=== PATIENT | female | born 1960 | race African-American/Black ===

== ENCOUNTER 2017-07-06 09:45 | Inpatient (IN) | payer MEDICAID ==
[~2017-07-06] VITALS: Ht 170.2 cm; Wt 80.7 kg
[~2017-07-06 09:45] MED LIST: ASPI-1169 PO; ATOR10TA PO; Folic Acid PO; HYDR25TA4 PO; LISI40TA4 PO; METO25TA20 PO; THIA100T13 PO
[2017-07-06] MEDS ORDERED: IV NS 0.9% 1,000 ML BAG IV ONE (10:30)
[2017-07-06] MEDS ORDERED: ONDANSETRON HCL/PF 4 MG/2 ML VIAL IVP ONE (10:30)
[2017-07-06 10:35] LABS: BASOPHILS # (AUTO) 0.3 /CMM (0.0-0.2); BASOPHILS % (AUTO) 3.6 % (0.0-2.0); EOSINOPHILS % (AUTO) 0.5 % (0.0-6.0); HEMATOCRIT 36 % (33-45); LYMPHOCYTES # (AUTO) 1.6 /CMM (0.8-4.8); LYMPHOCYTES % (AUTO) 20.4 % (20.0-44.0); MEAN CORPUSCULAR HEMOGLOBIN 32 PG (26.0-33.0); MEAN CORPUSCULAR HGB CONC 34 g/dl (31.0-36.0); MEAN CORPUSCULAR VOLUME 95 fL (82-100); MONOCYTES # (AUTO) 0.7 /CMM (0.1-1.30); MONOCYTES % (AUTO) 8.9 % (2.0-12.0); NEUTROPHILS # (AUTO) 5.4 /CMM (1.8-8.9); NEUTROPHILS % (AUTO) 66.6 % (43.0-81.0); PLATELET COUNT (AUTO) 289 /CMM (150-450); RDW COEFFICIENT OF VARIATION 13.4 (11.5-15.0); RED BLOOD CELL COUNT(AUTO) 3.79 MIL/uL (4.0-5.2)
[2017-07-06 10:49] LABS: INR 0.9 (0.85-1.15)
[2017-07-06 10:51] LABS: BILIRUBIN,DIRECT 0.3 mg/dL (0.0-0.2); BILIRUBIN,TOTAL 0.6 mg/dL (0.2-1.0); CALCIUM, SERUM 9.8 mg/dL (8.5-10.1); CREATININE 1.8 mg/dL (0.6-1.3); POTASSIUM 3.6 mmol/L (3.5-5.1); TOTAL PROTEIN, SERUM 8.1 g/dL (6.4-8.2)
[2017-07-06 10:53] LABS: TROPONIN I 0.064 ng/mL (0.00-0.056)
--- NOTE | 2017-07-06 11:00 | NUR ---
ASSUME PT CARE. FROM HOME C/O DIZZINESS AND NAUSEA FOR THE PAST 2 MONTHS AND GOT WORST THE PAST WEEK. PT ON MONITOR. HYPOTENSIVE. AAOX4. NO C/O CP. SEEN BY KAREN.
[2017-07-06] MEDS ORDERED: ONDANSETRON HCL/PF 4 MG/2 ML VIAL ONE (11:12)
--- NOTE | 2017-07-06 11:15 | NUR ---
RADIOLOGY AT BEDSIDE FOR CHEST XRAY.
--- NOTE | 2017-07-06 11:47 | NUR ---
CALLED [facility] EXPORT FREIGHT MANAGER WAS PAGED.
--- NOTE | 2017-07-06 12:16 | NUR ---
LAYO RANDOLPH CALLED, ON THE PHONE WITH DR FOWLER.
--- NOTE | 2017-07-06 12:21 | NUR ---
REPORT GIVEN TO NURSE. PT AWAITING TRANSFER TO FLOOR.
[2017-07-06] MEDS ORDERED: ASPIRIN 325 MG TABLET PO ONE (12:30)
[2017-07-06] MEDS ORDERED: ASPIRIN 325 MG TABLET ONE (12:33)
[2017-07-06 13:00] VITALS: BP_SYST 83; BP_SYST 94; BP_SYST 95; BP_DIAS 52; BP_DIAS 55; BP_DIAS 63
--- NOTE | 2017-07-06 13:00 | NUR ---
MOISTURE METER OPERATORELECTRICAL ENGINEERING TECHNICIAN NOTE PATIENT CAME FROM HOME COMPLAINING OF DIZZINESS FOR ABOUT TWO MONTHS AND PROGRESSIVELY GOT WORSE OVER A FEW WEEKS. PATIENT CAME TO ER, THEN ADMITTED FOR HYPONATREMIA. PATIENT IS ALERT AND ORIENTED x4. NO PAIN AT THIS TIME. NO SOB OR DISTRESS NOTED, ON ROOM AIR O2 SAT AT 100% TOLERATING WELL. RIGHT AC 20G IV INTACT AND PATENT. HISTORY OF HTN. CURRENTLY HAVING ORTHOSTATIC HYPOTENSION, CARDIO MD AWARE AWAITING CONSULT. AMBULATORY, NO SKIN ISSUES PRESENT. AWAITING MD ORDERS. NPO AT THIS TIME FOR US ABDOMEN TO RULE OUT ELEVATED LFT'S. TELE MONITOR-SR 78. WILL CONTINUE TO MONITOR THROUGHOUT SHIFT.
[2017-07-06 13:20] VITALS: BP 94/52
[2017-07-06] MEDS ORDERED: MAG HYDROX/AL HYDROX/SIMETH 30 ML UDC PO PRN (13:30)
[2017-07-06] MEDS ORDERED: MAGNESIUM HYDROXIDE 30 ML UDC PO PRN (13:30)
[2017-07-06] MEDS ORDERED: ACETAMINOPHEN 325 MG TABLET PO PRN (13:30)
[2017-07-06] MEDS ORDERED: ONDANSETRON HCL/PF 4 MG/2 ML VIAL IVP PRN (13:30)
[2017-07-06] MEDS ORDERED: HYDROCODONE/APAP 5/325MG 1 EACH TABLET PO PRN (13:30)
[2017-07-06] MEDS ORDERED: Z GUARD REMEDY 2 OZ OINT TP PRN (13:30)
[2017-07-06] MEDS ORDERED: LORAZEPAM INJ 2 MG/ML VIAL IV PRN (14:00)
[2017-07-06] MEDS: IV NS 0.9% 1,000 ML IV PRN (14:04)
--- NOTE | 2017-07-06 18:51 | NUR ---
SWIMMING POOL SERVICER CLOSING NOTE PATIENT IS RESTING COMFORTABLY AT THIS TIME. NO SOB OR DISTRESS NOTED. NO PAIN NOTED. ABLE TO COMMUNICATE NEEDS. IV INTACT AND PATENT WITH IV FLUIDS RUNNING AT 75 ML/HR. ABLE TO COMMUNICATE NEEDS. TELE MONITOR-80. AWAITING CARDIAC CONSULT WITH DR. GOMEZ. ALL NURSING CARE NEEDS ATTENDED. WILL ENDORSE TO BEEF CATTLE FARM MANAGER NURSE FOR TERESITA
--- NOTE | 2017-07-06 19:20 | NUR ---
TELE/RN NOTES RECEIVED PT. LYING IN BED. AWAKE, ALERT AND ORIENTED X4. BREATHING EVEN AND UNLABORED ON ROOM AIR. NO SOB, RESPIRATORY DISTRESS OR COMPLAINTS OF PAIN NOTED AT THIS TIME. NO COMPLAINTS OF LIGHTHEADED OR DIZZINESS AT THIS TIME. PT. WITH EXTERNAL AFFILIATE MARKETING COORDINATOR PRESENT AND INTACT. CURRENT RHYTHM = SINUS RHYTHM HR 99. PT. WITH RIGHT AC 20 GAUGE PERIPHERAL IV PRESENT, PATENT AND INTACT ADMINISTERING TO PT. NS @ 75 ML/HR. EDUCATED PT. ON CALLING FOR ASSISTANCE BEFORE AMBULATING. PT. VERBALIZED UNDERSTANDING. BED LOCKED AND IN LOWEST POSITION, SIDE RAILS UP X2, BED ALARM ON, CALL LIGHT WITHIN REACH, WILL CONTINUE TO MONITOR.
[2017-07-06 20:21] VITALS: BP 76/42
[2017-07-06 20:22] VITALS: BP 85/57
--- NOTE | 2017-07-06 23:45 | NUR ---
TELE/RN NOTES NOTIFIED EPIC SPEARER DR. WASHINGTON THAT PT. IS ON JAZZ SINGER AND IT IS SINUS RHYTHM WITH FIRST DEGREE BLOCK. UPON ADMISSION PT. WAS SINUS RHYTHM. PT. IS ASYMPTOMATIC. NO COMPLAINTS OF CHEST PAIN, SOB, LIGHTHEADED OR DIZZINESS. PER DR. WASHINGTON OK NO NEW ORDERS AT THIS TIME. WILL CONTINUE TO MONITOR.
[2017-07-07] VITALS: BP 97/61
--- NOTE | 2017-07-07 06:11 | NUR ---
TELE/RN NOTES PT. IS LYING IN BED. AWAKE, ALERT AND ORIENTED X4. BREATHING EVEN AND UNLABORED ON ROOM AIR. NO SOB, RESPIRATORY DISTRESS OR COMPLAINTS OF PAIN NOTED AT THIS TIME. NO COMPLAINTS OF LIGHTHEADED OR DIZZINESS AT THIS TIME AND THROUGHOUT SHIFT. PT. WITH EXTERNAL CHASSIS MECHANIC PRESENT AND INTACT. CURRENT RHYTHM = SINUS RHYTHM WITH FIRST DEGREE BLOCK HR 73. PT. WITH RIGHT AC 20 GAUGE PERIPHERAL IV PRESENT, PATENT AND INTACT ADMINISTERING TO PT. NS @ 75 ML/HR. ALL PT. NEEDS MET. BED LOCKED AND IN LOWEST POSITION, SIDE RAILS UP X2, BED ALARM ON, CALL LIGHT WITHIN REACH, WILL ENDORSE TO DAYSHIFT NURSE FOR CONTINUITY OF CARE.
[2017-07-07 07:18] LABS: BASOPHILS # (AUTO) 0.1 /CMM (0.0-0.2); BASOPHILS % (AUTO) 0.7 % (0.0-2.0); EOSINOPHILS # (AUTO) 0.1 /CMM (0.0-0.7); EOSINOPHILS % (AUTO) 0.9 % (0.0-6.0); HEMATOCRIT 32 % (33-45); HEMOGLOBIN 10.9 g/dL (11.5-14.8); LYMPHOCYTES # (AUTO) 2.4 /CMM (0.8-4.8); LYMPHOCYTES % (AUTO) 35.2 % (20.0-44.0); MEAN CORPUSCULAR HEMOGLOBIN 32 PG (26.0-33.0); MEAN CORPUSCULAR HGB CONC 34 g/dl (31.0-36.0); MEAN CORPUSCULAR VOLUME 94 fL (82-100); MONOCYTES # (AUTO) 0.8 /CMM (0.1-1.30); MONOCYTES % (AUTO) 12.4 % (2.0-12.0); NEUTROPHILS # (AUTO) 3.5 /CMM (1.8-8.9); NEUTROPHILS % (AUTO) 50.8 % (43.0-81.0); PLATELET COUNT (AUTO) 264 /CMM (150-450); RDW COEFFICIENT OF VARIATION 13.8 (11.5-15.0); RED BLOOD CELL COUNT(AUTO) 3.38 MIL/uL (4.0-5.2); WHITE BLOOD COUNT (AUTO) 6.8 K/uL (4.3-11.0)
[2017-07-07 07:47] LABS: ALBUMIN 3.7 g/dL (3.4-5.0); BILIRUBIN,DIRECT 0.2 mg/dL (0.0-0.2); BILIRUBIN,TOTAL 0.6 mg/dL (0.2-1.0); CALCIUM, SERUM 9.7 mg/dL (8.5-10.1); CREATININE 1.2 mg/dL (0.6-1.3); PHOSPHORUS 3.4 mg/dL (2.5-4.9); POTASSIUM 3.6 mmol/L (3.5-5.1); TOTAL PROTEIN, SERUM 7.6 g/dL (6.4-8.2)
[2017-07-07 07:57] LABS: THYROID STIMULATING HORMONE 0.801 uIU/mL (0.358-3.74)
[2017-07-07 08:00] VITALS: BP 102/71
--- NOTE | 2017-07-07 09:30 | NUR ---
BP IN AM INITIALLY ORTHOSTATIC,WITH PHYSICAL TX.PT. WITH LITTLE DIZZINESS AFTER THAT,INSTRUCTED TO GET UP SLOWLY.IV INFUSING NO NOTATION OF ALCOHOL WITHDRAWAL SYMPTOMS.FRIEND IN TO VISIT. MED COMPLIANT.
[2017-07-07] MEDS: ASPIRIN 81 MG TAB.CHEW PO SCH (09:57)
[2017-07-07] MEDS: IV NS 0.9% 1,000 ML IV PRN ×2 (09:59→22:48)
[2017-07-07 16:00] VITALS: BP 102/65
--- NOTE | 2017-07-07 18:00 | NUR ---
NO CHANGE IN STATUS.
--- NOTE | 2017-07-07 19:45 | NUR ---
RN Initial Notes Received pt laying in bed with HOB elevated. A/o x4 afebrile. Respirations are even and unlabored, not in any acute distress noted. Denies any pain at this time. IV to RAC intact, no infiltration noted. Dressing kept clean and dry. Safety measures in place. Instructed pt to use call light when assistance is needed, call light is left within reach. Will continue to monitor throughout shift.
[2017-07-07 20:00] VITALS: BP 95/63
--- NOTE | 2017-07-08 06:28 | NUR ---
RN Notes-- Orthostatics Lying-- BP 106/70 HR 77, R18, T98.1, SPO2 98% RA Sitting-- BP 112/70, HR 78, R18, T 98.1 SPO2 98% RA Standing-- BP 105/75 HR 84, R18, T98.1, SPO2 98% RA No dizziness noted. Will continue to monitor.
--- NOTE | 2017-07-08 06:30 | NUR ---
RN Closing Notes All due meds given, needs met and rendered. A/o x4, easily arousable, remains afebrile. Respirations are even and unlabored, not in any acute distress noted. Denies any pain, SOB, n/v. IV to RAC intact and patent, no infiltration noted. Dressing kept clean and dry. Pt able to reposition self. Safety measures in place. Reminded pt to use call light when assistance is needed, call light left within reach. Will endorse to next shift for continuity of care.
--- NOTE | 2017-07-08 07:30 | NUR ---
RN NOTES: - received on bed, alert, talking with co-patient non-labored respiration, denies pain , IV infusing well, tolerating oral fluids.
[2017-07-08 08:00] VITALS: BP 112/70
[2017-07-08] MEDS: ASPIRIN 81 MG TAB.CHEW PO SCH (08:52)
--- NOTE | 2017-07-08 14:25 | NUR ---
- dISCHARGED INSTRUCTIONS GIVEN WITH EMPHASIS TO HAVE HER PHYSICAL CHANGE OF POSITION FROM LYING DOWN TO SITTING THEN TO STANDING IN SLOW MOVEMENT TO PREVENT SUDDEN DECREASE OF BLOOD PRESSURE THUS AVOIDING DIZZINESS, TO DRINK MORE ORAL FLUIDS & TO FOLLW UP WITH OWN MD AT [facility]. PATIENT WAS DISCHARGED ALERT, & ORIENTED X4, WAS TRANSPORTED DOWN VIA WHEELCHAIR BY ASSIGNED STONEMASON APPRENTICE.IV SITE WAS REMOVED & APPLIED WITH PRESSURE DRESSING.
== END 2017-07-08 14:29 | disposition home or self-care (01) | DRG 204 ==
LOC: ER 09:46 → TELE 12:34 → MED 07-07 10:55
PROVIDERS: ADMIT Nurse Practitioner Acute Care; ATTEND Nurse Practitioner Acute Care
DX: I95.1 Orthostatic hypotension (principal); N17.0 Acute kidney failure with tubular necrosis; I21.A1 Myocardial infarction type 2; K76.0 Fatty (change of) liver, not elsewhere classified; K70.10 Alcoholic hepatitis without ascites; E86.0 Dehydration; E87.1 Hypo-osmolality and hyponatremia; I10 Essential (primary) hypertension; Z86.73 Personal history of transient ischemic attack (TIA), and cerebral infarction without residual deficits; T50.2X5A Adverse effect of carbonic-anhydrase inhibitors, benzothiadiazides and other diuretics, initial encounter; Y92.009 Unspecified place in unspecified non-institutional (private) residence as the place of occurrence of the external cause; R74.0 Nonspecific elevation of levels of transaminase and lactic acid dehydrogenase [LDH]; D64.9 Anemia, unspecified; F10.10 Alcohol abuse, uncomplicated; Y90.9 Presence of alcohol in blood, level not specified
CPT/HCPCS: 36415; 70450-TC; 71045-TC; 76700-TC; 80048-TC; 80061-TC; 80076-TC; 83605-TC; 83735-TC; 83935-TC; 84100-TC; 84443-TC; 84484-TC; 85025-TC; 85730-TC; 87081-TC; 93307-TC; 97116-TC; 97530-TC; A4606; J2405; J7030; Z7610

== ENCOUNTER 2019-07-02 02:24 | Emergency (ER) | payer MEDICAID ==
[~2019-07-02] VITALS: Ht 170.2 cm; Wt 81.6 kg
[~2019-07-02 02:24] MED LIST changes: -ATOR10TA PO; -Folic Acid PO; -HYDR25TA4 PO; -LISI40TA4 PO; -METO25TA20 PO; -THIA100T13 PO
--- NOTE | 2019-07-02 02:48 | NUR ---
PT CAME TO [facility] 4 W/ C/O SOB WHEN LYING DOWN. PT STATES IT HAPPENED WHEN SHE WOKE UP AND FELT UNCOMFORTABLE BREATHING. AAOX4. NO SOB. BREATHING EVENLY AND UNLABORED ON ROOM AIR. CONNECTED TO MORTGAGE LOAN SPECIALIST.
--- NOTE | 2019-07-02 02:49 | NUR ---
PT SEEN AND EXAMINED BY
--- NOTE | 2019-07-02 03:03 | NUR ---
XRAY AT BEDSIDE
--- NOTE | 2019-07-02 03:03 | NUR ---
BLOOD DRAWN AND SENT TO LAB FOR TESTING
[2019-07-02 03:07] LABS: BASOPHILS # (AUTO) 0.1 /CMM (0.0-0.2); BASOPHILS % (AUTO) 1.2 % (0.0-2.0); EOSINOPHILS % (AUTO) 0.3 % (0.0-6.0); HEMATOCRIT 41 % (33-45); HEMOGLOBIN 14.4 g/dL (11.5-14.8); LYMPHOCYTES # (AUTO) 1.7 /CMM (0.8-4.8); LYMPHOCYTES % (AUTO) 25.9 % (20.0-44.0); MEAN CORPUSCULAR HGB CONC 35 g/dl (31.0-36.0); MEAN CORPUSCULAR VOLUME 92 fL (82-100); MONOCYTES # (AUTO) 0.5 /CMM (0.1-1.30); MONOCYTES % (AUTO) 7.4 % (2.0-12.0); NEUTROPHILS # (AUTO) 4.3 /CMM (1.8-8.9); NEUTROPHILS % (AUTO) 65.2 % (43.0-81.0); PLATELET COUNT (AUTO) 245 /CMM (150-450); WHITE BLOOD COUNT (AUTO) 6.6 K/uL (4.3-11.0)
[2019-07-02 03:23] LABS: CALCIUM, SERUM 9.9 mg/dL (8.5-10.1); CREATININE 0.8 mg/dL (0.6-1.3); POTASSIUM 3.8 mmol/L (3.5-5.1)
[2019-07-02] MEDS ORDERED: ASPIRIN 325 MG TABLET PO ONE (04:00)
[2019-07-02] MEDS ORDERED: NITROGLYCERIN 0.4 MG/TAB BOTTLE SL ONE (04:00)
[2019-07-02] MEDS ORDERED: ENOXAPARIN SODIUM 80 MG/0.8 ML DISP.SYRIN SQ ONE (04:00)
[2019-07-02] MEDS ORDERED: ENOXAPARIN SODIUM 100 MG/ML DISP.SYRIN SQ ONE (04:07)
--- NOTE | 2019-07-02 05:07 | NUR ---
DR. FREY ON THE PHONE WITH DR. KENDRICK ([facility])
--- NOTE | 2019-07-02 05:29 | NUR ---
FAXED CLINICAL INFORMATION TO [facility]
--- NOTE | 2019-07-02 05:35 | NUR ---
DR. FREY ON THE PHONE WITH DR. ALEIDA GANN FOR POSSIBLE TRANSFER
--- NOTE | 2019-07-02 05:45 | NUR ---
PER [facility], ACOUSTICAL CARPENTER RECOMMEND CTA CHEST R/O PE FAX RESULTS TO [phone]
[2019-07-02] MEDS ORDERED: IOHEXOL-350 100 ML VIAL IV ONE (05:52)
[2019-07-02] MEDS ORDERED: CT SWABBABLE VALVE TRANS SET 1 EA INFUS.SET MC ONE (05:52)
[2019-07-02] MEDS ORDERED: IV NS 0.9% 250 ML IV ONE (05:52)
[2019-07-02] MEDS ORDERED: diphenhydrAMINE HCL 50 MG/ML VIAL ONE (06:10)
[2019-07-02] MEDS ORDERED: methylPREDNISolone SOD SUCC 125 MG/2ML VIAL ONE (06:10)
--- NOTE | 2019-07-02 06:10 | NUR ---
PT STATES SHE HAS A SHELLFISH ALLERGY, PER VERBAL MD ORDER WILL ADMINISTER BENADRYL 50MG IV X1 NOW AND SOLUMEDROL 125MG IV X1 NOW PRIOR TO CT
--- NOTE | 2019-07-02 06:26 | NUR ---
RECEIVED AUTHORIZATION FROM NICKY ([employer]) FOR PATIENT'S ADMISSION.
[2019-07-02] MEDS ORDERED: diphenhydrAMINE HCL 50 MG/ML VIAL IV ONE (06:30)
[2019-07-02] MEDS ORDERED: methylPREDNISolone SOD SUCC 125 MG/2ML VIAL IV ONE (06:30)
--- NOTE | 2019-07-02 06:30 | NUR ---
PT RETURNED FROM CT
[2019-07-02] MEDS ORDERED: LORAZEPAM INJ 2 MG/ML VIAL ONE ×2 (07:17→08:54)
[2019-07-02] MEDS ORDERED: LORAZEPAM INJ 2 MG/ML VIAL IV ONE ×2 (07:30→09:00)
--- NOTE | 2019-07-02 07:51 | NUR ---
PATIENT ALERT AND ORIENTED X4, BREATHING EVEN AND UNLABORED, DENIES PAIN AT THIS TIME. KEPT COMFORTABLE.
[2019-07-02 07:56] VITALS: BP 119/72
[2019-07-02] MEDS ORDERED: ATOR40TA PO (07:56)
[2019-07-02] MEDS ORDERED: HYDR25TA4 PO (07:56)
[2019-07-02] MEDS ORDERED: LISI40TA4 PO (07:56)
[2019-07-02] MEDS ORDERED: AMLO5TAB9 PO (07:56)
--- NOTE | 2019-07-02 08:15 | NUR ---
CALLED [facility] TELESTROKE AND SPOKE WITH CARLTON. SHE RECIEVED THE FAX OF THE CTA AND WILL RUN IT BY HER SPECIAL EFFECTS SPECIALIST. WILL CALL BACK AFTER CARDIO LOOKS OVER RESULTS.
--- NOTE | 2019-07-02 08:42 | NUR ---
CALLED [facility] AND TELESTROKE. SPOKE WITH CARLTON AND THE CCT TRANSFER TEAM WILL PROFESSOR OF LEGAL STUDIES THE PT. SHE WILL BE GOING INTO PICK UP OPERATOR TOMORROW MORNING. ETA 1 HR.
--- NOTE | 2019-07-02 09:25 | NUR ---
REPORT AMARIST Jg ARREDONDO CCRT AND MARBELLA RN AT [facility]. PATIENT WILL GO TO ROOM 2320. PATIENT IN STABLE CONDITION.
--- NOTE | 2019-07-02 09:39 | NUR ---
PATIENT TRANSFERRED TO [facility] IN STABLE CONDITION.
== END 2019-07-02 09:40 | disposition short-term general hospital (02) ==
LOC: ER 02:25
DX: I21.4 Non-ST elevation (NSTEMI) myocardial infarction (principal); R06.02 Shortness of breath; F10.239 Alcohol dependence with withdrawal, unspecified; I10 Essential (primary) hypertension; E78.00 Pure hypercholesterolemia, unspecified; Y90.9 Presence of alcohol in blood, level not specified; Z91.013 Allergy to seafood; Z60.2 Problems related to living alone; Z79.82 Long term (current) use of aspirin
CPT/HCPCS: 36415; 71045; 71275; 80048; 83880; 84484 ×2; 85025; 85378; 93005 ×5; 96372; 96374; 96375; 96376; 99291; J1200; J1650; J2060 ×2; J2930; J7050; Q9967

== ENCOUNTER 2019-11-21 00:37 | Inpatient (IN) | payer MEDICAID ==
[~2019-11-21] VITALS: Ht 170.2 cm; Wt 84.4 kg
[~2019-11-21 00:37] MED LIST changes: +AMLO5TAB9 PO; +ATOR40TA PO; +HYDR25TA4 PO; +LISI40TA4 PO
--- NOTE | 2019-11-21 00:40 | NUR ---
PT AAOX4. BIBRA 839 C/O R SIDED ABD PAIN RADIATING TO THE BACK X 4 DAYS. PT STATED IT HAS BEEN HURTING AND TODAY GOT WORSE. PT PLACED ON MECHANICAL MAINTENANCE TECHNICIAN AND PULSE OX. RR EVEN AND UNLABORED.
--- NOTE | 2019-11-21 00:42 | NUR ---
LABS DRAW. LINE INITIATED L HAND 20G
--- NOTE | 2019-11-21 01:17 | NUR ---
care transition manager at bedside
[2019-11-21 01:22] LABS: BASOPHILS # (AUTO) 0.1 /CMM (0.0-0.2); EOSINOPHILS % (AUTO) 2.1 % (0.0-6.0); HEMATOCRIT 41 % (33-45); HEMOGLOBIN 14.3 g/dL (11.5-14.8); LYMPHOCYTES # (AUTO) 4.3 /CMM (0.8-4.8); LYMPHOCYTES % (AUTO) 60.6 % (20.0-44.0); MEAN CORPUSCULAR HGB CONC 35 g/dl (31.0-36.0); MEAN CORPUSCULAR VOLUME 90 fL (82-100); MONOCYTES # (AUTO) 0.6 /CMM (0.1-1.30); MONOCYTES % (AUTO) 8.8 % (2.0-12.0); NEUTROPHILS # (AUTO) 1.9 /CMM (1.8-8.9); NEUTROPHILS % (AUTO) 27.5 % (43.0-81.0); PLATELET COUNT (AUTO) 222 /CMM (150-450); RED BLOOD CELL COUNT(AUTO) 4.53 MIL/uL (4.0-5.2); WHITE BLOOD COUNT (AUTO) 7.1 K/uL (4.3-11.0)
--- NOTE | 2019-11-21 01:24 | NUR ---
xray at bedside
[2019-11-21] MEDS ORDERED: IV NS 0.9% 500 ML BAG IV ONE (01:30)
[2019-11-21] MEDS ORDERED: ONDANSETRON HCL/PF 4 MG/2 ML VIAL IVP ONE (01:30)
[2019-11-21] MEDS ORDERED: MORPHINE SULFATE INJ 2 MG/ML DISP.SYRIN IV ONE (01:30)
[2019-11-21 01:37] LABS: ALBUMIN 4.1 g/dL (3.4-5.0); BILIRUBIN,DIRECT 0.1 mg/dL (0.0-0.2); BILIRUBIN,TOTAL 0.5 mg/dL (0.2-1.0); CALCIUM, SERUM 9.2 mg/dL (8.5-10.1); CREATININE 0.8 mg/dL (0.6-1.3); POTASSIUM 3.5 mmol/L (3.5-5.1); TOTAL PROTEIN, SERUM 8.2 g/dL (6.4-8.2)
--- NOTE | 2019-11-21 01:50 | NUR ---
PT STATED SHE DOES NOT WANT MORPHINE.
[2019-11-21] MEDS ORDERED: LORAZEPAM INJ 2 MG/ML VIAL IV ONE ×2 (02:00→14:30)
--- NOTE | 2019-11-21 02:02 | NUR ---
PT AMBULATED TO THE RESTROOM.
[2019-11-21] MEDS ORDERED: LORAZEPAM INJ 2 MG/ML VIAL ONE (02:12)
--- NOTE | 2019-11-21 02:19 | NUR ---
SPOKE TO PT REGARDING HOME MEDS. PT PROVIDED 3 HOME MEDS BUT STATED SHE TAKES MORE. I ASKED PT TO CALL FAMILY TO OBTAIN FULL LIST. VSS.
--- NOTE | 2019-11-21 02:22 | NUR ---
URINE SENT TO LAB
[2019-11-21 02:51] LABS: APPEARANCE,URINE CLEAR (CLEAR); BILIRUBIN,URINE NEGATIVE (NEGATIVE); BLOOD, URINE NEGATIVE Ery/uL (NEGATIVE); COLOR,URINE YELLOW (YELLOW); KETONES,URINE NEGATIVE (NEGATIVE); LEUKOCYTE ESTERASE ,URINE TRACE (NEGATIVE); NITRITE, URINE NEGATIVE (NEGATIVE); PH,URINE 7.5 (5.0-8.0); PROTEIN,URINE NEGATIVE (NEGATIVE); UGLUCOSE NEGATIVE (NEGATIVE)
[2019-11-21 02:53] LABS: BACTERIA,URINE Few /HPF (None Seen); RBC,URINE 0-2 /HPF (0-2); SQUAMOUS EPITHELIAL CELL,UR Moderate /HPF (None Seen)
[2019-11-21] MEDS ORDERED: ONDANSETRON HCL/PF 4 MG/2 ML VIAL IVP PRN (03:00)
[2019-11-21] MEDS ORDERED: IV NS 0.9% 500 ML IV ONE (03:00)
[2019-11-21] MEDS ORDERED: MAG HYDROX/AL HYDROX/SIMETH 30 ML UDC PO PRN (03:00)
[2019-11-21] MEDS ORDERED: DOCUSATE SODIUM 100 MG CAPSULE PO PRN (03:00)
[2019-11-21] MEDS ORDERED: NITROGLYCERIN 0.4 MG/TAB BOTTLE SL PRN (03:00)
[2019-11-21] MEDS ORDERED: ACETAMINOPHEN 325 MG TABLET PO PRN (03:00)
--- NOTE | 2019-11-21 03:41 | NUR ---
REPORT GIVEN TO TELE FOR TERESITA
--- NOTE | 2019-11-21 03:55 | NUR ---
PT TRANSFERED PER ACLS PROTOCOL
--- NOTE | 2019-11-21 04:00 | NUR ---
HEAD CD REACTOR OPERATOR OPEN NOTES RECEIVED PT FROM ER VIA RADHA. PATIENT IS A/O X4. ON RA, NO SOB/ ACUTE RESPIRATORY DISTRESS NOTED. AMBULATORY. APPEARS COMFORTABLE/ NO COMPLAINTS OF PAIN AT THE MOMENT. PATIENT ORIENTED TO ROOM. BED IS IN LOWEST LOCKED POSITION WITH SIDE RAILS UP X2, SEMI FOWLERS. CALL LIGHT IS WITHIN REACH. VITALS UPON ADMISSION: 120/87, HR 106, RR 18, TEMP 98.8 O2 SAT 96%
--- NOTE | 2019-11-21 06:17 | NUR ---
RN CLOSE NOTES PATIENT IS LAYING IN BED. A/O X4. ON RA, NO SOB/ ACUTE RESPIRATORY DISTRESS NOTED. APPEARS COMFORTABLE/ NO COMPLAINTS OF PAIN AT THE MOMENT. IV ON L HAND #20G IS PATENT AND INTACT. PATIENT IS AMBULATORY. BED IS IN LOWEST LOCKED POSITION WITH SIDE RAILS UP X2, SEMI FOWLERS. CALL LIGHT IS WITHIN REACH. WILL ENDORSE TO AM NURSE.
--- NOTE | 2019-11-21 06:30 | NUR ---
RN NOTES VTE SCORE: 2 COMPRESSION DEVICE APPLIED TO BOTH LEGS AND PATIENT IS ON LOVENOX.
--- NOTE | 2019-11-21 07:30 | NUR ---
RN OPENING NOTES PATIENT AWAKE IN BED RESTING. NOT IN NAY FORM OF DISTRESS, NO SOB. DENIED CHEST PAIN OR DISCOMFORT. IV ACCESS INTACT AND PATENT. KEPT PATIENT SAFE AND COMFORTABLE. BED IN LOW, LOCKED POSITION. SIDERAILS UPX2,C ALL LIGHT IN REACH. WILL CONT TO MONITOR ACCORDINGLY.
[2019-11-21] MEDS ORDERED: IV NS 0.9% 1,000 ML IV PRN (07:41)
[2019-11-21 08:20] LABS: BASOPHILS # (AUTO) 0.1 /CMM (0.0-0.2); EOSINOPHILS % (AUTO) 0.3 % (0.0-6.0); HEMATOCRIT 40 % (33-45); HEMOGLOBIN 14.1 g/dL (11.5-14.8); LYMPHOCYTES # (AUTO) 2.4 /CMM (0.8-4.8); LYMPHOCYTES % (AUTO) 36.7 % (20.0-44.0); MEAN CORPUSCULAR HGB CONC 36 g/dl (31.0-36.0); MEAN CORPUSCULAR VOLUME 89 fL (82-100); MONOCYTES # (AUTO) 0.6 /CMM (0.1-1.30); MONOCYTES % (AUTO) 9.3 % (2.0-12.0); NEUTROPHILS # (AUTO) 3.4 /CMM (1.8-8.9); NEUTROPHILS % (AUTO) 52.7 % (43.0-81.0); PLATELET COUNT (AUTO) 219 /CMM (150-450); RED BLOOD CELL COUNT(AUTO) 4.43 MIL/uL (4.0-5.2); WHITE BLOOD COUNT (AUTO) 6.4 K/uL (4.3-11.0)
[2019-11-21 08:51] LABS: ALBUMIN 4.2 g/dL (3.4-5.0); BILIRUBIN,TOTAL 0.9 mg/dL (0.2-1.0); CALCIUM, SERUM 9.2 mg/dL (8.5-10.1); CREATININE 0.8 mg/dL (0.6-1.3); PHOSPHORUS 3.8 mg/dL (2.5-4.9); POTASSIUM 3.7 mmol/L (3.5-5.1); TOTAL PROTEIN, SERUM 8.5 g/dL (6.4-8.2)
[2019-11-21 08:53] LABS: THYROID STIMULATING HORMONE 1.646 uIU/mL (0.358-3.74)
[2019-11-21] MEDS ORDERED: LISINOPRIL (20MG) 20 MG TABLET PO SCH (09:00)
[2019-11-21] MEDS ORDERED: ASPIRIN 325 MG TABLET PO SCH (09:00)
[2019-11-21] MEDS ORDERED: CEPHALEXIN MONOHYDRATE 500 MG CAPSULE PO SCH (09:00)
[2019-11-21] MEDS ORDERED: HYDROCHLOROTHIAZIDE 25 MG TABLET PO SCH (09:00)
[2019-11-21] MEDS ORDERED: ATORVASTATIN 40 MG TABLET PO SCH (09:00)
[2019-11-21] MEDS ORDERED: METOPROLOL TARTRATE 25 MG TABLET PO SCH (09:00)
[2019-11-21] MEDS ORDERED: ENOXAPARIN SODIUM 80 MG/0.8 ML DISP.SYRIN SQ SCH (09:00)
[2019-11-21] MEDS ORDERED: AMLODIPINE BESYLATE 5 MG TABLET PO SCH ×2 (09:00→22:00)
[2019-11-21] MEDS ORDERED: ENOXAPARIN SODIUM 40 MG/0.4 ML DISP.SYRIN SQ SCH (09:00)
[2019-11-21] MEDS: POTASSIUM CHLORIDE 20 MEQ TAB.PRT.SR PO SCH ×3 (09:38→12:42)
[2019-11-21] MEDS ORDERED: NITROGLYCERIN 0.4 MG/TAB BOTTLE ONE (09:40)
[2019-11-21] MEDS ORDERED: IOHEXOL-350 100 ML VIAL IV ONE (09:40)
[2019-11-21] MEDS ORDERED: METOPROLOL TARTRATE INJ 5 MG/5 ML AMPUL ONE ×2 (09:40→10:18)
--- NOTE | 2019-11-21 09:40 | NUR ---
rn notes pt picked up for ct angio.
[2019-11-21] MEDS ORDERED: IV NS 0.9% 250 ML IV ONE (09:41)
[2019-11-21] MEDS ORDERED: METOPROLOL TARTRATE INJ 5 MG/5 ML AMPUL IVP ONE ×2 (10:00→10:30)
[2019-11-21] MEDS ORDERED: IV NS 0.9% 500 ML IV PRN ×2 (10:00→10:30)
[2019-11-21] MEDS ORDERED: NITROGLYCERIN 0.4 MG/TAB BOTTLE SL ONE (10:00)
[2019-11-21] MEDS: METOPROLOL TARTRATE INJ 5 MG/5 ML AMPUL IVP PRN ×13 (10:06→10:46)
--- NOTE | 2019-11-21 11:10 | NUR ---
from the floor via wheelchair for CTA hear' Given Metoprolol 5 mg IVPx 10 and NTG SL .4 mg, tolerated procedure; VSS' wheeled back to floor; report given to JOSHUA Grossman
[2019-11-21] MEDS ORDERED: POTASSIUM CHLORIDE 20 MEQ TAB.PRT.SR PO ONE (11:30)
[2019-11-21] MEDS ORDERED: METOPROLOL TARTRATE 50 MG TABLET PO SCH (12:00)
[2019-11-21 12:51] VITALS: BP 126/76
--- NOTE | 2019-11-21 14:25 | NUR ---
RN NOTES DR ADRIAN ROJAS AT BEDSIDE TALKING TO THE PATIENT AND GIVING DISCHARGE INSTRUCTIONS.
[2019-11-21] MEDS ORDERED: MAGN400T8 PO (14:38)
[2019-11-21] MEDS ORDERED: THIA100T88 PO (14:38)
--- NOTE | 2019-11-21 15:00 | NUR ---
rn notes patient refused the ativan. explained risk and benefits but still refused. Dr Liu Mcnulty made aware.
--- NOTE | 2019-11-21 16:30 | NUR ---
WASTE EXAMINER NOTES DISCHARGED PATIENT IN STABLE CONDITION. DISCHARGE INSTRUCTIONS GIVEN, VERBALIZED UNDERSTANDING. DC PAPERWORK AND EDUCATIONAL MATERIALS GIVEN TO PATIENT. ALL BELONGINGS RETURNED. IV ACCESS REMOVED, TIP INTACT, APPLIED PRESSURE, NO COMPLICATIONS. NAME BAND REMOVED. REFUSED SKIN PHOTOS, NO WOUNDS PER PATIENT.
[2019-11-21] MEDS ORDERED: SIMVASTATIN 20 MG TABLET PO SCH (22:00)
== END 2019-11-21 16:30 | disposition home or self-care (01) | DRG 190 ==
LOC: ER 00:37 → TELE 02:55
PROVIDERS: ADMIT Nurse Practitioner Acute Care; ATTEND Nurse Practitioner Acute Care
DX: I21.4 Non-ST elevation (NSTEMI) myocardial infarction (principal); I11.0 Hypertensive heart disease with heart failure; I50.32 Chronic diastolic (congestive) heart failure; E66.9 Obesity, unspecified; E78.5 Hyperlipidemia, unspecified; R79.89 Other specified abnormal findings of blood chemistry; F10.20 Alcohol dependence, uncomplicated; Y90.9 Presence of alcohol in blood, level not specified; Z98.42 Cataract extraction status, left eye; Z68.29 Body mass index [BMI] 29.0-29.9, adult; I25.2 Old myocardial infarction
CPT/HCPCS: 36415; 71045-TC; 75574; 80048-TC; 80053-TC; 80061-TC; 80076-TC; 81000-TC; 83735-TC; 84100-TC; 84443-TC; 84484-TC; 85025-TC; 85730-TC; 87081-TC; 93307-TC; G0378; J1650; J2060; J3490; J7040; J7050; Q9967

== ENCOUNTER 2020-01-03 17:12 | Inpatient (IN) | payer MEDICAID ==
[~2020-01-03] VITALS: Ht 170.2 cm; Wt 82.6 kg
[~2020-01-03 17:12] MED LIST changes: +MAGN400T8 PO; +THIA100T88 PO
--- NOTE | 2020-01-03 17:14 | NUR ---
pt self presents to er. ambulatory to er bed 09. pt c/o facial and lip swelling x 2 1/2 hours. denies difficulty breathing or any throat discomfort. pt's tongue appears to be in normal size upon initial assessment. pt states taking lisinopril for high blood pressure. denies any food allergy. admits to drinking vodka and beer since this morning. pt gowned and placed on monitor. awaiting md serrano.
--- NOTE | 2020-01-03 17:35 | NUR ---
dr schwartz at bedside for eval.
[2020-01-03 17:56] LABS: BASOPHILS % (AUTO) 0.6 % (0.0-2.0); EOSINOPHILS % (AUTO) 0.6 % (0.0-6.0); HEMATOCRIT 45 % (33-45); HEMOGLOBIN 15.7 g/dL (11.5-14.8); LYMPHOCYTES # (AUTO) 2.7 /CMM (0.8-4.8); LYMPHOCYTES % (AUTO) 39.7 % (20.0-44.0); MEAN CORPUSCULAR HGB CONC 35 g/dl (31.0-36.0); MEAN CORPUSCULAR VOLUME 90 fL (82-100); MONOCYTES # (AUTO) 0.9 /CMM (0.1-1.30); MONOCYTES % (AUTO) 12.9 % (2.0-12.0); NEUTROPHILS # (AUTO) 3.1 /CMM (1.8-8.9); NEUTROPHILS % (AUTO) 46.2 % (43.0-81.0); PLATELET COUNT (AUTO) 252 /CMM (150-450); RED BLOOD CELL COUNT(AUTO) 4.97 MIL/uL (4.0-5.2); WHITE BLOOD COUNT (AUTO) 6.7 K/uL (4.3-11.0)
[2020-01-03 18:23] LABS: CALCIUM, SERUM 9.4 mg/dL (8.5-10.1); CREATININE 1.1 mg/dL (0.6-1.3); POTASSIUM 3.5 mmol/L (3.5-5.1)
[2020-01-03 18:28] LABS: ALBUMIN 4.1 g/dL (3.4-5.0); BILIRUBIN,DIRECT 0.4 mg/dL (0.0-0.2); TOTAL PROTEIN, SERUM 8.3 g/dL (6.4-8.2)
[2020-01-03] MEDS ORDERED: Z GUARD REMEDY 2 OZ OINT TP PRN (18:30)
[2020-01-03] MEDS ORDERED: HYDROCODONE/APAP 5/325MG 1 EACH TABLET PO PRN (18:30)
[2020-01-03] MEDS ORDERED: ONDANSETRON HCL/PF 4 MG/2 ML VIAL IVP PRN (18:30)
[2020-01-03] MEDS ORDERED: ACETAMINOPHEN 325 MG TABLET PO PRN (18:30)
[2020-01-03] MEDS ORDERED: MAGNESIUM HYDROXIDE 30 ML UDC PO PRN (18:30)
[2020-01-03] MEDS ORDERED: MAG HYDROX/AL HYDROX/SIMETH 30 ML UDC PO PRN (18:30)
[2020-01-03] MEDS ORDERED: IV NS 0.9% 1,000 ML IV ONE ×3 (18:30→19:00)
[2020-01-03] MEDS ORDERED: DIAZEPAM 10 MG TABLET PO ONE (19:00)
--- NOTE | 2020-01-03 19:07 | NUR ---
report given to rose madera for [place].
--- NOTE | 2020-01-03 19:26 | NUR ---
covid swab collected and sent to lab
[2020-01-03] MEDS ORDERED: DIAZEPAM 5 MG TABLET ONE (19:35)
--- NOTE | 2020-01-03 20:32 | NUR ---
PT REFUSING PLASMA, PER PT "THE SWELLING IS GOING DOWN"
--- NOTE | 2020-01-03 21:10 | NUR ---
report called in to laya
--- NOTE | 2020-01-03 21:20 | NUR ---
SEX THERAPIST NOTES RECEIVED PT FROM ER VIA RADHA ACCOMPANIED BY DUST HANDLER MS DIAZ, PT ON RA TOLERATING WELL NO SIGN AND SYMPTOMS OF ANY RESPIRATORY DISTRESS, WALK TO ROOM BED GAIT STABLE, PT LIPS IS SWELLING AND PART OF HER CHEEKS NOTED, NO SOB WAS COMPLAINT BY THE PT, V/S CHECKED WITHIN NORMAL RANGE, HOOKED TO BEDSIDE MONITOR WITH READING SINUS RHYTHM WITH 1ST DEGREE BBB, HEAD TO TOE ASSESSMENT DONE, ADMISSION ASSESSMENT DONE, ORDERED MEDICATION STARTED, ADMINISTERED O2 2L VIA NC, SAFETY MEASURE INITIATED BED ON LOWEST POSITION AND LOCKED SIDE RAILS UP X 2, COMMODE ON BED SIDE, CALL LIGHT WITHIN REACH WILL CONT TO MONITOR
[2020-01-03 21:30] VITALS: BP 133/59
[2020-01-03] MEDS: diphenhydrAMINE HCL 50 MG/ML VIAL IV SCH (21:51)
[2020-01-03] MEDS: methylPREDNISolone SOD SUCC 125 MG/2ML VIAL IV SCH (21:51)
[2020-01-03] MEDS: ASPIRIN 325 MG TABLET PO SCH (21:52)
[2020-01-03] MEDS: IV NS 0.9% 1,000 ML IV SCH (21:59)
[2020-01-03 22:00] VITALS: BP 121/73
[2020-01-03 23:00] VITALS: BP 100/73
[2020-01-04] VITALS (25 sets, daily range): BP systolic 87–157; BP diastolic 47–103
--- NOTE | 2020-01-04 00:06 | NUR ---
RN NOTES BENADRYL AND SOLU MEDROL DOSE FOR 0000 NOT GIVEN BECAUSE LAST DOSE WAS GIVEN @ 2200 AND THE GAP IS VERY CLOSED CHARGE NURSE AWARE
--- NOTE | 2020-01-04 01:00 | NUR ---
RN NOTES REPORTED TO ONCLINO PALOMO NP ABOUT THE PT COMPLAINING OF SHAKINESS BECAUSE OF THE ABSENCE OF ALCOHOL ON HER BODY AND SHE IS REQUESTING IF SHE CAN HAVE A VALIUM WHICH SHE GET FROM ED EARLIER, QUYNH PALOMO NP ORDERED ATIVAN 1MG IVP Q6H PRN INSTEAD OF VALIUM, WA MADE AWARE AND AGREE, NOTED AND CARRIED OUT
[2020-01-04] MEDS: LORAZEPAM INJ 2 MG/ML VIAL IV PRN ×2 (01:23→16:11)
[2020-01-04 04:13] LABS: BASOPHILS % (AUTO) 0.3 % (0.0-2.0); HEMATOCRIT 42 % (33-45); LYMPHOCYTES # (AUTO) 0.6 /CMM (0.8-4.8); LYMPHOCYTES % (AUTO) 12.1 % (20.0-44.0); MEAN CORPUSCULAR HGB CONC 36 g/dl (31.0-36.0); MEAN CORPUSCULAR VOLUME 88 fL (82-100); MONOCYTES # (AUTO) 0.1 /CMM (0.1-1.30); MONOCYTES % (AUTO) 1.3 % (2.0-12.0); NEUTROPHILS # (AUTO) 3.9 /CMM (1.8-8.9); NEUTROPHILS % (AUTO) 86.3 % (43.0-81.0); PLATELET COUNT (AUTO) 233 /CMM (150-450); RED BLOOD CELL COUNT(AUTO) 4.72 MIL/uL (4.0-5.2); WHITE BLOOD COUNT (AUTO) 4.6 K/uL (4.3-11.0)
[2020-01-04 04:32] LABS: CALCIUM, SERUM 8.7 mg/dL (8.5-10.1); CREATININE 0.7 mg/dL (0.6-1.3); MAGNESIUM 2.1 mg/dL (1.8-2.4); PHOSPHORUS 3.7 mg/dL (2.5-4.9); POTASSIUM 3.9 mmol/L (3.5-5.1)
[2020-01-04] MEDS: IV NS 0.9% 1,000 ML IV SCH ×3 (05:06→23:34)
[2020-01-04] MEDS: diphenhydrAMINE HCL 50 MG/ML VIAL IV SCH ×5 (05:07→23:35)
[2020-01-04] MEDS: methylPREDNISolone SOD SUCC 125 MG/2ML VIAL IV SCH ×3 (05:07→18:30)
--- NOTE | 2020-01-04 07:11 | NUR ---
RN CLOSING NOTES] PT ON BED SLEEPING EASY TO WAKE UP, LIP SWELLING STILL NOTED BUT NO SIGNIFICANT CHANGES NOTED, NO SIGN OF SOB OR ANY RESPIRATORY DISTRESS NOTED, BEDSIDE MONITOR READS SINUS RHYTHM WITH 1ST DEGREE BBB, SAFETY MEASURE MAINTAINED CALL LIGHT WITHIN REACH ALL NEEDS ATTENDED WILL ENDORSED TO AM SHIFT NURSE
--- NOTE | 2020-01-04 07:15 | NUR ---
AMBULANCE DRIVER PARAMEDIC NOTES RECEIVED PATIENT AOX4 , NOT IN ACUTE DISTRESS , DENIES SOB AND DISCOMFORT AT THIS TIME , SPO2 OF 100% VIA 2LPM NC , SR 85 WITH BBB ON BEDSIDE MONITOR , FACIAL SWELLING NOTED , IV OF L HAND # 20 WITH NS @ 100ML/HR INFUSING WELL , R HAND # 20 PATENT AND INTACT SL , ALL NEEDS ATTENDED ,WILL CONTINUE TO MONITOR
[2020-01-04] MEDS: ASPIRIN 325 MG TABLET PO SCH (08:09)
[2020-01-04] MEDS: DILTIAZEM HCL CD 240 MG PO SCH (09:24)
--- NOTE | 2020-01-04 09:29 | NUR ---
WATER MAINTENANCE SUPERVISOR NOTES URINE SPECIMEN COLLECTED , LABELED AND SENT TO LAB , WILL CONTINUE TO MONITOR
[2020-01-04 11:41] LABS: APPEARANCE,URINE CLEAR (CLEAR); BILIRUBIN,URINE NEGATIVE (NEGATIVE); BLOOD, URINE NEGATIVE Ery/uL (NEGATIVE); COLOR,URINE YELLOW (YELLOW); KETONES,URINE TRACE (NEGATIVE); LEUKOCYTE ESTERASE ,URINE NEGATIVE (NEGATIVE); NITRITE, URINE NEGATIVE (NEGATIVE); PROTEIN,URINE NEGATIVE (NEGATIVE); UGLUCOSE NEGATIVE (NEGATIVE)
[2020-01-04 11:53] LABS: URINE SODIUM, RANDOM 26 mmol/l (40-220)
[2020-01-04 11:55] LABS: OSMOLALITY,URINE 319 mOS/kg (340-1090)
[2020-01-04 12:09] LABS: BACTERIA,URINE None seen /HPF (None Seen); RBC,URINE 0-1 /HPF (0-2); SQUAMOUS EPITHELIAL CELL,UR Few /HPF (None Seen)
--- NOTE | 2020-01-04 16:40 | NUR ---
BUSINESS SOLUTIONS CONSULTANT NOTES PT STABLE UPON TRANSFER NO ACUTE EVENTS NOTED , VSS , AFEBRILE , NO DISTRESS , SPO2 OF 100% VIA RA , ATTACHED TO TELE MONITOR , BELONGINGS CHECKED AND GIVEN TO PT , REPORT GIVEN TO YOLANDA RN FOR CONTINUITY OF CARE
--- NOTE | 2020-01-04 16:55 | NUR ---
ms reed received mnew transfer,female 59 y o, from icu ,awake,alert,oriented x4,not in any form of distress, respirations even and unlabored,no sob noted, lungs are clear,abdomen soft,positive bowel sounds,denies pain at this itme,came in w/ dx of angio edema of mouth,will monitor patient.
--- NOTE | 2020-01-04 18:00 | NUR ---
ms rn due meds given,tolerated well.
--- NOTE | 2020-01-04 18:50 | NUR ---
ms rn on bed,no distress noted.
--- NOTE | 2020-01-04 19:00 | NUR ---
CHIEF DIGITAL MEDIA OFFICER NOTES RECEIVED PATIENT IN BED AWAKE ALERT AND ORIENTED X4, RESPIRATIONS EVEN AND UNLABORED WITH EQUAL RISE AND FALL OF CHEST, DENIES ANY PAIN OR DISCOMFORT AT THIS TIME, IV SITE TO LEFT HAND #20 G INTACT AND PATENT, NO REDNESS, NO INFILTRATION PRESENT, IVF RUNNING ORDERED, ORIENTED TO STAFF AND CALL LIGHT AND KEPT WITHIN REACH, SAFETY PRECAUTIONS IN PLACE, LOW BED AND LOCKED, ALL NEEDS ATTENDED AT THIS TIME, WILL CONTINUE TO MONITOR. Addendum: 01/04/20 at 2241 by JACK RAMOS RN CLARIFICATION OF IV SITE RIGHT HAND
--- NOTE | 2020-01-04 19:00 | NUR ---
RN NOTES ON PHOTOGRAMMETRIC COMPILATION SPECIALIST SR 69
--- NOTE | 2020-01-04 19:00 | NUR ---
LEFT HAND #20 G INTACT AND PATENT
--- NOTE | 2020-01-04 22:10 | NUR ---
REMEDIAL MASSEUR NOTED MADE HOSPITALIST AWARE OF TROPONIN LAB RESULTS 0.209.
[2020-01-05] VITALS: BP 131/88
[2020-01-05 04:00] VITALS: BP 110/72
[2020-01-05 04:37] VITALS: BP 110/72
[2020-01-05] MEDS: diphenhydrAMINE HCL 50 MG/ML VIAL IV SCH ×2 (05:43→11:16)
[2020-01-05] MEDS: methylPREDNISolone SOD SUCC 125 MG/2ML VIAL IV SCH (05:45)
--- NOTE | 2020-01-05 06:05 | NUR ---
STERNMAN CLOSING NOTES PATIENT IN BED AWAKE ALERT AND ORIENTED X4, RESPIRATIONS EVEN AND UNLABORED WITH EQUAL RISE AND FALL OF CHEST, DENIES ANY PAIN OR DISCOMFORT AT THIS TIME, IV SITE TO LEFT HAND #20 G INTACT AND PATENT AND RIGHT HAND #20G INTACT AND PATENT, NO REDNESS, NO INFILTRATION PRESENT, IVF RUNNING ORDERED THROUGHOUT SHIFT, CALL LIGHT KEPT WITHIN REACH, SAFETY PRECAUTIONS IN PLACE, LOW BED AND LOCKED, TOILETING AND FLUIDS AND SNACK OFFERED DURING SHIFT, ALL NEEDS ATTENDED AT THIS TIME, WILL CONTINUE TO MONITOR AND ENDORSE TO NEXT SHIFT, REMAINS COMFORTABLE, NO ADVERSE REACTIONS NOTED, SWELLING NOTED TO LIP AREA.
--- NOTE | 2020-01-05 06:07 | NUR ---
FABRICATION AND LAYOUT CRAFTSMAN NOTES SUPERVISOR FUNCTIONAL TESTING SR 64
[2020-01-05 06:50] LABS: THYROID STIMULATING HORMONE 0.092 uIU/mL (0.358-3.74); URIC ACID 2.8 mg/dL (2.6-7.2)
[2020-01-05 07:01] LABS: CALCIUM, SERUM 9.1 mg/dL (8.5-10.1); CREATININE 0.7 mg/dL (0.6-1.3); MAGNESIUM 2.2 mg/dL (1.8-2.4); POTASSIUM 4.1 mmol/L (3.5-5.1)
--- NOTE | 2020-01-05 07:30 | NUR ---
BILLBOARD MECHANIC NOTES PATIENT RECEIVED IN BED RESTING COMFORTABLY, ALERT AND ORIENTED X 4. ON ROOM AIR WITH NO SIGNS OF RESPIRATORY DISTRESS, WITH EVEN NON-LABORED BREATHING, AND NO SOB NOTED AT THIS TIME. PATIENT ON COUNTER INTELLIGENCE TECHNICIAN, SINUS RHYTHM, 80'S. PATIENT SKIN WARM AND DRY TO TOUCH. IV ACCESS INTACT AND PATENT, INFUSING NORMAL SALINE AT 100ml/hr. PATIENT DENIES PAIN AND DISCOMFORT AT THIS TIME. SAFETY PRECAUTIONS IMPLEMENTED WITH BED LOCKED, BED IN THE LOWEST POSITION, BILATERAL SIDE RAILS UP, AND CALL LIGHT WITHIN EASY REACH OF PATIENT. WILL CONTINUE TO MONITOR PATIENT.
[2020-01-05 07:54] VITALS: BP 144/98
[2020-01-05] MEDS: ASPIRIN 325 MG TABLET PO SCH (08:28)
[2020-01-05 08:37] VITALS: BP 137/90
[2020-01-05] MEDS: DILTIAZEM HCL CD 240 MG PO SCH (08:37)
[2020-01-05] MEDS ORDERED: METH4TAB3 PO (10:21)
--- NOTE | 2020-01-05 12:45 | NUR ---
MS RN NOTES PATIENT LEFT UNIT ALERT AND ORIENTED X 4. ON ROOM AIR, WITH EVEN NON-LABORED BREATHING AND VITAL SIGNS WITHIN NORMAL LIMITS. PATIENT ACCOUNTED FOR BELONGINGS. CALLED PREFERRED PHARMACY, [facility], , NEW PRESCRIPTION WAS RECEIVED AND AVAILABLE FOR TICKET SELLER. PROVIDED EXIT CARE AND DISCHARGE PACKET TO PATIENT. IV ACCESS REMOVED AND APPLIED PRESSURE TO SITE, AND CATHETER TIP INTACT. ID BAND REMOVED. PATIENT LEFT UNIT IN STABLE CONDITION AND AWAITING FOR PRIVATE CAR/UBER. BUS PASS WAS PROVIDED WELL PER PATIENT REQUESTED.
== END 2020-01-05 12:45 | disposition home or self-care (01) | DRG 811 ==
LOC: ER 17:12 → ICU 20:48 → MED 01-04 16:41 → TELE 01-04 17:57 → MED 01-05 09:47
PROVIDERS: ADMIT Internal Medicine; ATTEND Internal Medicine
DX: T78.3XXA Angioneurotic edema, initial encounter (principal); E87.1 Hypo-osmolality and hyponatremia; E78.5 Hyperlipidemia, unspecified; I10 Essential (primary) hypertension; E86.1 Hypovolemia; I25.10 Atherosclerotic heart disease of native coronary artery without angina pectoris; T46.4X5A Adverse effect of angiotensin-converting-enzyme inhibitors, initial encounter; Y84.8 Other medical procedures as the cause of abnormal reaction of the patient, or of later complication, without mention of misadventure at the time of the procedure; Y92.009 Unspecified place in unspecified non-institutional (private) residence as the place of occurrence of the external cause; K70.10 Alcoholic hepatitis without ascites; I95.9 Hypotension, unspecified; F10.10 Alcohol abuse, uncomplicated; Y90.9 Presence of alcohol in blood, level not specified; I25.2 Old myocardial infarction; Z91.013 Allergy to seafood; I21.4 Non-ST elevation (NSTEMI) myocardial infarction
CPT/HCPCS: 36415; 71045-TC; 80048-TC; 80076-TC; 81000-TC; 82962-TC; 83690-TC; 83735-TC; 83935-TC; 84100-TC; 84300-TC; 84443-TC; 84484-TC; 84550-TC; 85025-TC; 85730-TC; 86850-TC; 87081-TC; G0378; J1200; J2060; J2930; J7030

== ENCOUNTER 2020-08-05 08:27 | Inpatient (IN) | payer MEDICAID, OTHER ==
[2020-08-05] VITALS (12 sets, daily range): BP systolic 102–127; BP diastolic 46–83
[~2020-08-05] VITALS: Ht 170.2 cm; Wt 90.7 kg
[~2020-08-05 08:27] MED LIST changes: +AMLO-212 PO; -AMLO5TAB9 PO; -LISI40TA4 PO; +METH4TAB3 PO
--- NOTE | 2020-08-05 08:28 | NUR ---
PT BIBRA 102 FROM HOME C/O WEAKNESS "JUANA BEEN DETOXING FROM ALCOHOL" PT IS AAOX4, NOT IN RESPIRATORY DISTRESS, HOOKED TO RIGGER, KEPT RESTED AND COMFORTABLE. WILL CONTINUE TO MONITOR.
--- NOTE | 2020-08-05 08:33 | NUR ---
AT BEDSIDE FOR EVAL.
--- NOTE | 2020-08-05 08:50 | NUR ---
ER PHLEB AT BEDSIDE FOR BLOOD DRAW.
[2020-08-05 09:19] LABS: ALANINE AMINOTRANSFERASE 171 U/L (12-78); ALBUMIN 3.7 g/dL (3.4-5.0); ALCOHOL, BLOOD < 3 mg/dL (0-0); ALKALINE PHOSPHATASE 152 U/L (46-116); ASPARTATE AMINOTRANSFERASE 170 U/L (15-37); BILIRUBIN,DIRECT 0.7 mg/dL (0.0-0.2); BILIRUBIN,TOTAL 1.4 mg/dL (0.2-1.0); CALCIUM, SERUM 9.7 mg/dL (8.5-10.1); GLUCOSE 153 mg/dL (74-106); TOTAL PROTEIN, SERUM 8.7 g/dL (6.4-8.2); UREA NITROGEN, BLOOD 14 mg/dL (7-18)
[2020-08-05 09:22] LABS: POTASSIUM 1.6 mmol/L (3.5-5.1); SODIUM SERUM 116 mmol/L (136-145)
[2020-08-05 09:23] LABS: ACETAMINOPHEN < 10 ug/ml (10-30); CARBON DIOXIDE 42 mmol/L (21-32); CHLORIDE 70 mmol/L (98-107)
[2020-08-05] MEDS ORDERED: IV NS 0.9% 100 ML IV ONE (09:30)
[2020-08-05] MEDS ORDERED: Magnesium 1GM/D5W 100ML PREMIX 200 ML IV ONE (09:38)
[2020-08-05] MEDS ORDERED: POTASSIUM CL. PREMIX PERIPHER. 200 ML ONE (09:38)
[2020-08-05] MEDS: Magnesium 1GM/D5W 100ML PREMIX 100 ML IV SCH ×2 (09:41→10:39)
[2020-08-05] MEDS: POTASSIUM CL. PREMIX PERIPHER. 50 ML IV SCH ×10 (09:42→23:54)
[2020-08-05] MEDS ORDERED: IV NS 0.9% 1,000 ML IV ONE (10:00)
[2020-08-05 10:12] LABS: ABG BASE EXCESS 17.5 mmol/L; ABG OXYGEN SATURATION 90.7 % (92.0-98.5); ABG PCO2 45.1 mmHg (35.0-45.0); ABG PH 7.588 (7.350-7.450); ABG PO2 59.8 mmHg (75.0-100.0); AaDO2 35.9 mmHg; COHb 0.3 % (0.5-1.5); MetHb 0.3 % (0.0-1.5); O2Hb 90.2 % (94.0-97.0); SITE, ABG Right Radial; VENT MODE, BG room air
--- NOTE | 2020-08-05 10:28 | NUR ---
Faxed facesheet to Leonid ([facility])
[2020-08-05 10:50] LABS: BASOPHILS % (AUTO) 0.3 % (0.0-2.0); EOSINOPHILS % (AUTO) 0.1 % (0.0-6.0); HEMATOCRIT 50 % (33-45); HEMOGLOBIN 18.4 g/dL (11.5-14.8); LYMPHOCYTES # (AUTO) 1.5 /CMM (0.8-4.8); LYMPHOCYTES % (AUTO) 17.8 % (20.0-44.0); MEAN CORPUSCULAR HGB CONC 37 g/dl (31.0-36.0); MEAN CORPUSCULAR VOLUME 88 fL (82-100); MONOCYTES # (AUTO) 1.7 /CMM (0.1-1.30); MONOCYTES % (AUTO) 20.3 % (2.0-12.0); NEUTROPHILS # (AUTO) 5.3 /CMM (1.8-8.9); NEUTROPHILS % (AUTO) 61.5 % (43.0-81.0); PLATELET COUNT (AUTO) 219 /CMM (150-450); RED BLOOD CELL COUNT(AUTO) 5.71 MIL/uL (4.0-5.2); WHITE BLOOD COUNT (AUTO) 8.6 K/uL (4.3-11.0)
--- NOTE | 2020-08-05 11:05 | NUR ---
[facility] PAGED. AWAITING HOSPITALIST CALL BACK.
--- NOTE | 2020-08-05 11:13 | NUR ---
room 113
[2020-08-05 11:16] LABS: BILIRUBIN,URINE Negative (NEGATIVE); COLOR,URINE YELLOW (YELLOW); LEUKOCYTE ESTERASE ,URINE Small (NEGATIVE); NITRITE, URINE Negative (NEGATIVE); PROTEIN,URINE Negative (NEGATIVE); UGLUCOSE Negative (NEGATIVE)
[2020-08-05 11:33] LABS: BACTERIA,URINE Rare /HPF (None Seen); SQUAMOUS EPITHELIAL CELL,UR 0-2 /HPF (None Seen)
[2020-08-05 11:44] LABS: LYMPHOCYTES % (MANUAL) 19 % (16-48); MONOCYTES % (MANUAL) 26 % (0-11.0); NEUTROPHILS % (MANUAL) 55 (42-76)
--- NOTE | 2020-08-05 11:52 | NUR ---
report given to Anton LEWIS for [place]
--- NOTE | 2020-08-05 11:55 | NUR ---
wheeled patient via gurney accompanied by RN and emt in no distress. Anton RN at bedside to assume care.
--- NOTE | 2020-08-05 12:00 | NUR ---
PATIENT TRANSFERRED TO ICU FOR UPGRADED CARE PER MD. BEDSIDE REPORT GIVEN TO NURSE AT BEDSIDE.
--- NOTE | 2020-08-05 12:28 | NUR ---
SS Consult: SS Consult requested for ETOH. SW met with pt. bedside in ED. The pt. appears well-groomed and is receptive to meeting with SW. The pt. is alert & oriented x 4. The pt. does not make eye contact and is lying in bed with eyes closed. Pt. stated, I feel weak. SW completed ETOH intervention with pt. Pt. stated that she has been drinking for about 3 years. Pt. stated she drinks beer & Vodka daily, pt. could not specify amount. Pt. stated that drinking is a problem in her life. Per pt., she stopped drinking about 1 week ago. Pt. expressed wanting to stay sober and stop drinking. SW offered pt. alcohol rehabilitation services. Pt. stated that she is interested in outpatient services as she would like to continue residing in her home [[id number] [address] [facility] [address]]. Per pt. she lives alone. SW explored pt.s support system. Per pt., Derrick Berg [phone] is of support to her. Pt. stated she is also in communication with her family. Pt. denies receiving any financial assistance. Pt. stated that she has not been working as of late due to Coronavirus pandemic and feel that might have contributed to her drinking problem. Pt. denies SI/HI and denies hallucination. Pt. denies any mental health Hx. Plan: DIONISIO referred pt. to [facility] [phone] and emailed clinicals to Danisha Saunders, [email or web address] and [email or web address]. SW will follow up as needed. SW provide pt. with list of Addiction Resources including: [facility] Substance Abuse Helpline([facility])-[facility] Outpatient treatment, residential treatment, recovery support for youth and adults [facility] www.Cell[employer]us.Pencil You In [place] Teen programs for drug/alcohol education and support [place]. Program for adults, sliding scale provides support and education [employer] www.[employer].org [place]; Outpatient/residential treatment programs; transition to sober living [facility] www.cri-help.org [place]; Outpatient and residential treatment programs; transition to sober living [facility] [place]; Outpatient education and supportive programs for teens and adults [facility] www.[facility].org [place]; Residential treatment and work program for females only [employer] www.Zipideepreble.[employer] [place]: Outpatient/residential treatment program for teens and young adults [facility] www.[facility].org [place] [facility], inpatient, outpatient for adults and youth [facility], [facility]. [facility]; Outpatient programs and referrals to community residential programs. Alcoholics Anonymous -[facility] information and meeting and schedules www.aa-intergroup.org Sarabjit https://al-tanja.org/ [place] support groups for family of alcoholics [facility]: [facility] [phone] [place], [place] [facility]
[2020-08-05] MEDS ORDERED: ZOLPIDEM TARTRATE 5 MG TABLET PO PRN (12:30)
[2020-08-05] MEDS ORDERED: MAGNESIUM HYDROXIDE 30 ML UDC PO PRN (12:30)
[2020-08-05] MEDS ORDERED: MAG HYDROX/AL HYDROX/SIMETH 30 ML UDC PO PRN (12:30)
[2020-08-05] MEDS ORDERED: HYDROCODONE/APAP 5/325MG TABLET PO PRN (12:30)
[2020-08-05] MEDS ORDERED: ONDANSETRON HCL/PF 4 MG/2 ML VIAL IVP PRN (12:30)
--- NOTE | 2020-08-05 12:45 | NUR ---
COMMERCIAL REPORTER RECEIVED PT FROM [facility] BY RADHA WITH MONITOR. REPORT RECEIVED. PT AWAKE FOLLOWING COMMANDS, MOVING ALL EXTREMITIES. PT REPORTED NOT FEELING WELL AND HAD STOPPED DRINKING ETOH X 1 WK. PT WAS SENT TO ICU FOR HYPOKALEMIA AND HYPOMAGNESEMIA. KCL 10 MEQ BAG #3 INFUSING (4 BAGS ORDERED). PT HAD RECEIVED MAGNESIUM IVPB IN ER.
[2020-08-05] MEDS: ENOXAPARIN SODIUM 40 MG/0.4 ML DISP.SYRIN SQ SCH (13:23)
[2020-08-05] MEDS ORDERED: POTASSIUM CHLORIDE 20 MEQ TAB.PRT.SR PO ONE (15:30)
--- NOTE | 2020-08-05 15:30 | NUR ---
PATIENT RECEIVED IN BED ON ROOM AIR, O2 SAT 90%, NO RESPIRATORY DISTRESS. PATIENT ON MONITOR SHOWING SR 70-80s. PATIENT PREVIOUSLY RECEIVED 4 BAGS POTASSIUM IV, TO RECEIVE 80 MEQ POTASSIUM PO. MG REPORTED TO HAVE BEEN REPLACED IN ER PRIOR TO ADMISSION. IV SITE INTACT AND FLUSHED WELL. NO SIGNS OF INFECTION OR INFILTRATION. ALL SAFETY MEASURES IN PLACE. WILL CONTINUE TO MONITOR CLOSELY
--- NOTE | 2020-08-05 16:30 | NUR ---
CHIEF SOLUTION ARCHITECT LA NENA NOTIFIED OF POTASSIUM 1.7 RESULT. BMP Q4H ORDERS RECEIVED, MORE POTASSIUM IV ORDERED
[2020-08-05 16:56] LABS: CREATININE 0.9 mg/dL (0.6-1.3)
[2020-08-05 16:58] LABS: POTASSIUM 1.7 mmol/L (3.5-5.1)
[2020-08-05 17:01] LABS: MAGNESIUM 3.5 mg/dL (1.8-2.4)
[2020-08-05] MEDS: CEFTRIAXONE 1 G in IV D5W 50 ML IV SCH (17:30)
[2020-08-05 18:17] LABS: CALCIUM, SERUM 8.8 mg/dL (8.5-10.1); CREATININE 0.8 mg/dL (0.6-1.3)
[2020-08-05 18:21] LABS: POTASSIUM 2.3 mmol/L (3.5-5.1)
[2020-08-05] MEDS: Potassium Chloride 40 MEQ in IV NS 0.9% 1,000 ML IV SCH (18:28)
[2020-08-05] MEDS: AZITHROMYCIN 500 MG in IV D5W 250 ML IV SCH (18:43)
--- NOTE | 2020-08-05 18:45 | NUR ---
KAROLYN DEUTSCH NOTIFIED OF CRITICAL RESULT K 2.3. K CURRENTLY BEING REPLACED DIRECTED
--- NOTE | 2020-08-05 19:26 | NUR ---
PATIENT REMAINS IN BED, ASLEEP BUT EASILY AROUSABLE ON ROOM AIR. PATIENT CURRENTLY RECEIVING 2ND BAG OF 8 BAGS POTASSIUM, ENDORSED TO ONCOMING RN. ALL SAFETY MEASURES IN PLACE. PATIENT IS PENDING MIDLINE INSERTION. ALL NEEDS ENDORSED TO ONCOMING RN FOR TERESITA
--- NOTE | 2020-08-05 19:40 | NUR ---
METAL RIVETER NOTES, PATIENT RECEIVED IN BED, A/O X3 ABLE TO VERBALIZE NEEDS AND CONCERNS, ON ROOM AIR, WITH O2 SAT >92%, NO SOB/ RESPIRATORY DISTRESS NOTED, SR IN TELE MONITOR WITH HR WING SR 8O AT THIS TIME, PIV LINE IN RAC /LFA PATENT AND INTACT , POTASSIUM IV INFUSING AT THIS TIME BAG X2, AND IVF KCL INFUSING AT 150ML/HR, NO SIGNS OF INFECTION OR INFILTRATION NOTED, AWAITING FIR MIDLINE INSERTION, ALL SAFETY MEASURES IN PLACE, CALL LIGHT W/I REACH, WILL CONTINUE TO MONITOR CLOSELY.
[2020-08-05 21:28] LABS: CALCIUM, SERUM 8.9 mg/dL (8.5-10.1); CREATININE 0.8 mg/dL (0.6-1.3)
[2020-08-05 21:30] LABS: POTASSIUM 2.5 mmol/L (3.5-5.1)
[2020-08-05] MEDS ORDERED: DESMOPRESSIN 20 MCG in IV NS 0.9% 50 ML IV ONE (23:00)
[2020-08-05] MEDS ORDERED: DESMOPRESSIN 4 MCG/ML AMPUL ONE (23:00)
[2020-08-06] VITALS (15 sets, daily range): BP systolic 92–147; BP diastolic 56–95
[2020-08-06] MEDS: POTASSIUM CL. PREMIX PERIPHER. 50 ML IV SCH ×2 (01:05→02:17)
[2020-08-06 01:31] LABS: CALCIUM, SERUM 8.5 mg/dL (8.5-10.1); CREATININE 0.8 mg/dL (0.6-1.3); MAGNESIUM 2.9 mg/dL (1.8-2.4); PHOSPHORUS 1.6 mg/dL (2.5-4.9); POTASSIUM 3.3 mmol/L (3.5-5.1)
[2020-08-06] MEDS: Potassium Chloride 40 MEQ in IV NS 0.9% 1,000 ML IV SCH ×2 (01:45→08:25)
[2020-08-06 05:20] LABS: BASOPHILS # (AUTO) 0.1 /CMM (0.0-0.2); BASOPHILS % (AUTO) 0.8 % (0.0-2.0); EOSINOPHILS % (AUTO) 0.5 % (0.0-6.0); HEMATOCRIT 40 % (33-45); HEMOGLOBIN 14.9 g/dL (11.5-14.8); LYMPHOCYTES # (AUTO) 2.4 /CMM (0.8-4.8); MEAN CORPUSCULAR HGB CONC 37 g/dl (31.0-36.0); MEAN CORPUSCULAR VOLUME 88 fL (82-100); MONOCYTES # (AUTO) 1.6 /CMM (0.1-1.30); MONOCYTES % (AUTO) 20.4 % (2.0-12.0); NEUTROPHILS # (AUTO) 3.7 /CMM (1.8-8.9); NEUTROPHILS % (AUTO) 47.3 % (43.0-81.0); PLATELET COUNT (AUTO) 207 /CMM (150-450); RED BLOOD CELL COUNT(AUTO) 4.57 MIL/uL (4.0-5.2); WHITE BLOOD COUNT (AUTO) 7.8 K/uL (4.3-11.0)
[2020-08-06 05:28] LABS: CALCIUM, SERUM 8.5 mg/dL (8.5-10.1); CREATININE 0.7 mg/dL (0.6-1.3)
[2020-08-06 05:34] LABS: CHOLESTEROL 115 mg/dL (<200); HDL CHOLESTEROL 51 mg/dL (40-60); LDL 48 mg/dL (0-99); TRIGLYCERIDES 40 mg/dL (30-150)
[2020-08-06 05:51] LABS: LYMPHOCYTES % (MANUAL) 29 % (16-48); MONOCYTES % (MANUAL) 14 % (0-11.0); NEUTROPHILS % (MANUAL) 57 (42-76)
--- NOTE | 2020-08-06 07:10 | NUR ---
RN INITIAL NOTES RECEIVED PT A/OX4, ON ROOM AIR. NO SOB NOTED. DENIES ANY PAIN. IV LINE IN PLACE. IVF INFUSING. PT CONTINENT, USES BEDSIDE COMMODE. SKIN INTACT. CALL LIGHT WITHIN REACH. WILL CLOSELY MONITOR
--- NOTE | 2020-08-06 07:18 | NUR ---
RN NOTES, PATIENT AWAKE D IN BED, A/O X3 ABLE TO VERBALIZE NEEDS AND CONCERNS, ON ROOM AIR, WITH O2 SAT >92-97%, NO SOB/ RESPIRATORY DISTRESS NOTED, POTASSIUM IV REPLACED AND THIS MORNING LAST POTASSIUM LEVEL 4.0, CONTINUE ON IVF KCL INFUSING AT 150ML/HR, NO SIGNS OF INFECTION OR INFILTRATION NOTED, NO SIGNIFICANT CHANGE IN CONDITION, ALL SAFETY MEASURES IN PLACE, CALL LIGHT W/I REACH, WILL ENDORSE CONTINUITY OF CARE TO ONCOMING NURSE.
[2020-08-06] MEDS ORDERED: NEUTRA PHOS 1 POWD.PACKET NG ONE (09:30)
[2020-08-06 11:25] LABS: CALCIUM, SERUM 8.3 mg/dL (8.5-10.1); CREATININE 0.8 mg/dL (0.6-1.3); POTASSIUM 3.8 mmol/L (3.5-5.1)
[2020-08-06] MEDS: ENOXAPARIN SODIUM 40 MG/0.4 ML DISP.SYRIN SQ SCH (11:31)
--- NOTE | 2020-08-06 11:53 | NUR ---
RN NOTES PT TRANSFERRED TO ROOM 307-2. PT A/OX4, ON ROOM AIR. NO RESPIRATORY DISTRESS NOTED. DENIES ANY PAIN. IV LINE IN PLACE. IN STABLE CONDITION.
--- NOTE | 2020-08-06 12:30 | NUR ---
[facility] Referral: DIONISIO completed Hospital Pre-Screen and faxed it back to [facility] Patient Navigator Jose Carlos Peña FAX: [phone] TEL: [phone] with facesheet, Medication list per TTC request. DIONISIO will follow up as needed.
--- NOTE | 2020-08-06 12:35 | NUR ---
SS Note: SW updated by JOSHUA Alexander from ICU that pt. was downgraded to MEDSURG. SW updated MS3 charge nurse, Romie regarding referral to TTC for Outpatient Tx due to Alcohol Abuse. SW will transfer call for pt. to be interviewed by TTC possibly later today. SW will be available as needed.
--- NOTE | 2020-08-06 13:00 | NUR ---
Patient received from ICU in stable condition. On room air and no s/s of respiratory distress noted. No c/o pain or discomfort.
[2020-08-06 15:59] LABS: CALCIUM, SERUM 8.5 mg/dL (8.5-10.1); CREATININE 0.7 mg/dL (0.6-1.3); POTASSIUM 3.3 mmol/L (3.5-5.1)
[2020-08-06] MEDS: CEFTRIAXONE 1 G in IV D5W 50 ML IV SCH (17:13)
[2020-08-06 18:21] LABS: CALCIUM, SERUM 8.5 mg/dL (8.5-10.1); CREATININE 0.7 mg/dL (0.6-1.3); POTASSIUM 3.4 mmol/L (3.5-5.1)
[2020-08-06] MEDS: AZITHROMYCIN 500 MG in IV D5W 250 ML IV SCH (18:55)
--- NOTE | 2020-08-06 19:36 | NUR ---
MS closing notes Patient is alert and oriented. On room air saturation of 100%. No c/o pain or discomfort. Patient teaching done regarding safety and fall precautions. Endorsed to next shift for follow up. Bed is in lowest and locked position
--- NOTE | 2020-08-06 20:04 | NUR ---
RN NOTES PATIENT AWAKE, A/OX4. ABLE TO MAKE NEEDS KNOWN. NO SOB OR ANY RESPIRATORY DISTRESS. ON ROOM AIR, O2 SAT WNL. DENIES ANY PAIN OR DISCOMFORT. WITH LEFT FOREARM #20 PATENT AND INTACT. ALL NEEDS ANTICIPATED. SAFETY MEASURES IN PLACE. CALL LIGHT WITHIN REACH. WILL CONTINUE TO MONITOR.
[2020-08-06 22:04] LABS: CALCIUM, SERUM 8.2 mg/dL (8.5-10.1); CREATININE 0.6 mg/dL (0.6-1.3); POTASSIUM 3.1 mmol/L (3.5-5.1)
--- NOTE | 2020-08-07 02:53 | NUR ---
NOTIFIED KELLEE VALENCIA POTASSIUM LVL 3.1 TRENDING DOWN WITH NEW ORDER FOR KCL 40MEQ PO ONCE NOTED AND CARRIED OUT.
[2020-08-07] MEDS ORDERED: POTASSIUM CHLORIDE 20 MEQ TAB.PRT.SR PO ONE (03:00)
[2020-08-07 06:38] LABS: BASOPHILS # (AUTO) 0.1 /CMM (0.0-0.2); BASOPHILS % (AUTO) 1.8 % (0.0-2.0); EOSINOPHILS % (AUTO) 2.3 % (0.0-6.0); HEMATOCRIT 41 % (33-45); LYMPHOCYTES # (AUTO) 2.5 /CMM (0.8-4.8); LYMPHOCYTES % (AUTO) 34.1 % (20.0-44.0); MEAN CORPUSCULAR HGB CONC 36 g/dl (31.0-36.0); MEAN CORPUSCULAR VOLUME 89 fL (82-100); MONOCYTES # (AUTO) 1.1 /CMM (0.1-1.30); MONOCYTES % (AUTO) 14.9 % (2.0-12.0); NEUTROPHILS # (AUTO) 3.4 /CMM (1.8-8.9); NEUTROPHILS % (AUTO) 46.9 % (43.0-81.0); PLATELET COUNT (AUTO) 231 /CMM (150-450); RED BLOOD CELL COUNT(AUTO) 4.61 MIL/uL (4.0-5.2); WHITE BLOOD COUNT (AUTO) 7.2 K/uL (4.3-11.0)
[2020-08-07 07:01] LABS: CALCIUM, SERUM 8.6 mg/dL (8.5-10.1); CREATININE 0.6 mg/dL (0.6-1.3); MAGNESIUM 2.3 mg/dL (1.8-2.4); PHOSPHORUS 2.1 mg/dL (2.5-4.9); POTASSIUM 3.3 mmol/L (3.5-5.1)
--- NOTE | 2020-08-07 07:02 | NUR ---
RN NOTE PATIENT AWAKE, A/OX4. ABLE TO MAKE NEEDS KNOWN. NO SOB. ON ROOM AIR, O2 SAT WNL. DENIES ANY PAIN OR DISCOMFORT. WITH LEFT FOREARM #20 PATENT AND INTACT. DUE MEDS GIVEN ORDERED AND TOLERATED WELL. SAFETY MEASURES IN PLACE. CALL LIGHT WITHIN REACH. WILL ENDORSE TO ONCOMING SHIFT.
[2020-08-07 08:00] VITALS: BP 139/85
--- NOTE | 2020-08-07 08:21 | NUR ---
MS RN OPENING NOTES RECEIVED PATIENT IN BED, AWAKE, A/O X4. PATIENT ON ROOM AIR; BREATHING EVEN AND UNLABORED. NO COMPLAINS OF PAIN AT THIS TIME. LFA IV ACCESS PRESENT AND INTACT. SAFETY PRECAUTIONS IN PLACE; BED IN LOW POSITION AND LOCKED, RAILS UP X2, CALL LIGHT WITHIN REACH. WILL CONTINUE TO MONITOR PATIENT.
[2020-08-07] MEDS ORDERED: POTASSIUM CHLORIDE 20 MEQ TAB.PRT.SR PO SCH (09:30)
[2020-08-07] MEDS ORDERED: K PHOS NEUTRAL 250 MG TABLET PO ONE (11:30)
[2020-08-07] MEDS: ENOXAPARIN SODIUM 40 MG/0.4 ML DISP.SYRIN SQ SCH (12:26)
--- NOTE | 2020-08-07 15:31 | NUR ---
[facility] Follow-up: DIONISIO called [facility] Patient Navigator, Jose Carlos Yousef to get update regarding ALcohol Abuse outpatient Tx. for this pt. DIONISIO faxed Hospital pre-screen to Jose Carlos on 08/06/2020 and no update yte. DIONISIO left voicemail with call back number. DIONISIO discussed with charge nurse, Chantal who stated this patient potentially to be discharged 08/08/2020. Noted. DIONISIO will be available as needed.
[2020-08-07 16:00] VITALS: BP 113/77
[2020-08-07] MEDS: CEFTRIAXONE 1 G in IV D5W 50 ML IV SCH (16:50)
[2020-08-07] MEDS: AZITHROMYCIN 500 MG in IV D5W 250 ML IV SCH (17:35)
--- NOTE | 2020-08-07 18:51 | NUR ---
MS RN CLOSING NOTES PATIENT REMAINS IN BED, AWAKE, A/O X4. PATIENT ON ROOM AIR; BREATHING EVEN AND UNLABORED THROUGHOUT THE DAY. NO COMPLAINS OF PAIN. IV ACCESS PRESENT AND INTACT. ALL NEEDS ATTENDED THROUGHOUT THE DAY. SAFETY PRECAUTIONS IN PLACE; BED IN LOW POSITION AND LOCKED, RAILS UP X2, CALL LIGHT WITHIN REACH. WILL ENDORSE TO ACCREDITATION MANAGER NURSE.
--- NOTE | 2020-08-07 19:30 | NUR ---
RN opening notes Received Pt from morning nurse. Pt is sitting in bed comfortably eating dinner. Pt is alert and oriented X4. Respiration is normal in room air. No SOB. No S/S of distress noted. Safety precautions is maintained. Bed at low position, brakes locked, side rails upX2, hob elevated and call light is within reach. Will continue to monitor.
[2020-08-07 20:00] VITALS: BP 119/63
--- NOTE | 2020-08-07 20:00 | NUR ---
RN notes Inserted new IV site at R forearm # 22 with good blood returned. New IV site is clean,intact and flushes well. Pt tolerated activity well.
[2020-08-08 05:51] LABS: BASOPHILS % (AUTO) 0.5 % (0.0-2.0); EOSINOPHILS % (AUTO) 2.3 % (0.0-6.0); HEMATOCRIT 44 % (33-45); HEMOGLOBIN 15.6 g/dL (11.5-14.8); LYMPHOCYTES # (AUTO) 2.6 /CMM (0.8-4.8); LYMPHOCYTES % (AUTO) 37.8 % (20.0-44.0); MEAN CORPUSCULAR HGB CONC 36 g/dl (31.0-36.0); MEAN CORPUSCULAR VOLUME 91 fL (82-100); MONOCYTES % (AUTO) 14.9 % (2.0-12.0); NEUTROPHILS # (AUTO) 3.1 /CMM (1.8-8.9); NEUTROPHILS % (AUTO) 44.5 % (43.0-81.0); PLATELET COUNT (AUTO) 264 /CMM (150-450); RED BLOOD CELL COUNT(AUTO) 4.77 MIL/uL (4.0-5.2)
[2020-08-08 06:08] LABS: CALCIUM, SERUM 9.5 mg/dL (8.5-10.1); CREATININE 0.7 mg/dL (0.6-1.3); MAGNESIUM 2.4 mg/dL (1.8-2.4); PHOSPHORUS 2.4 mg/dL (2.5-4.9); POTASSIUM 3.6 mmol/L (3.5-5.1)
[2020-08-08 06:17] LABS: ALBUMIN 3.4 g/dL (3.4-5.0); BILIRUBIN,DIRECT 0.3 mg/dL (0.0-0.2); BILIRUBIN,TOTAL 0.5 mg/dL (0.2-1.0); TOTAL PROTEIN, SERUM 7.6 g/dL (6.4-8.2)
--- NOTE | 2020-08-08 06:59 | NUR ---
RN closing notes Pt is sitting in bed comfortably watching TV. Pt is alert and oriented X4. Respiration is normal in room air. No SOB. No S/S of distress noted. VS is stable. Afebrile. Kept Pt clean, dry and comfortable. All needs met and attended. Safety precautions is maintained. Bed at low position, brakes locked, side rails upX2, hob elevated and call light is within reach. Will endorse to morning nurse for TERESITA.
--- NOTE | 2020-08-08 07:40 | NUR ---
MS RN RECEIVED ON BED, AWAKE,ALERT,ORIENTED X4,NOT IN ANY FORM OF DISTRESS, RESPIRATIONS EVEN AND UNLABORED,NO SOB NOTED, LUNGS ARE DIMINISHED,ABDOMEN SOFT,POSITIVE BOWEL SOUNDS,DENIES PAIN AT THIS TIME,ALL NEEDS ATTENDED.
[2020-08-08 07:59] VITALS: BP 137/92
--- NOTE | 2020-08-08 08:30 | NUR ---
MS LEWIS BREAKFAST SERVED,DUE MEDS GIVEN,TOLERATED WELL.
[2020-08-08] MEDS: ASPIRIN 81 MG TAB.CHEW PO SCH (09:15)
[2020-08-08] MEDS: ATORVASTATIN 40 MG TABLET PO SCH (09:15)
[2020-08-08] MEDS: AMLODIPINE BESYLATE 5 MG TABLET PO SCH (09:16)
[2020-08-08] MEDS ORDERED: K PHOS NEUTRAL 250 MG TABLET PO ONE (10:30)
--- NOTE | 2020-08-08 10:30 | NUR ---
MS LEWIS WAS SEEN BY PT AND QUYNH W/ ORDERS MADE AND CARRIED OUT.
--- NOTE | 2020-08-08 11:00 | NUR ---
MS RN WAS SEEN BY NEPHRO DRAPERY HAND W/ ORDERS MADE AND CARRIED OUT.
--- NOTE | 2020-08-08 11:59 | NUR ---
MS RN ON BED, NO DISTRESS NOTED,ALL NEEDS ATTENDED.
[2020-08-08] MEDS: ENOXAPARIN SODIUM 40 MG/0.4 ML DISP.SYRIN SQ SCH (13:15)
[2020-08-08] MEDS: ACETAMINOPHEN 325 MG TABLET PO PRN ×2 (15:44→21:20)
[2020-08-08] MEDS: CEFTRIAXONE 1 G in IV D5W 50 ML IV SCH (17:18)
[2020-08-08] MEDS ORDERED: AZITHROMYCIN 250 MG TABLET PO SCH (18:00)
--- NOTE | 2020-08-08 19:30 | NUR ---
MS RN NOTES RECEIVED ON BED A/O X4,ABLE TO VERBALIZED NEEDS,SALINE LOCK RIGHT FOREARM INTACT AND PATENT.NOT IN ANY FORM OF DISTRESS,DENIES PAIN DISCOMFORTS.CALL LIGHT IN REACH,NEEDS ANTICIPATED.
[2020-08-08 20:00] VITALS: BP 130/90
[2020-08-08 20:29] VITALS: BP 130/90
--- NOTE | 2020-08-08 21:20 | NUR ---
MS RN NOTES C/O LOWER BACK PAIN 3/10 ON PAIN SCALE,TYLENOL 650MG PO GIVEN PER PATIENT REQUEST.
[2020-08-09 06:14] LABS: CALCIUM, SERUM 9.3 mg/dL (8.5-10.1); CREATININE 0.7 mg/dL (0.6-1.3); PHOSPHORUS 3.8 mg/dL (2.5-4.9); POTASSIUM 3.6 mmol/L (3.5-5.1)
--- NOTE | 2020-08-09 06:40 | NUR ---
MS RN NOTES ON BED SLEEPING,NO SIGNIFICANT CHANGE IN STATUS,LOWER BACK PAIN IMPROVED WITH TYLENOL.CALL LIGHT IN REACH,NEEDS ATTENDED.
--- NOTE | 2020-08-09 07:36 | NUR ---
MS RN OPENING NOTE PATIENT IS IN BED RESTING COMFORTABLY. PATIENT IS ON ROOM AIR TOLERATING WELL. TOLERATING WELL, NO SOB NOTED. PATIENT IS A LITTLE CONFUSED AT THE MOMENT. SAFETY PRECAUTIONS ARE ON. BED IN THE LOWEST POSITION, SIDE RAILS ARE UP, CALL LIGHT WITHIN REACH. WILL CONTINUE TO MONITOR CLOSELY THROUGHOUT THE SHIFT.
[2020-08-09 08:00] VITALS: BP 132/92
[2020-08-09 08:49] VITALS: BP 132/92
[2020-08-09] MEDS: ATORVASTATIN 40 MG TABLET PO SCH (08:49)
[2020-08-09] MEDS: AMLODIPINE BESYLATE 5 MG TABLET PO SCH (08:49)
[2020-08-09] MEDS: ASPIRIN 81 MG TAB.CHEW PO SCH (08:49)
--- NOTE | 2020-08-09 13:10 | NUR ---
MS BROADCAST PROGRAM DIRECTOR PATIENT IS IN NO ACUTE DISTRESS. PATIENT IS MEDICALLY STABLE TO BE DISCHARGED. PATIENT IS ON ROOM AIR TOLERATING WELL. NO SOB NOTED. PATIENTS NEEDS WERE ADDRESSED DURING PATIENTS STAY. DISCHARGE INSTRUCTIONS WERE GIVEN. PATIENT VERBALIZED UNDERSTANDING. PATIENT HAS NO SKIN BREAKDOWN NOTED. PATIENTS CHECK LIST IS SIGNED. IV LINE AND ID BAND REMOVED. PATIENT WAS CALLED A [facility], PATIENT OR FAMILY HAS NO TRANSPORTATION. PATIENT LEFT VIA WHEELCHAIR. MD IS AWARE OF THE DISCHARGE.
== END 2020-08-09 13:00 | disposition home or self-care (01) | DRG 426 ==
LOC: ER 08:27 → TELE1 11:47 → ICU 12:24 → MED 08-06 13:34
PROVIDERS: ADMIT Nurse Practitioner Family; ATTEND Nurse Practitioner Acute Care
DX: E87.1 Hypo-osmolality and hyponatremia (principal); E87.6 Hypokalemia; I10 Essential (primary) hypertension; E86.0 Dehydration; E78.5 Hyperlipidemia, unspecified; E87.3 Alkalosis; D75.1 Secondary polycythemia; F10.10 Alcohol abuse, uncomplicated; I25.2 Old myocardial infarction; Z20.822 Contact with and (suspected) exposure to COVID-19; Z91.013 Allergy to seafood; J98.11 Atelectasis; J15.9 Unspecified bacterial pneumonia; Y90.0 Blood alcohol level of less than 20 mg/100 ml; E87.8 Other disorders of electrolyte and fluid balance, not elsewhere classified; R74.01 Elevation of levels of liver transaminase levels
CPT/HCPCS: 36415; 36600; 71045-TC; 80048-TC; 80061-TC; 80076-TC; 81001; 82803-TC; 83735-TC; 84100-TC; 85025-TC; 87040-TC; 87081-TC; 87086-TC; 97112-TC; 97116-TC; 97530-TC; G0378; G0480; J0456; J0696; J1650; J2597; J3475; J3480; J7030; J7050; J7060

== ENCOUNTER 2021-01-02 10:06 | Emergency (ER) | payer MEDICAID, OTHER ==
[~2021-01-02] VITALS: Ht 170.2 cm; Wt 81.6 kg
[~2021-01-02 10:06] MED LIST changes: -HYDR25TA4 PO; -MAGN400T8 PO; -METH4TAB3 PO; -THIA100T88 PO
--- NOTE | 2021-01-02 10:15 | NUR ---
TO ER BED 2, FEELING WEAK, NO APPETITE, NO ENERGY, COMING OFF ALCOHOL, LAST DRINK 12HRS
--- NOTE | 2021-01-02 10:16 | NUR ---
AT BED SIDE
--- NOTE | 2021-01-02 10:20 | NUR ---
SALINE LOCK ESTABLISHED, BLOOD DRAWN AND SENT TO LAB
[2021-01-02] MEDS ORDERED: ONDANSETRON HCL/PF 4 MG/2 ML VIAL ONE (10:24)
[2021-01-02 10:40] LABS: BASOPHILS # (AUTO) 0.1 K/uL (0.0-0.2); BASOPHILS % (AUTO) 1.3 % (0.0-2.0); EOSINOPHILS % (AUTO) 0.6 % (0.0-6.0); HEMATOCRIT 42 % (33-45); HEMOGLOBIN 14.9 g/dL (11.5-14.8); LYMPHOCYTES # (AUTO) 1.7 K/uL (0.8-4.8); LYMPHOCYTES % (AUTO) 31.4 % (20.0-44.0); MEAN CORPUSCULAR HGB CONC 35 g/dl (31.0-36.0); MEAN CORPUSCULAR VOLUME 91 fL (82-100); MONOCYTES # (AUTO) 0.7 K/uL (0.1-1.30); MONOCYTES % (AUTO) 13.9 % (2.0-12.0); NEUTROPHILS # (AUTO) 2.8 K/uL (1.8-8.9); NEUTROPHILS % (AUTO) 52.8 % (43.0-81.0); PLATELET COUNT (AUTO) 106 K/uL (150-450); RED BLOOD CELL COUNT(AUTO) 4.64 MIL/uL (4.0-5.2); WHITE BLOOD COUNT (AUTO) 5.3 K/uL (4.3-11.0)
[2021-01-02] MEDS: IV NS 0.9% 1,000 ML BAG IV ONE (10:40)
[2021-01-02] MEDS: ONDANSETRON HCL/PF 4 MG/2 ML VIAL IVP ONE (10:41)
--- NOTE | 2021-01-02 10:47 | NUR ---
URINE COLLECTED AND SENT TO LAB
[2021-01-02 10:53] LABS: BILIRUBIN,URINE SMALL (NEGATIVE); COLOR,URINE YELLOW (YELLOW); LEUKOCYTE ESTERASE ,URINE Small (NEGATIVE); NITRITE, URINE Negative (NEGATIVE); PH,URINE 5.5 (5.0-8.0); PROTEIN,URINE 30 mg/dl (NEGATIVE); UGLUCOSE Negative (NEGATIVE)
[2021-01-02 10:54] LABS: CALCIUM, SERUM 8.6 mg/dL (8.5-10.1); CARBON DIOXIDE 24 mmol/L (21-32); CHLORIDE 97 mmol/L (98-107); CREATININE 0.7 mg/dL (0.6-1.3); GLUCOSE 98 mg/dL (74-106); POTASSIUM 3.1 mmol/L (3.5-5.1); SODIUM SERUM 140 mmol/L (136-145); UREA NITROGEN, BLOOD 4 mg/dL (7-18)
[2021-01-02 10:56] LABS: BACTERIA,URINE Few /HPF (None Seen); SQUAMOUS EPITHELIAL CELL,UR Few /HPF (None Seen)
[2021-01-02 11:01] LABS: ALANINE AMINOTRANSFERASE 159 U/L (12-78); ALBUMIN 4.2 g/dL (3.4-5.0); ALCOHOL, BLOOD 148 mg/dL (0-0); ALKALINE PHOSPHATASE 146 U/L (46-116); ASPARTATE AMINOTRANSFERASE 380 U/L (15-37); BILIRUBIN,DIRECT 0.7 mg/dL (0.0-0.2); TOTAL PROTEIN, SERUM 8.4 g/dL (6.4-8.2)
[2021-01-02 11:04] LABS: ACETAMINOPHEN 0 ug/ml (10-30)
[2021-01-02] MEDS ORDERED: CHLO25CA22 PO (11:07)
[2021-01-02 11:43] VITALS: BP 138/90
== END 2021-01-02 11:44 | disposition home or self-care (01) ==
LOC: ER 10:10
DX: F10.20 Alcohol dependence, uncomplicated (principal); E78.5 Hyperlipidemia, unspecified; Y90.9 Presence of alcohol in blood, level not specified; Z91.013 Allergy to seafood; Z79.82 Long term (current) use of aspirin; Z79.899 Other long term (current) drug therapy
CPT/HCPCS: 36415; 80048; 80076; 80143; 80307; 80320; 81001; 85025; 87086; 96361; 96374; 99283; J2405; J7030; G0480

== ENCOUNTER 2021-03-31 11:19 | Emergency (ER) | payer OTHER ==
[~2021-03-31] VITALS: Ht 167.6 cm; Wt 79.4 kg
[~2021-03-31 11:19] MED LIST changes: +CHLO25CA22 PO
--- NOTE | 2021-03-31 11:28 | NUR ---
TO ER BED 6, C/O WEAKNESS AND LOSS OF APPETITE FOR 3WEEKS, AAOX3, BREATHING EVEN AND NON LABORED, CONNECTED TO MONITOR
--- NOTE | 2021-03-31 11:50 | NUR ---
INITIATED RAC#20G S/L; PATENT AND INTACT
[2021-03-31] MEDS ORDERED: IV LR 1000 ML 1,000 ML BAG IV ONE (12:00)
--- NOTE | 2021-03-31 12:01 | NUR ---
UNABLE TO PROVID URINE AT THIS TIME
[2021-03-31 12:06] LABS: BASOPHILS % (AUTO) 0.5 % (0.0-2.0); EOSINOPHILS % (AUTO) 0.2 % (0.0-6.0); HEMATOCRIT 41 % (33-45); HEMOGLOBIN 14.4 g/dL (11.5-14.8); LYMPHOCYTES # (AUTO) 1.5 K/uL (0.8-4.8); LYMPHOCYTES % (AUTO) 16.4 % (20.0-44.0); MEAN CORPUSCULAR HGB CONC 35 g/dl (31.0-36.0); MEAN CORPUSCULAR VOLUME 97 fL (82-100); MONOCYTES # (AUTO) 1.3 K/uL (0.1-1.30); MONOCYTES % (AUTO) 13.9 % (2.0-12.0); NEUTROPHILS # (AUTO) 6.5 K/uL (1.8-8.9); PLATELET COUNT (AUTO) 262 K/uL (150-450); RED BLOOD CELL COUNT(AUTO) 4.24 MIL/uL (4.0-5.2); WHITE BLOOD COUNT (AUTO) 9.4 K/uL (4.3-11.0)
--- NOTE | 2021-03-31 12:21 | NUR ---
URINE COLLECTED AND SENT TO LAB
[2021-03-31 13:00] LABS: ALANINE AMINOTRANSFERASE 106 U/L (12-78); ALBUMIN 3.3 g/dL (3.4-5.0); ALKALINE PHOSPHATASE 217 U/L (46-116); ASPARTATE AMINOTRANSFERASE 247 U/L (15-37); BILIRUBIN,DIRECT 1.1 mg/dL (0.0-0.2); BILIRUBIN,TOTAL 1.8 mg/dL (0.2-1.0); CARBON DIOXIDE 31 mmol/L (21-32); CHLORIDE 90 mmol/L (98-107); CREATININE 0.8 mg/dL (0.6-1.3); GLUCOSE 151 mg/dL (74-106); POTASSIUM 2.9 mmol/L (3.5-5.1); SODIUM SERUM 130 mmol/L (136-145); TOTAL PROTEIN, SERUM 8.7 g/dL (6.4-8.2); UREA NITROGEN, BLOOD 7 mg/dL (7-18)
[2021-03-31 13:20] LABS: BILIRUBIN,URINE MODERATE (NEGATIVE); COLOR,URINE DARK YELLOW (YELLOW); LEUKOCYTE ESTERASE ,URINE SMALL (NEGATIVE); NITRITE, URINE NEGATIVE (NEGATIVE); PROTEIN,URINE TRACE mg/dl (NEGATIVE); UGLUCOSE NEGATIVE (NEGATIVE)
--- NOTE | 2021-03-31 13:22 | NUR ---
LACTIC ACID 2.1
--- NOTE | 2021-03-31 13:23 | NUR ---
UPDATED DANIELLE ON PT'S STATUS. VSS. ADLS PERFORMED
[2021-03-31] MEDS ORDERED: FOLI0.4T6 PO (13:30)
[2021-03-31] MEDS ORDERED: MULT-1200 PO (13:30)
[2021-03-31] MEDS ORDERED: IV NS 0.9% 1,000 ML IV ONE (13:30)
[2021-03-31] MEDS ORDERED: ONDANSETRON HCL/PF - ER 4 MG/2 ML VIAL IV ONE (13:30)
[2021-03-31] MEDS ORDERED: CYAN-51 PO (13:30)
[2021-03-31] MEDS ORDERED: ONDANSETRON HCL/PF 4 MG/2 ML VIAL ONE (13:35)
[2021-03-31] MEDS ORDERED: LORAZEPAM INJ 2 MG/ML VIAL ONE (13:49)
[2021-03-31 13:53] LABS: BACTERIA,URINE Many /HPF (None Seen); SQUAMOUS EPITHELIAL CELL,UR Few /HPF (None Seen)
--- NOTE | 2021-03-31 13:59 | NUR ---
[facility] CLERK AT PT'S BEDSIDE
[2021-03-31] MEDS ORDERED: LORAZEPAM INJ 2 MG/ML VIAL IV ONE (14:00)
--- NOTE | 2021-03-31 14:08 | NUR ---
MARBELLA FROM [facility] TRANSFER [place] CALLED TO NOTIFY THAT PT IS ACCEPTED TO [facility]. WILL GIVE US ROOM ASSIGNMENT WHEN WE HAVE THE COVID RESULT. CALL HER WHEN WE FAX COVID RESULT. FAX: [phone]. DIRECT PHONE: [phone].
[2021-03-31] MEDS: POTASSIUM CL. PREMIX PERIPHER. 50 ML IV SCH ×4 (14:10→17:24)
[2021-03-31] MEDS ORDERED: Magnesium 1GM/D5W 100ML PREMIX 100 ML IV ONE (14:10)
[2021-03-31] MEDS ORDERED: POTASSIUM CL. PREMIX PERIPHER. 50 ML ONE (14:10)
--- NOTE | 2021-03-31 14:23 | NUR ---
SS Consult: SS consult for ETOH. Pt. Is a 61-year-old female. Pt. demonstrates adequate insight to the reason for hospitalization. Per pt., she was brought to hospital by calling a [employer]. Per pt., she came to hospital due to drinking. Pt. was oriented x3, alert, and cooperative. During interview, pt. was capable of following directions but did not make appropriate eye-contact. DIONISIO explored pt.s Hx of mental health and substance abuse. Pt. reported no Hx of mental health, SI/HI, denied AH/VH, paranoia or delusions. Per pt., she has been drinking for over 25 years and wants help. Per pt., she went to AA meetings in the past. Pt. reported that her drinking habits has taken over her life. DIONISIO explored pt.s living situation and support system. Per pt., she lives alone [[id number] [place] [address], ]. Per pt., she reports having adequate support from family [brother, sister, and aunt]. DIONISIO explored pt.s financial status. Per pt., she is not working, but receives food stamps. Pt. reported that she is ambulatory but uses a cane when needed. Per pt., once discharged she will figure out a mode of transportation. DIONISIO provided substance abuse resources and pt. accepted. Plan: DIONISIO provided available resources and pt. accepted. Once discharge, per pt., she will return to home [ [id number] [place] [address]]. Resources Provided: Substance Abuse resources provided included: [facility] Substance Abuse Self-Helpline ([facility]) ; [facility] [address] [facility] [place] [id number] ; [facility] [address] [facility] [address] ; [facility] [address] [facility] [address] ; [facility] [address] [facility] [address] ; [facility] [address] [facility] [address] ; [facility] [address] [employer] [phone] ; [facility] Substance Abuse Helpline(SAS)-[facility] ; Counts Include [address] [facility] Family Counseling ; [facility] [place]; [facility] [place]; [facility] [place]; [facility] [place]; [facility] [place]; [facility]; [facility] [place]; [facility], [facility]. [facility] [place]; Alcoholics Anonymous -SFV; Qm-Mxym-[facility]ev[facility] ; Marijuana Anonymous -[facility]; Narcotics Anonymous www.na.org;
[2021-03-31] MEDS ORDERED: Magnesium 1GM/D5W 100ML PREMIX 100 ML IV SCH (14:30)
[2021-03-31] MEDS ORDERED: POTASSIUM CL. PREMIX PERIPHER. 150 ML ONE (14:48)
--- NOTE | 2021-03-31 15:20 | NUR ---
Pt accepted to [facility] Room: 942-1 Number for report: [phone] Accepting: Dr. Colin
--- NOTE | 2021-03-31 15:38 | NUR ---
REPORT GIVEN TO OLENA LEWIS FROM [facility] FOR TERESITA
--- NOTE | 2021-03-31 16:59 | NUR ---
CALLED [facility] FOR TRANSPORT TO [facility]. ETA 2 HOURS.
[2021-03-31 18:27] VITALS: BP 140/96
--- NOTE | 2021-03-31 18:27 | NUR ---
GAVE OLENA LEWIS FROM [facility] UPDATE ON PT'S STATUS. VSS
== END 2021-03-31 19:00 | disposition short-term general hospital (02) ==
LOC: ER 11:22
DX: E86.0 Dehydration (principal); F10.20 Alcohol dependence, uncomplicated; Y90.0 Blood alcohol level of less than 20 mg/100 ml; E87.1 Hypo-osmolality and hyponatremia; R77.8 Other specified abnormalities of plasma proteins; R00.0 Tachycardia, unspecified; Z91.013 Allergy to seafood; E78.5 Hyperlipidemia, unspecified; I25.2 Old myocardial infarction; Z20.822 Contact with and (suspected) exposure to COVID-19
CPT/HCPCS: 36415; 71045; 80048; 80076; 80320; 81001; 83605 ×2; 84145; 84484; 85025; 85730; 87040 ×2; 87081; 87086; 87426; 93005; 96361; 96365; 96366; 96368; 96375; 99285; C9803; J2060; J2405; J3475; J3480 ×2; J7050; J7120 ×2; G0480

== ENCOUNTER 2023-07-10 05:59 | Inpatient (IN) | payer MEDICARE, OTHER ==
[~2023-07-10] VITALS: Ht 167.6 cm; Wt 139.3 kg
[2023-07-10] VITALS (21 sets, daily range): BP systolic 83–127; BP diastolic 49–97; TEMP 97–98.7; O2SAT 87–98
[~2023-07-10 05:59] MED LIST changes: -CHLO25CA22 PO; +CYAN-51 PO; +FOLI0.4T6 PO; +MULT-1200 PO
[2023-07-10] MEDS: IV NS 0.9% 1,000 ML BAG IV ONE (06:42)
[2023-07-10 07:17] LABS: BASOPHILS # (AUTO) 0.1 K/uL (0.0-0.2); BASOPHILS % (AUTO) 0.8 % (0.0-2.0); EOSINOPHILS % (AUTO) 0.1 % (0.0-6.0); HEMATOCRIT 27 % (33-45); LYMPHOCYTES # (AUTO) 2.2 K/uL (0.8-4.8); LYMPHOCYTES % (AUTO) 13.8 % (20.0-44.0); MEAN CORPUSCULAR HEMOGLOBIN 34 PG (26.0-33.0); MEAN CORPUSCULAR HGB CONC 37 g/dl (31.0-36.0); MEAN CORPUSCULAR VOLUME 92 fL (82-100); MONOCYTES # (AUTO) 1.7 K/uL (0.1-1.30); MONOCYTES % (AUTO) 10.4 % (2.0-12.0); NEUTROPHILS # (AUTO) 12.1 K/uL (1.8-8.9); NEUTROPHILS % (AUTO) 74.9 % (43.0-81.0); PLATELET COUNT (AUTO) 111 K/uL (150-450); RED BLOOD CELL COUNT(AUTO) 2.98 MIL/uL (4.0-5.2); RED CELL DISTRIBUTION WIDTH 18.6 % (11.5-15.0); WHITE BLOOD COUNT (AUTO) 16.2 K/uL (4.3-11.0)
[2023-07-10 07:22] LABS: LACTIC ACID 1.8 mmol/L (0.4-2.0)
[2023-07-10 07:30] LABS: PARTIAL THROMBOPLASTIN TIME 67.7 SEC (24.3-34.3); PROTHROMBIN TIME 20.3 SECS (9.2-11.1)
[2023-07-10 07:41] LABS: ALANINE AMINOTRANSFERASE 99 U/L (12-78); ALBUMIN 1.7 g/dL (3.4-5.0); ALKALINE PHOSPHATASE 316 U/L (46-116); ASPARTATE AMINOTRANSFERASE 331 U/L (15-37); BILIRUBIN,DIRECT 3.5 mg/dL (0.0-0.2); BILIRUBIN,TOTAL 4.8 mg/dL (0.2-1.0); CALCIUM, SERUM 8.8 mg/dL (8.5-10.1); CARBON DIOXIDE 26 mmol/L (21-32); CREATININE 4.4 mg/dL (0.6-1.3); GLUCOSE 147 mg/dL (74-106); POTASSIUM 3.3 mmol/L (3.5-5.1); UREA NITROGEN, BLOOD 27 mg/dL (7-18)
[2023-07-10] MEDS ORDERED: CEFTRIAXONE 1GM BAG (ER ONLY) 50 ML IV ONE (07:41)
[2023-07-10] MEDS: CEFTRIAXONE 1 G in IV D5W 50 ML IV ONE (07:47)
[2023-07-10] MEDS ORDERED: ASPIRIN 81 MG TAB.CHEW ONE (07:49)
[2023-07-10 07:53] LABS: CHLORIDE 74 mmol/L (98-107); SODIUM SERUM 111 mmol/L (136-145)
[2023-07-10] MEDS: ASPIRIN 81 MG TAB.CHEW PO ONE (07:56)
[2023-07-10 08:44] LABS: APPEARANCE,URINE TURBID (CLEAR); BILIRUBIN,URINE 2+ (NEGATIVE); BLOOD, URINE 3+ Ery/uL (NEGATIVE); COLOR,URINE DARK YELLOW (YELLOW); KETONES,URINE TRACE mg/dL (NEGATIVE); LEUKOCYTE ESTERASE ,URINE TRACE (NEGATIVE); NITRITE, URINE NEGATIVE (NEGATIVE); PROTEIN,URINE 2+ mg/dl (NEGATIVE); UGLUCOSE NEGATIVE (NEGATIVE); UROBILINOGEN,URINE 0.2 EU/dL (0.2)
[2023-07-10 08:46] LABS: ADD URINE CULTURE YES; BACTERIA,URINE Few /HPF (None Seen); RBC,URINE 21-50 /HPF (0-2); SQUAMOUS EPITHELIAL CELL,UR Moderate /HPF (None Seen)
[2023-07-10 08:58] LABS: AMPHETAMINE, URINE NEGATIVE (NEGATIVE); BARBITURATE, URINE NEGATIVE (NEGATIVE); BENZODIAZEPINE, URINE NEGATIVE (NEGATIVE); CANNABINOID, URINE NEGATIVE (NEGATIVE); COCCAINE, URINE NEGATIVE (NEGATIVE); OPIATE, URINE NEGATIVE (NEGATIVE); PHENCYCLIDINE SCREEN,URINE NEGATIVE (NEGATIVE)
[2023-07-10] MEDS: POTASSIUM CHLORIDE 10 MEQ TABLET.SA PO ONE ×2 (11:30→13:52)
[2023-07-10] MEDS: PHYTONADIONE INJ 10 MG/1 ML AMPUL SQ ONE (11:30)
[2023-07-10] MEDS ORDERED: ONDANSETRON HCL/PF 4 MG/2 ML VIAL IVP PRN (11:30)
[2023-07-10] MEDS ORDERED: Z GUARD REMEDY 4 OZ OINT TP PRN (11:30)
[2023-07-10] MEDS ORDERED: ACETAMINOPHEN 325 MG TABLET PO PRN (11:30)
[2023-07-10 12:43] LABS: POTASSIUM 3.3 mmol/L (3.5-5.1)
[2023-07-10 12:45] LABS: CALCIUM, SERUM 8.8 mg/dL (8.5-10.1); CREATININE 4.4 mg/dL (0.6-1.3)
[2023-07-10] MEDS ORDERED: CHLORDIAZEPOXIDE HCL 25 MG CAPSULE PO SCH (13:00)
[2023-07-10] MEDS: FOLIC ACID 1 MG TABLET PO SCH (13:46)
[2023-07-10] MEDS: THIAMINE HCL 100 MG TABLET PO SCH (13:46)
[2023-07-10] MEDS: CHLORDIAZEPOXIDE HCL 25 MG CAPSULE PO SCH (13:46)
[2023-07-10] MEDS: IV NS 0.9% 250 ML IV PRN (13:48)
[2023-07-10] MEDS: CEFTRIAXONE 2 G in IV D5W 100 ML IV SCH (13:48)
[2023-07-10] MEDS: PHYTONADIONE INJ 10 MG/1 ML AMPUL SQ SCH (13:51)
[2023-07-10 14:58] LABS: CREATININE 4.2 mg/dL (0.6-1.3); POTASSIUM 3.3 mmol/L (3.5-5.1)
[2023-07-10 15:04] LABS: CALCIUM, SERUM 8.6 mg/dL (8.5-10.1)
[2023-07-10] MEDS: AZITHROMYCIN 500 MG in IV D5W 250 ML IV SCH (15:19)
[2023-07-10] MEDS ORDERED: LORAZEPAM INJ 2 MG/ML VIAL IV PRN (15:30)
[2023-07-10] MEDS: LORAZEPAM 1 MG TABLET PO PRN (17:25)
[2023-07-10 18:06] LABS: CALCIUM, SERUM 8.2 mg/dL (8.5-10.1); CREATININE 4.4 mg/dL (0.6-1.3)
[2023-07-10 18:08] LABS: POTASSIUM 2.8 mmol/L (3.5-5.1)
[2023-07-10] MEDS: ALBUMIN 25% 25 GM in PREMIX 1 EA IV SCH (18:52)
[2023-07-10] MEDS: IV Sodium Chloride 3% 500 ML 500 ML IV SCH (18:52)
[2023-07-11] VITALS (34 sets, daily range): BP systolic 66–138; BP diastolic 47–112; TEMP 96.8–97.5; O2SAT 61–98
[2023-07-11 02:39] LABS: APPEARANCE,URINE TURBID (CLEAR); BILIRUBIN,URINE 2+ (NEGATIVE); BLOOD, URINE 2+ Ery/uL (NEGATIVE); COLOR,URINE DARK YELLOW (YELLOW); KETONES,URINE NEGATIVE (NEGATIVE); LEUKOCYTE ESTERASE ,URINE NEGATIVE (NEGATIVE); NITRITE, URINE POSITIVE (NEGATIVE); PROTEIN,URINE 2+ mg/dl (NEGATIVE); UGLUCOSE NEGATIVE (NEGATIVE)
[2023-07-11 02:45] LABS: CALCIUM, SERUM 8.3 mg/dL (8.5-10.1); CREATININE 4.1 mg/dL (0.6-1.3); POTASSIUM 4.9 mmol/L (3.5-5.1)
[2023-07-11 02:50] LABS: ADD URINE CULTURE YES; BACTERIA,URINE Moderate /HPF (None Seen); EOSINOPHIL,URINE None Seen; SQUAMOUS EPITHELIAL CELL,UR Few /HPF (None Seen); WBC,URINE 21-50 /HPF (0-3)
[2023-07-11 02:52] LABS: CREATININE, URINE 264.6 MG/DL (30.0-125.0); URINE SODIUM, RANDOM < 5 mmol/l (40-220); URINE TOTAL PROTEIN 268.8 mg/dL (0-11.9)
[2023-07-11] MEDS: SODIUM CHLORIDE 3% IV ONE ×2 (04:39→23:13)
[2023-07-11 05:44] LABS: BASOPHILS % (AUTO) 0.2 % (0.0-2.0); HEMATOCRIT 21 % (33-45); HEMOGLOBIN 7.7 g/dL (11.5-14.8); LYMPHOCYTES # (AUTO) 1.8 K/uL (0.8-4.8); MEAN CORPUSCULAR HEMOGLOBIN 34 PG (26.0-33.0); MEAN CORPUSCULAR HGB CONC 36 g/dl (31.0-36.0); MEAN CORPUSCULAR VOLUME 94 fL (82-100); MONOCYTES # (AUTO) 1.5 K/uL (0.1-1.30); MONOCYTES % (AUTO) 10.6 % (2.0-12.0); NEUTROPHILS # (AUTO) 10.5 K/uL (1.8-8.9); NEUTROPHILS % (AUTO) 76.2 % (43.0-81.0); PLATELET COUNT (AUTO) 79 K/uL (150-450); RED BLOOD CELL COUNT(AUTO) 2.28 MIL/uL (4.0-5.2); RED CELL DISTRIBUTION WIDTH 18.5 % (11.5-15.0); WHITE BLOOD COUNT (AUTO) 13.8 K/uL (4.3-11.0)
[2023-07-11 05:49] LABS: ALBUMIN 2.7 g/dL (3.4-5.0); BILIRUBIN,TOTAL 3.8 mg/dL (0.2-1.0); CALCIUM, SERUM 8.1 mg/dL (8.5-10.1); MAGNESIUM 2.3 mg/dL (1.8-2.4); PHOSPHORUS 3.1 mg/dL (2.5-4.9); POTASSIUM 2.9 mmol/L (3.5-5.1); TOTAL PROTEIN, SERUM 6.5 g/dL (6.4-8.2)
[2023-07-11 05:56] LABS: THYROID STIMULATING HORMONE 3.94 uIU/mL (0.358-3.74)
[2023-07-11] MEDS: IV NS 0.9% 500 ML IV ONE (06:58)
[2023-07-11] MEDS: PANTOPRAZOLE 40 MG TABLET.DR PO SCH (08:20)
[2023-07-11 08:43] LABS: ANISOCYTOSIS 1+; BASOPHILS % (MANUAL) 0 % (0.0-2.0); EOSINOPHILS % (MANUAL) 2 % (0-4); HYPOCHROMASIA 1+; LYMPHOCYTES % (MANUAL) 11 % (16-48); MONOCYTES % (MANUAL) 8 % (0-11.0); NEUTROPHILS % (MANUAL) 79 (42-76); PLATELET ESTIMATE DECREASED; TARGET CELLS 1+
[2023-07-11] MEDS: POTASSIUM CHLORIDE 10 MEQ TABLET.SA PO ONE (12:26)
[2023-07-11] MEDS: CEFEPIME HCL 2 GM in IV D5W 100 ML IV SCH (12:27)
[2023-07-11] MEDS: ALBUMIN 25% 25 GM in PREMIX 1 EA IV SCH (12:46)
[2023-07-11 12:51] LABS: CALCIUM, SERUM 8.5 mg/dL (8.5-10.1); CREATININE 4.4 mg/dL (0.6-1.3); POTASSIUM 3.1 mmol/L (3.5-5.1)
[2023-07-11 13:05] LABS: CALCIUM, SERUM 8.5 mg/dL (8.5-10.1); CREATININE 4.4 mg/dL (0.6-1.3)
[2023-07-11] MEDS: VANCOMYCIN 1 GM in IV D5W 250ml IV ONE (13:15)
[2023-07-11] MEDS: OCTREOTIDE 50 MCG in IV NS 0.9% 50 ML IJ ONE (14:41)
[2023-07-11] MEDS: OCTREOTIDE 1,250 MCG in IV NS 0.9% 247.5 ML IV PRN (15:30)
[2023-07-11] MEDS: IV Sodium Chloride 3% 500 ML 500 ML IV SCH (17:10)
[2023-07-11 17:20] LABS: CALCIUM, SERUM 8.4 mg/dL (8.5-10.1); CREATININE 4.4 mg/dL (0.6-1.3); POTASSIUM 3.5 mmol/L (3.5-5.1)
[2023-07-11] MEDS: PANTOPRAZOLE 40 MG VIAL IV SCH (20:40)
[2023-07-11] MEDS ORDERED: IV Sodium Chloride 3% 500 ML 500 ML IV SCH (21:30)
[2023-07-11 22:08] LABS: CALCIUM, SERUM 8.9 mg/dL (8.5-10.1); CREATININE 4.4 mg/dL (0.6-1.3); POTASSIUM 3.7 mmol/L (3.5-5.1)
[2023-07-12] VITALS (110 sets, daily range): BP systolic 49–141; BP diastolic 31–117; TEMP 96–98.4; O2SAT 70–100
[2023-07-12] MEDS ORDERED: IPRATROPIUM NEB FS 0.5 MG/2.5 ML AMPUL.NEB NEB PRN (01:30)
[2023-07-12] MEDS ORDERED: ALBUTEROL FS 2.5 MG/0.5 ML VIAL.NEB NEB PRN (01:30)
[2023-07-12 01:31] LABS: CALCIUM, SERUM 8.3 mg/dL (8.5-10.1); CREATININE 4.5 mg/dL (0.6-1.3); POTASSIUM 3.8 mmol/L (3.5-5.1)
[2023-07-12 04:23] LABS: LYMPHOCYTES # (AUTO) 1.8 K/uL (0.8-4.8); NEUTROPHILS # (AUTO) 10.2 K/uL (1.8-8.9); PLATELET COUNT (AUTO) 64 K/uL (150-450)
[2023-07-12 04:34] LABS: BASOPHILS % (AUTO) 0.3 % (0.0-2.0); LYMPHOCYTES % (AUTO) 13.8 % (20.0-44.0); MEAN CORPUSCULAR HEMOGLOBIN 34 PG (26.0-33.0); MEAN CORPUSCULAR HGB CONC 36 g/dl (31.0-36.0); MEAN CORPUSCULAR VOLUME 95 fL (82-100); MONOCYTES # (AUTO) 0.9 K/uL (0.1-1.30); MONOCYTES % (AUTO) 6.9 % (2.0-12.0); RED CELL DISTRIBUTION WIDTH 18.6 % (11.5-15.0); WHITE BLOOD COUNT (AUTO) 12.9 K/uL (4.3-11.0)
[2023-07-12 04:35] LABS: RED BLOOD CELL COUNT(AUTO) 1.72 MIL/uL (4.0-5.2)
[2023-07-12 04:38] LABS: HEMATOCRIT 16 % (33-45); HEMOGLOBIN 5.8 g/dL (11.5-14.8)
[2023-07-12 04:50] LABS: ALBUMIN 3.1 g/dL (3.4-5.0); BILIRUBIN,TOTAL 4.1 mg/dL (0.2-1.0); CALCIUM, SERUM 8.6 mg/dL (8.5-10.1); CREATININE 4.2 mg/dL (0.6-1.3); MAGNESIUM 2.3 mg/dL (1.8-2.4); PHOSPHORUS 4.4 mg/dL (2.5-4.9); POTASSIUM 4.2 mmol/L (3.5-5.1)
[2023-07-12] MEDS: IV NS 0.9% 500 ML IV ONE (06:03)
[2023-07-12 08:12] LABS: BAND % (MANUAL) 1 % (0.0-5.0); LYMPHOCYTES % (MANUAL) 12 % (16-48); NEUTROPHILS % (MANUAL) 83 (42-76)
[2023-07-12 08:13] LABS: ANISOCYTOSIS 1+; HYPOCHROMASIA 1+; MONOCYTES % (MANUAL) 4 % (0-11.0); PLATELET ESTIMATE DECREASED
[2023-07-12 08:14] LABS: TARGET CELLS 1+; TEAR DROP CELLS FEW
[2023-07-12 08:42] LABS: ABG BASE EXCESS -1.9 mmol/L; ABG OXYGEN SATURATION 88.2 % (92.0-98.5); ABG PCO2 39.5 mmHg (35.0-45.0); ABG PH 7.383 (7.350-7.450); ABG PO2 62.8 mmHg (75.0-100.0); ABG TOTAL HEMOGLOBIN 6.1 G/dL (12.0-16.0); AaDO2 610.7 mmHg; COHb 0.6 % (0.5-1.5); MetHb 0.6 % (0.0-1.5); O2Hb 87.1 % (94.0-97.0); SITE, ABG Right Femoral; VENT MODE, BG NRB MASK 15L
[2023-07-12] MEDS: MULTIVIT W/MINERALS 1 TAB TABLET PO SCH (09:00)
[2023-07-12] MEDS: CYANOCOBALAMIN 500 MCG TABLET PO SCH (09:00)
[2023-07-12] MEDS: MIDODRINE HCL (5MG) 5 MG TABLET PO SCH (09:00)
[2023-07-12 09:36] LABS: CALCIUM, SERUM 8.5 mg/dL (8.5-10.1); CREATININE 4.3 mg/dL (0.6-1.3); POTASSIUM 3.8 mmol/L (3.5-5.1)
[2023-07-12] MEDS ORDERED: NOREPINEPHRINE 8 MG in IV D5W 242 ML IV PRN (10:00)
[2023-07-12] MEDS: NOREPINEPHRINE 8 MG in IV D5W 242 ML IV PRN (10:03)
[2023-07-12 10:25] LABS: INR 2.55 (0.91-1.10); PROTHROMBIN TIME 25.4 SECS (9.2-11.1)
[2023-07-12 11:09] LABS: PARTIAL THROMBOPLASTIN TIME 107.9 SEC (24.3-34.3)
[2023-07-12] MEDS: PHYTONADIONE INJ 10 MG/1 ML AMPUL SQ SCH (11:39)
[2023-07-12] MEDS: PROPOFOL 100 ML IV PRN (13:21)
[2023-07-12 13:47] LABS: CALCIUM, SERUM 8.6 mg/dL (8.5-10.1); CREATININE 4.4 mg/dL (0.6-1.3); POTASSIUM 3.5 mmol/L (3.5-5.1)
[2023-07-12 14:22] LABS: ABG BASE EXCESS -5.1 mmol/L; ABG OXYGEN SATURATION 94.8 % (92.0-98.5); ABG PCO2 35.1 mmHg (35.0-45.0); ABG PH 7.367 (7.350-7.450); ABG PO2 84.9 mmHg (75.0-100.0); ABG TOTAL HEMOGLOBIN 7.2 G/dL (12.0-16.0); COHb 0.2 % (0.5-1.5); MetHb 0.4 % (0.0-1.5); O2Hb 94.2 % (94.0-97.0); SITE, ABG Right Radial; VENT MODE, BG AC 18 450 +0 100%
[2023-07-12 15:36] LABS: INR 2.47 (0.91-1.10); PROTHROMBIN TIME 24.7 SECS (9.2-11.1)
[2023-07-12 15:40] LABS: D-DIMER 10.8 mg/L(FEU (0.17-0.50)
[2023-07-12 15:41] LABS: PARTIAL THROMBOPLASTIN TIME 94.4 SEC (24.3-34.3)
[2023-07-12 17:16] LABS: RHEUMATOID FACTOR SCREEN NEGATIVE (NEGATIVE)
[2023-07-12 18:21] LABS: CALCIUM, SERUM 8.6 mg/dL (8.5-10.1); CREATININE 4.3 mg/dL (0.6-1.3); POTASSIUM 3.4 mmol/L (3.5-5.1)
[2023-07-12 21:19] LABS: CALCIUM, SERUM 8.2 mg/dL (8.5-10.1); CREATININE 4.2 mg/dL (0.6-1.3)
[2023-07-12 23:30] LABS: EOSINOPHILS % (AUTO) 0.1 % (0.0-6.0)
[2023-07-12 23:38] LABS: BASOPHILS # (AUTO) 0.1 K/uL (0.0-0.2); BASOPHILS % (AUTO) 0.4 % (0.0-2.0); LYMPHOCYTES # (AUTO) 1.8 K/uL (0.8-4.8); LYMPHOCYTES % (AUTO) 12.4 % (20.0-44.0); MEAN CORPUSCULAR HEMOGLOBIN 32 PG (26.0-33.0); MEAN CORPUSCULAR HGB CONC 35 g/dl (31.0-36.0); MEAN CORPUSCULAR VOLUME 91 fL (82-100); MONOCYTES # (AUTO) 1.5 K/uL (0.1-1.30); MONOCYTES % (AUTO) 10.1 % (2.0-12.0); NEUTROPHILS # (AUTO) 11.3 K/uL (1.8-8.9); PLATELET COUNT (AUTO) 66 K/uL (150-450); RED CELL DISTRIBUTION WIDTH 18.7 % (11.5-15.0); WHITE BLOOD COUNT (AUTO) 14.7 K/uL (4.3-11.0)
[2023-07-12 23:44] LABS: RED BLOOD CELL COUNT(AUTO) 1.99 MIL/uL (4.0-5.2)
[2023-07-12 23:45] LABS: HEMATOCRIT 18 % (33-45); HEMOGLOBIN 6.4 g/dL (11.5-14.8)
[2023-07-13] VITALS (114 sets, daily range): BP systolic 79–115; BP diastolic 30–60; TEMP 96.7–99.1; O2SAT 96–100
[2023-07-13 00:22] LABS: ANISOCYTOSIS 1+; BAND % (MANUAL) 2 % (0.0-5.0); BASOPHILS % (MANUAL) 0 % (0.0-2.0); EOSINOPHILS % (MANUAL) 0 % (0-4); HYPOCHROMASIA 1+; LYMPHOCYTES % (MANUAL) 10 % (16-48); MONOCYTES % (MANUAL) 9 % (0-11.0); NEUTROPHILS % (MANUAL) 79 (42-76); PLATELET ESTIMATE DECREASED; TARGET CELLS 1+
[2023-07-13 01:29] LABS: CALCIUM, SERUM 8.1 mg/dL (8.5-10.1); CREATININE 4.3 mg/dL (0.6-1.3)
[2023-07-13 05:26] LABS: CALCIUM, SERUM 8.2 mg/dL (8.5-10.1); CREATININE 4.3 mg/dL (0.6-1.3); POTASSIUM 3.2 mmol/L (3.5-5.1)
[2023-07-13 06:16] LABS: INR 1.75 (0.91-1.10); PARTIAL THROMBOPLASTIN TIME 61.8 SEC (24.3-34.3); PROTHROMBIN TIME 17.9 SECS (9.2-11.1)
[2023-07-13 06:23] LABS: D-DIMER 7.4 mg/L(FEU (0.17-0.50)
[2023-07-13 07:12] LABS: *SPE A/G RATIO 0.9 (0.7-1.7); *SPE ALBUMIN 2.7 g/dL (2.9-4.4); *SPE ALPHA-1-GLOBULIN 0.3 g/dL (0.0-0.4); *SPE ALPHA-2-GLOBULIN 0.4 g/dL (0.4-1.0); *SPE BETA GLOBULIN 0.8 g/dL (0.7-1.3); *SPE GLOBULIN, TOTAL 2.9 g/dL (2.2-3.9); *SPE M-SPIKE Not Observed g/dL (Not Observed); *SPE PROTEIN TOTAL 5.6 g/dL (6.0-8.5); *SPEGAMMA GLOBULIN 1.5 g/dL (0.4-1.8)
[2023-07-13 07:38] LABS: BASOPHILS # (AUTO) 0.1 K/uL (0.0-0.2); BASOPHILS % (AUTO) 0.4 % (0.0-2.0); EOSINOPHILS % (AUTO) 0.1 % (0.0-6.0); LYMPHOCYTES # (AUTO) 2.7 K/uL (0.8-4.8); LYMPHOCYTES % (AUTO) 16.1 % (20.0-44.0); MEAN CORPUSCULAR HEMOGLOBIN 32 PG (26.0-33.0); MEAN CORPUSCULAR HGB CONC 35 g/dl (31.0-36.0); MEAN CORPUSCULAR VOLUME 92 fL (82-100); MONOCYTES # (AUTO) 2.3 K/uL (0.1-1.30); NEUTROPHILS # (AUTO) 11.4 K/uL (1.8-8.9); NEUTROPHILS % (AUTO) 69.4 % (43.0-81.0); PLATELET COUNT (AUTO) 61 K/uL (150-450); RED CELL DISTRIBUTION WIDTH 18.8 % (11.5-15.0); WHITE BLOOD COUNT (AUTO) 16.4 K/uL (4.3-11.0)
[2023-07-13 07:47] LABS: RED BLOOD CELL COUNT(AUTO) 1.81 MIL/uL (4.0-5.2)
[2023-07-13 07:49] LABS: HEMATOCRIT 17 % (33-45); HEMOGLOBIN 5.8 g/dL (11.5-14.8)
[2023-07-13 07:58] LABS: ABG BASE EXCESS -3.4 mmol/L; ABG OXYGEN SATURATION 92.7 % (92.0-98.5); ABG PCO2 33.7 mmHg (35.0-45.0); ABG PO2 73.1 mmHg (75.0-100.0); ABG TOTAL HEMOGLOBIN 6.2 G/dL (12.0-16.0); AaDO2 606.2 mmHg; MetHb 0.4 % (0.0-1.5); O2Hb 92.3 % (94.0-97.0); SITE, ABG Right Radial; VENT MODE, BG AC 18 450 100% +0
[2023-07-13 08:07] LABS: PTH, INTACT 248 pg/mL (15-65)
[2023-07-13] MEDS: diphenhydrAMINE HCL 50 MG/ML VIAL IV ONE (09:09)
[2023-07-13] MEDS ORDERED: diphenhydrAMINE HCL 50 MG/ML VIAL IV ONE ×2 (09:30→11:00)
[2023-07-13 09:38] LABS: CALCIUM, SERUM 8.3 mg/dL (8.5-10.1); CREATININE 4.3 mg/dL (0.6-1.3); POTASSIUM 3.2 mmol/L (3.5-5.1)
[2023-07-13] MEDS ORDERED: SUCCINYLCHOLINE CHLORIDE 20 MG/ML VIAL IV ONE (09:47)
[2023-07-13] MEDS ORDERED: ETOMIDATE 2 MG/ML VIAL IV ONE (09:47)
[2023-07-13 10:50] LABS: ANISOCYTOSIS 1+; BAND % (MANUAL) 4 % (0.0-5.0); BASOPHILS % (MANUAL) 0 % (0.0-2.0); EOSINOPHILS % (MANUAL) 2 % (0-4); HYPOCHROMASIA 1+; LYMPHOCYTES % (MANUAL) 14 % (16-48); MONOCYTES % (MANUAL) 10 % (0-11.0); NEUTROPHILS % (MANUAL) 70 (42-76); PLATELET ESTIMATE DECREASED
[2023-07-13 11:11] LABS: IMMUNOGLOBULIN A, SERUM 512 mg/dL (87-352); IMMUNOGLOBULIN G, SERUM 1311 mg/dL (586-1602); IMMUNOGLOBULIN M, SERUM 123 mg/dL (26-217)
[2023-07-13] MEDS ORDERED: diphenhydrAMINE HCL 50 MG/ML VIAL IV PRN (12:00)
[2023-07-13] MEDS: D5W IV ONE ×2 (12:06→13:59)
[2023-07-13] MEDS: AMINOCAPROIC ACID IV ONE ×2 (12:06→13:59)
[2023-07-13] MEDS: NOREPINEPHRINE 32 MG in IV NS 0.9% 218 ML IV PRN (12:50)
[2023-07-13] MEDS: VANCOMYCIN 750 MG in IV D5W 250 ML IV SCH (13:31)
[2023-07-13 15:02] LABS: BASOPHILS # (AUTO) 0.1 K/uL (0.0-0.2); BASOPHILS % (AUTO) 0.7 % (0.0-2.0); LYMPHOCYTES # (AUTO) 3.6 K/uL (0.8-4.8); LYMPHOCYTES % (AUTO) 19.1 % (20.0-44.0); MEAN CORPUSCULAR HEMOGLOBIN 30 PG (26.0-33.0); MEAN CORPUSCULAR HGB CONC 34 g/dl (31.0-36.0); MEAN CORPUSCULAR VOLUME 88 fL (82-100); MONOCYTES # (AUTO) 2.6 K/uL (0.1-1.30); MONOCYTES % (AUTO) 13.9 % (2.0-12.0); NEUTROPHILS # (AUTO) 12.5 K/uL (1.8-8.9); NEUTROPHILS % (AUTO) 66.3 % (43.0-81.0); PLATELET COUNT (AUTO) 55 K/uL (150-450); RED BLOOD CELL COUNT(AUTO) 2.14 MIL/uL (4.0-5.2); RED CELL DISTRIBUTION WIDTH 22.3 % (11.5-15.0); WHITE BLOOD COUNT (AUTO) 18.8 K/uL (4.3-11.0)
[2023-07-13 15:09] LABS: HEMOGLOBIN 6.4 g/dL (11.5-14.8)
[2023-07-13 15:10] LABS: HEMATOCRIT 19 % (33-45)
[2023-07-13 15:15] LABS: CREATININE 4.1 mg/dL (0.6-1.3); POTASSIUM 3.2 mmol/L (3.5-5.1)
[2023-07-13 16:17] LABS: INR 1.77 (0.91-1.10); PROTHROMBIN TIME 18.1 SECS (9.2-11.1)
[2023-07-13] MEDS: IV Sodium Chloride 3% 500 ML 100 ML IV ONE (16:28)
[2023-07-13 17:02] LABS: ANISOCYTOSIS 1+; LYMPHOCYTES % (MANUAL) 21 % (16-48); MONOCYTES % (MANUAL) 9 % (0-11.0); NEUTROPHILS % (MANUAL) 70 (42-76); OVALOCYTES 1+; PLATELET ESTIMATE DECREASED
[2023-07-13 17:03] LABS: TARGET CELLS 1+
[2023-07-13 17:37] LABS: CALCIUM, SERUM 7.8 mg/dL (8.5-10.1); POTASSIUM 3.2 mmol/L (3.5-5.1)
[2023-07-13] MEDS ORDERED: PHENYLEPHRINE 1% NASAL SPRAY 15 ML BOTTLE NS PRN (18:00)
[2023-07-13] MEDS: POTASSIUM CL. PREMIX PERIPHER. 50 ML IV SCH (19:47)
[2023-07-13 21:29] LABS: MEAN CORPUSCULAR HEMOGLOBIN 30 PG (26.0-33.0); RED CELL DISTRIBUTION WIDTH 22.2 % (11.5-15.0)
[2023-07-13 21:34] LABS: MEAN CORPUSCULAR HGB CONC 34 g/dl (31.0-36.0); MEAN CORPUSCULAR VOLUME 87 fL (82-100); PLATELET COUNT (AUTO) 58 K/uL (150-450); RED BLOOD CELL COUNT(AUTO) 2.21 MIL/uL (4.0-5.2); WHITE BLOOD COUNT (AUTO) 19.2 K/uL (4.3-11.0)
[2023-07-13 21:37] LABS: HEMATOCRIT 19 % (33-45); HEMOGLOBIN 6.5 g/dL (11.5-14.8)
[2023-07-13 21:38] LABS: CALCIUM, SERUM 8.1 mg/dL (8.5-10.1); CREATININE 3.9 mg/dL (0.6-1.3); POTASSIUM 3.4 mmol/L (3.5-5.1)
[2023-07-14] VITALS (96 sets, daily range): BP systolic 77–117; BP diastolic 37–62; TEMP 96.3–98.6; O2SAT 92–100
[2023-07-14] MEDS ORDERED: IV Sodium Chloride 3% 500 ML 500 ML IV ONE (00:44)
[2023-07-14] MEDS: SODIUM CHLORIDE 3% IV ONE (01:07)
[2023-07-14 01:19] LABS: HEMATOCRIT 22 % (33-45); HEMOGLOBIN 7.7 g/dL (11.5-14.8); MEAN CORPUSCULAR HEMOGLOBIN 30 PG (26.0-33.0); MEAN CORPUSCULAR HGB CONC 34 g/dl (31.0-36.0); MEAN CORPUSCULAR VOLUME 87 fL (82-100); PLATELET COUNT (AUTO) 55 K/uL (150-450); RED BLOOD CELL COUNT(AUTO) 2.57 MIL/uL (4.0-5.2); RED CELL DISTRIBUTION WIDTH 20.8 % (11.5-15.0); WHITE BLOOD COUNT (AUTO) 19.3 K/uL (4.3-11.0)
[2023-07-14 01:32] LABS: CALCIUM, SERUM 8.4 mg/dL (8.5-10.1); CREATININE 3.9 mg/dL (0.6-1.3); POTASSIUM 3.4 mmol/L (3.5-5.1)
[2023-07-14 06:30] LABS: BASOPHILS # (AUTO) 0.2 K/uL (0.0-0.2); BASOPHILS % (AUTO) 0.9 % (0.0-2.0); HEMATOCRIT 21 % (33-45); HEMOGLOBIN 7.4 g/dL (11.5-14.8); LYMPHOCYTES # (AUTO) 2.9 K/uL (0.8-4.8); LYMPHOCYTES % (AUTO) 15.3 % (20.0-44.0); MEAN CORPUSCULAR HEMOGLOBIN 30 PG (26.0-33.0); MEAN CORPUSCULAR HGB CONC 35 g/dl (31.0-36.0); MEAN CORPUSCULAR VOLUME 87 fL (82-100); MONOCYTES # (AUTO) 1.7 K/uL (0.1-1.30); MONOCYTES % (AUTO) 8.7 % (2.0-12.0); NEUTROPHILS # (AUTO) 14.5 K/uL (1.8-8.9); NEUTROPHILS % (AUTO) 75.1 % (43.0-81.0); PLATELET COUNT (AUTO) 53 K/uL (150-450); RED BLOOD CELL COUNT(AUTO) 2.44 MIL/uL (4.0-5.2); RED CELL DISTRIBUTION WIDTH 20.9 % (11.5-15.0); WHITE BLOOD COUNT (AUTO) 19.2 K/uL (4.3-11.0)
[2023-07-14 06:40] LABS: CALCIUM, SERUM 8.5 mg/dL (8.5-10.1); CREATININE 3.9 mg/dL (0.6-1.3); MAGNESIUM 1.8 mg/dL (1.8-2.4); PHOSPHORUS 5.4 mg/dL (2.5-4.9); POTASSIUM 3.4 mmol/L (3.5-5.1)
[2023-07-14 06:51] LABS: INR 1.51 (0.91-1.10); PARTIAL THROMBOPLASTIN TIME 55.9 SEC (24.3-34.3); PROTHROMBIN TIME 15.6 SECS (9.2-11.1)
[2023-07-14 06:53] LABS: D-DIMER 6.35 mg/L(FEU (0.17-0.50)
[2023-07-14 06:57] LABS: ANISOCYTOSIS 1+; BAND % (MANUAL) 1 % (0.0-5.0); HYPOCHROMASIA 1+; LYMPHOCYTES % (MANUAL) 18 % (16-48); MONOCYTES % (MANUAL) 8 % (0-11.0); NEUTROPHILS % (MANUAL) 73 (42-76); PLATELET ESTIMATE DECREASED
[2023-07-14 06:58] LABS: TARGET CELLS 1+; TEAR DROP CELLS 1+
[2023-07-14] MEDS: PHENYLEPHRINE 100 MG in IV NS 0.9% 240 ML IV PRN (07:42)
[2023-07-14] MEDS: IV NS 0.9% 500 ML IV ONE (09:04)
[2023-07-14 10:37] LABS: ABG BASE EXCESS -6.7 mmol/L; ABG PH 7.322 (7.350-7.450); ABG PO2 121.1 mmHg (75.0-100.0); ABG TOTAL HEMOGLOBIN 9.2 G/dL (12.0-16.0); AaDO2 554.9 mmHg; COHb 0.3 % (0.5-1.5); MetHb 0.1 % (0.0-1.5); O2Hb 97.6 % (94.0-97.0); PEEP,BG 0 cm H2O; SITE, ABG Right Radial; VT, ABG 450 mL
[2023-07-14 11:11] LABS: FREE LAMBDA LT CHAIN SERUM 63.4 mg/L (5.7-26.3); KAPPA/LAMBDA RATIO SERUM 2.29 (0.26-1.65)
[2023-07-14 11:48] LABS: CALCIUM, SERUM 8.5 mg/dL (8.5-10.1); POTASSIUM 3.6 mmol/L (3.5-5.1)
[2023-07-14 11:56] LABS: HEMATOCRIT 24 % (33-45); HEMOGLOBIN 8.4 g/dL (11.5-14.8); MEAN CORPUSCULAR HEMOGLOBIN 30 PG (26.0-33.0); MEAN CORPUSCULAR HGB CONC 35 g/dl (31.0-36.0); MEAN CORPUSCULAR VOLUME 88 fL (82-100); PLATELET COUNT (AUTO) 53 K/uL (150-450); RED BLOOD CELL COUNT(AUTO) 2.77 MIL/uL (4.0-5.2); RED CELL DISTRIBUTION WIDTH 19.8 % (11.5-15.0)
[2023-07-14 15:23] LABS: HEMATOCRIT 24 % (33-45); HEMOGLOBIN 8.3 g/dL (11.5-14.8); MEAN CORPUSCULAR HEMOGLOBIN 30 PG (26.0-33.0); MEAN CORPUSCULAR HGB CONC 35 g/dl (31.0-36.0); MEAN CORPUSCULAR VOLUME 87 fL (82-100); PLATELET COUNT (AUTO) 53 K/uL (150-450); RED BLOOD CELL COUNT(AUTO) 2.74 MIL/uL (4.0-5.2); RED CELL DISTRIBUTION WIDTH 19.8 % (11.5-15.0); WHITE BLOOD COUNT (AUTO) 19.2 K/uL (4.3-11.0)
[2023-07-14 20:34] LABS: HEMATOCRIT 24 % (33-45); HEMOGLOBIN 8.3 g/dL (11.5-14.8); MEAN CORPUSCULAR HEMOGLOBIN 31 PG (26.0-33.0); MEAN CORPUSCULAR HGB CONC 35 g/dl (31.0-36.0); MEAN CORPUSCULAR VOLUME 87 fL (82-100); PLATELET COUNT (AUTO) 54 K/uL (150-450); RED BLOOD CELL COUNT(AUTO) 2.72 MIL/uL (4.0-5.2); RED CELL DISTRIBUTION WIDTH 19.9 % (11.5-15.0); WHITE BLOOD COUNT (AUTO) 20.2 K/uL (4.3-11.0)
[2023-07-15] VITALS (104 sets, daily range): BP systolic 77–122; BP diastolic 39–59; TEMP 97.3–99.7; O2SAT 88–97
[2023-07-15 02:13] LABS: HEMATOCRIT 24 % (33-45); HEMOGLOBIN 8.4 g/dL (11.5-14.8); MEAN CORPUSCULAR HEMOGLOBIN 31 PG (26.0-33.0); MEAN CORPUSCULAR HGB CONC 35 g/dl (31.0-36.0); MEAN CORPUSCULAR VOLUME 89 fL (82-100); PLATELET COUNT (AUTO) 55 K/uL (150-450); RED BLOOD CELL COUNT(AUTO) 2.73 MIL/uL (4.0-5.2); WHITE BLOOD COUNT (AUTO) 20.3 K/uL (4.3-11.0)
[2023-07-15 02:15] LABS: BASOPHILS # (AUTO) 0.3 K/uL (0.0-0.2); BASOPHILS % (AUTO) 1.4 % (0.0-2.0); EOSINOPHILS % (AUTO) 0.1 % (0.0-6.0); HEMATOCRIT 24 % (33-45); HEMOGLOBIN 8.4 g/dL (11.5-14.8); LYMPHOCYTES % (AUTO) 9.7 % (20.0-44.0); MEAN CORPUSCULAR HEMOGLOBIN 31 PG (26.0-33.0); MEAN CORPUSCULAR HGB CONC 35 g/dl (31.0-36.0); MEAN CORPUSCULAR VOLUME 88 fL (82-100); MONOCYTES # (AUTO) 1.8 K/uL (0.1-1.30); MONOCYTES % (AUTO) 8.8 % (2.0-12.0); NEUTROPHILS # (AUTO) 16.5 K/uL (1.8-8.9); PLATELET COUNT (AUTO) 57 K/uL (150-450); RED BLOOD CELL COUNT(AUTO) 2.74 MIL/uL (4.0-5.2); RED CELL DISTRIBUTION WIDTH 19.7 % (11.5-15.0); WHITE BLOOD COUNT (AUTO) 20.6 K/uL (4.3-11.0)
[2023-07-15 02:31] LABS: CALCIUM, SERUM 8.7 mg/dL (8.5-10.1); CREATININE 4.4 mg/dL (0.6-1.3); MAGNESIUM 1.9 mg/dL (1.8-2.4)
[2023-07-15 02:58] LABS: D-DIMER 4.24 mg/L(FEU (0.17-0.50); INR 1.72 (0.91-1.10); PARTIAL THROMBOPLASTIN TIME 60.8 SEC (24.3-34.3); PROTHROMBIN TIME 17.6 SECS (9.2-11.1)
[2023-07-15 02:59] LABS: LYMPHOCYTES % (MANUAL) 11 % (16-48); MONOCYTES % (MANUAL) 5 % (0-11.0); NEUTROPHILS % (MANUAL) 84 (42-76); PLATELET ESTIMATE DECREASED
[2023-07-15 03:00] LABS: ANISOCYTOSIS 1+; HYPOCHROMASIA 1+; TARGET CELLS 1+
[2023-07-15] MEDS ORDERED: VASOPRESSIN INJ 40 UNIT in IV NS 0.9% 38 ML IV PRN (07:30)
[2023-07-15] MEDS: VASOPRESSIN INJ 40 UNIT in IV NS 0.9% 38 ML IV PRN (08:00)
[2023-07-15 10:26] LABS: HIV-1 p24 ANTIGEN NON REACTIVE (NONREACTIVE); HIV-1/2 ANTIBODY NON REACTIVE (NONREACTIVE)
[2023-07-15 11:40] LABS: HEMATOCRIT 24 % (33-45); HEMOGLOBIN 8.7 g/dL (11.5-14.8); MEAN CORPUSCULAR HEMOGLOBIN 31 PG (26.0-33.0); MEAN CORPUSCULAR HGB CONC 36 g/dl (31.0-36.0); MEAN CORPUSCULAR VOLUME 87 fL (82-100); PLATELET COUNT (AUTO) 57 K/uL (150-450); RED BLOOD CELL COUNT(AUTO) 2.76 MIL/uL (4.0-5.2); RED CELL DISTRIBUTION WIDTH 20.3 % (11.5-15.0); WHITE BLOOD COUNT (AUTO) 20.2 K/uL (4.3-11.0)
[2023-07-15 14:40] LABS: HEMATOCRIT 23 % (33-45); HEMOGLOBIN 8.1 g/dL (11.5-14.8); MEAN CORPUSCULAR HEMOGLOBIN 31 PG (26.0-33.0); MEAN CORPUSCULAR HGB CONC 35 g/dl (31.0-36.0); MEAN CORPUSCULAR VOLUME 88 fL (82-100); PLATELET COUNT (AUTO) 54 K/uL (150-450); RED BLOOD CELL COUNT(AUTO) 2.64 MIL/uL (4.0-5.2); RED CELL DISTRIBUTION WIDTH 19.8 % (11.5-15.0); WHITE BLOOD COUNT (AUTO) 19.5 K/uL (4.3-11.0)
[2023-07-15] MEDS: PHYTONADIONE INJ 10 MG/1 ML AMPUL SQ SCH (16:14)
[2023-07-15] MEDS ORDERED: IV D5W 250 ML IV PRN (16:30)
[2023-07-15] MEDS ORDERED: GLUCAGON,HUMAN RECOMBINANT 1 MG/VIAL VIAL IM ONE (16:30)
[2023-07-15] MEDS: MICAFUNGIN SODIUM 100 MG in IV NS 0.9% 100 ML IV SCH (17:37)
[2023-07-15] MEDS: BLOOD SUGAR DIAGNOSTIC 1 EACH STRIP IN SCH (18:01)
[2023-07-15] MEDS: diphenhydrAMINE HCL 50 MG/ML VIAL IV ONE (18:01)
[2023-07-15] MEDS: MEROPENEM 1 G in IV NS 0.9% 100 ML IV SCH (18:01)
[2023-07-15] MEDS: DEXTROSE 50%-WATER 50 ML DISP.SYRIN IV PRN (18:01)
[2023-07-15] MEDS: IV D5W 1,000 ML IV PRN (23:01)
[2023-07-16] VITALS (97 sets, daily range): BP systolic 81–114; BP diastolic 38–75; TEMP 97.2–98.5; O2SAT 79–95
[2023-07-16 04:39] LABS: CALCIUM, SERUM 8.8 mg/dL (8.5-10.1); CREATININE 4.5 mg/dL (0.6-1.3); MAGNESIUM 1.9 mg/dL (1.8-2.4); PHOSPHORUS 6.1 mg/dL (2.5-4.9); POTASSIUM 3.4 mmol/L (3.5-5.1)
[2023-07-16 04:48] LABS: D-DIMER 3.32 mg/L(FEU (0.17-0.50); INR 1.78 (0.91-1.10); PARTIAL THROMBOPLASTIN TIME 71.2 SEC (24.3-34.3); PROTHROMBIN TIME 18.2 SECS (9.2-11.1)
[2023-07-16 07:23] LABS: ABG BASE EXCESS -10.8 mmol/L; ABG OXYGEN SATURATION 79.3 % (92.0-98.5); ABG PCO2 34.1 mmHg (35.0-45.0); ABG PH 7.266 (7.350-7.450); ABG PO2 48.6 mmHg (75.0-100.0); ABG TOTAL HEMOGLOBIN 8.4 G/dL (12.0-16.0); AaDO2 630.3 mmHg; COHb 0.3 % (0.5-1.5); MetHb 0.5 % (0.0-1.5); O2Hb 78.7 % (94.0-97.0); SITE, ABG A-Line; VENT MODE, BG AC 18 450 100%
[2023-07-16] MEDS: VASOPRESSIN INJ 20 UNIT/ML VIAL ONE (08:12)
[2023-07-16 15:22] LABS: BASOPHILS % (AUTO) 0.3 % (0.0-2.0); EOSINOPHILS # (AUTO) 0.4 K/uL (0.0-0.7); EOSINOPHILS % (AUTO) 1.9 % (0.0-6.0); HEMATOCRIT 22 % (33-45); HEMOGLOBIN 7.7 g/dL (11.5-14.8); LYMPHOCYTES % (AUTO) 5.3 % (20.0-44.0); MEAN CORPUSCULAR HEMOGLOBIN 31 PG (26.0-33.0); MEAN CORPUSCULAR HGB CONC 35 g/dl (31.0-36.0); MEAN CORPUSCULAR VOLUME 88 fL (82-100); MONOCYTES # (AUTO) 0.7 K/uL (0.1-1.30); MONOCYTES % (AUTO) 3.9 % (2.0-12.0); NEUTROPHILS # (AUTO) 16.8 K/uL (1.8-8.9); NEUTROPHILS % (AUTO) 88.6 % (43.0-81.0); RED BLOOD CELL COUNT(AUTO) 2.47 MIL/uL (4.0-5.2); RED CELL DISTRIBUTION WIDTH 20.1 % (11.5-15.0)
[2023-07-16 15:56] LABS: PLATELET COUNT (AUTO) 44 K/uL (150-450)
[2023-07-16 16:52] LABS: ANISOCYTOSIS 1+; BAND % (MANUAL) 3 % (0.0-5.0); LYMPHOCYTES % (MANUAL) 8 % (16-48); MONOCYTES % (MANUAL) 3 % (0-11.0); NEUTROPHILS % (MANUAL) 86 (42-76); PLATELET ESTIMATE DECREASED
[2023-07-16 16:53] LABS: TARGET CELLS 1+; TEAR DROP CELLS RARE
[2023-07-17] VITALS (96 sets, daily range): BP systolic 71–106; BP diastolic 36–63; TEMP 96–98.5; O2SAT 78–88
[2023-07-17 05:31] LABS: BASOPHILS # (AUTO) 0.1 K/uL (0.0-0.2); BASOPHILS % (AUTO) 0.5 % (0.0-2.0); EOSINOPHILS # (AUTO) 0.4 K/uL (0.0-0.7); EOSINOPHILS % (AUTO) 2.4 % (0.0-6.0); HEMATOCRIT 23 % (33-45); HEMOGLOBIN 8.3 g/dL (11.5-14.8); LYMPHOCYTES # (AUTO) 1.1 K/uL (0.8-4.8); LYMPHOCYTES % (AUTO) 6.2 % (20.0-44.0); MEAN CORPUSCULAR HEMOGLOBIN 33 PG (26.0-33.0); MEAN CORPUSCULAR HGB CONC 37 g/dl (31.0-36.0); MEAN CORPUSCULAR VOLUME 89 fL (82-100); MONOCYTES # (AUTO) 0.4 K/uL (0.1-1.30); MONOCYTES % (AUTO) 2.2 % (2.0-12.0); NEUTROPHILS # (AUTO) 15.8 K/uL (1.8-8.9); NEUTROPHILS % (AUTO) 88.7 % (43.0-81.0); RED BLOOD CELL COUNT(AUTO) 2.52 MIL/uL (4.0-5.2); RED CELL DISTRIBUTION WIDTH 20.3 % (11.5-15.0); WHITE BLOOD COUNT (AUTO) 17.8 K/uL (4.3-11.0)
[2023-07-17 05:33] LABS: PLATELET COUNT (AUTO) 40 K/uL (150-450)
[2023-07-17 05:34] LABS: CALCIUM, SERUM 8.6 mg/dL (8.5-10.1); CREATININE 4.6 mg/dL (0.6-1.3); POTASSIUM 3.8 mmol/L (3.5-5.1)
[2023-07-17 05:42] LABS: LACTIC ACID 3.5 mmol/L (0.4-2.0)
[2023-07-17 05:48] LABS: D-DIMER 3.87 mg/L(FEU (0.17-0.50); INR 1.91 (0.91-1.10); PROTHROMBIN TIME 19.4 SECS (9.2-11.1)
[2023-07-17 05:50] LABS: PARTIAL THROMBOPLASTIN TIME 76.9 SEC (24.3-34.3)
[2023-07-17 06:26] LABS: ANISOCYTOSIS 1+; BASOPHILS % (MANUAL) 0 % (0.0-2.0); EOSINOPHILS % (MANUAL) 4 % (0-4); HYPOCHROMASIA 1+; LYMPHOCYTES % (MANUAL) 9 % (16-48); MONOCYTES % (MANUAL) 5 % (0-11.0); NEUTROPHILS % (MANUAL) 82 (42-76); PLATELET ESTIMATE DECREASED
[2023-07-17 06:27] LABS: OVALOCYTES 1+; TEAR DROP CELLS 1+
[2023-07-17 08:12] LABS: ABG BASE EXCESS -15.9 mmol/L; ABG OXYGEN SATURATION 84.7 % (92.0-98.5); ABG PCO2 38.7 mmHg (35.0-45.0); ABG PH 7.119 (7.350-7.450); ABG PO2 59.2 mmHg (75.0-100.0); AaDO2 615.1 mmHg; COHb 0.3 % (0.5-1.5); MetHb 0.2 % (0.0-1.5); O2Hb 84.3 % (94.0-97.0); PEEP,BG 14 cm H2O; SITE, ABG A-Line; VT, ABG 450 mL
[2023-07-17] MEDS: SODIUM BICARBONATE SYR 50 MEQ/50 ML DISP.SYRIN IV ONE (09:05)
[2023-07-17] MEDS: HYDROCORTISONE SOD SUCCINATE 100 MG/2 ML VIAL IV SCH (09:13)
[2023-07-17 09:16] LABS: BILIRUBIN,DIRECT 6.2 mg/dL (0.0-0.2)
[2023-07-17] MEDS: Sodium Bicarbonate 150 MEQ in IV D5W 1,000 ML IV SCH (09:30)
[2023-07-17 09:50] LABS: LACTIC ACID REFLEX 3.6 mmol/L (0.4-1.9)
[2023-07-17] MEDS: MIDAZOLAM HCL 100 MG in IV NS 0.9% 80 ML IV PRN (10:51)
[2023-07-17 11:19] LABS: ABG OXYGEN SATURATION 83.5 % (92.0-98.5); ABG PCO2 35.6 mmHg (35.0-45.0); ABG PH 7.208 (7.350-7.450); ABG PO2 52.8 mmHg (75.0-100.0); ABG TOTAL HEMOGLOBIN 8.2 G/dL (12.0-16.0); AaDO2 616.5 mmHg; COHb 0.3 % (0.5-1.5); MetHb 0.3 % (0.0-1.5); PEEP,BG 14 cm H2O; SITE, ABG A-Line; VENT MODE, BG AC 100 %; VT, ABG 450 mL
[2023-07-17] MEDS: PHYTONADIONE INJ 10 MG/1 ML AMPUL SQ ONE (12:30)
[2023-07-17] MEDS: IV NS 0.9% 250 ML IV PRN (14:10)
[2023-07-17] MEDS ORDERED: DEXTROSE 50%-WATER 50 ML DISP.SYRIN IV PRN (15:30)
[2023-07-17] MEDS: BLOOD SUGAR DIAGNOSTIC 1 EACH STRIP IN SCH (17:42)
[2023-07-17] MEDS: IV Sodium Chloride 3% 500 ML 500 ML IV SCH (19:33)
[2023-07-18] VITALS (95 sets, daily range): BP systolic 81–116; BP diastolic 38–71; TEMP 97.2–97.8; O2SAT 80–88
[2023-07-18 05:18] LABS: BASOPHILS # (AUTO) 0.1 K/uL (0.0-0.2); BASOPHILS % (AUTO) 0.4 % (0.0-2.0); EOSINOPHILS # (AUTO) 0.5 K/uL (0.0-0.7); EOSINOPHILS % (AUTO) 2.9 % (0.0-6.0); HEMATOCRIT 23 % (33-45); HEMOGLOBIN 8.6 g/dL (11.5-14.8); LYMPHOCYTES # (AUTO) 1.1 K/uL (0.8-4.8); LYMPHOCYTES % (AUTO) 6.2 % (20.0-44.0); MEAN CORPUSCULAR HEMOGLOBIN 34 PG (26.0-33.0); MEAN CORPUSCULAR HGB CONC 38 g/dl (31.0-36.0); MEAN CORPUSCULAR VOLUME 90 fL (82-100); MONOCYTES # (AUTO) 0.7 K/uL (0.1-1.30); MONOCYTES % (AUTO) 3.8 % (2.0-12.0); NEUTROPHILS # (AUTO) 15.3 K/uL (1.8-8.9); NEUTROPHILS % (AUTO) 86.7 % (43.0-81.0); RED BLOOD CELL COUNT(AUTO) 2.53 MIL/uL (4.0-5.2); RED CELL DISTRIBUTION WIDTH 19.9 % (11.5-15.0); WHITE BLOOD COUNT (AUTO) 17.7 K/uL (4.3-11.0)
[2023-07-18 05:24] LABS: CALCIUM, SERUM 7.7 mg/dL (8.5-10.1); CREATININE 4.2 mg/dL (0.6-1.3); POTASSIUM 3.2 mmol/L (3.5-5.1)
[2023-07-18 05:43] LABS: PLATELET COUNT (AUTO) 28 K/uL (150-450)
[2023-07-18 09:04] LABS: INR 1.91 (0.91-1.10); PARTIAL THROMBOPLASTIN TIME 70.1 SEC (24.3-34.3); PROTHROMBIN TIME 19.4 SECS (9.2-11.1)
[2023-07-18 09:06] LABS: D-DIMER 5.77 mg/L(FEU (0.17-0.50)
[2023-07-18 09:35] LABS: ABG BASE EXCESS -8.6 mmol/L; ABG OXYGEN SATURATION 85.3 % (92.0-98.5); ABG PCO2 39.6 mmHg (35.0-45.0); ABG PH 7.268 (7.350-7.450); ABG PO2 56.4 mmHg (75.0-100.0); ABG TOTAL HEMOGLOBIN 8.9 G/dL (12.0-16.0); COHb 0.3 % (0.5-1.5); MetHb 0.3 % (0.0-1.5); O2Hb 84.8 % (94.0-97.0); SITE, ABG A-Line
[2023-07-18] MEDS: IV Sodium Chloride 3% 500 ML 500 ML IV SCH (11:00)
[2023-07-18 11:40] LABS: ANISOCYTOSIS 1+; BAND % (MANUAL) 6 % (0.0-5.0); BASOPHILS % (MANUAL) 0 % (0.0-2.0); EOSINOPHILS % (MANUAL) 0 % (0-4); LYMPHOCYTES % (MANUAL) 6 % (16-48); MONOCYTES % (MANUAL) 5 % (0-11.0); NEUTROPHILS % (MANUAL) 83 (42-76); PLATELET ESTIMATE DECREASED; TEAR DROP CELLS 1+
[2023-07-18] MEDS: FUROSEMIDE 100 MG/10 ML VIAL IV ONE (15:21)
[2023-07-18] MEDS: POTASSIUM CL. PREMIX PERIPHER. 50 ML IV SCH (15:25)
[2023-07-18 16:49] LABS: ALBUMIN 1.5 g/dL (3.4-5.0); BILIRUBIN,DIRECT 6.1 mg/dL (0.0-0.2); BILIRUBIN,TOTAL 8.9 mg/dL (0.2-1.0); TOTAL PROTEIN, SERUM 5.3 g/dL (6.4-8.2)
[2023-07-19] VITALS (94 sets, daily range): BP systolic 91–125; BP diastolic 33–73; TEMP 94.6–100.1; O2SAT 83–98
[2023-07-19 04:16] LABS: BASOPHILS % (AUTO) 0.2 % (0.0-2.0); EOSINOPHILS % (AUTO) 0.2 % (0.0-6.0); HEMATOCRIT 23 % (33-45); HEMOGLOBIN 8.2 g/dL (11.5-14.8); LYMPHOCYTES # (AUTO) 0.6 K/uL (0.8-4.8); LYMPHOCYTES % (AUTO) 2.7 % (20.0-44.0); MEAN CORPUSCULAR HEMOGLOBIN 31 PG (26.0-33.0); MEAN CORPUSCULAR HGB CONC 36 g/dl (31.0-36.0); MEAN CORPUSCULAR VOLUME 88 fL (82-100); MONOCYTES # (AUTO) 0.7 K/uL (0.1-1.30); MONOCYTES % (AUTO) 3.1 % (2.0-12.0); NEUTROPHILS # (AUTO) 20.5 K/uL (1.8-8.9); NEUTROPHILS % (AUTO) 93.8 % (43.0-81.0); RED BLOOD CELL COUNT(AUTO) 2.63 MIL/uL (4.0-5.2); RED CELL DISTRIBUTION WIDTH 20.3 % (11.5-15.0); WHITE BLOOD COUNT (AUTO) 21.9 K/uL (4.3-11.0)
[2023-07-19 04:26] LABS: CALCIUM, SERUM 7.6 mg/dL (8.5-10.1); CREATININE 4.1 mg/dL (0.6-1.3); POTASSIUM 3.3 mmol/L (3.5-5.1)
[2023-07-19 04:40] LABS: PLATELET COUNT (AUTO) 27 K/uL (150-450)
[2023-07-19 04:54] LABS: INR 1.95 (0.91-1.10); PARTIAL THROMBOPLASTIN TIME 74.6 SEC (24.3-34.3); PROTHROMBIN TIME 19.8 SECS (9.2-11.1)
[2023-07-19 04:56] LABS: D-DIMER 10.22 mg/L(FEU (0.17-0.50)
[2023-07-19 08:27] LABS: ABG BASE EXCESS -7.6 mmol/L; ABG OXYGEN SATURATION 83.7 % (92.0-98.5); ABG PCO2 35.7 mmHg (35.0-45.0); ABG PH 7.315 (7.350-7.450); ABG PO2 51.8 mmHg (75.0-100.0); ABG TOTAL HEMOGLOBIN 11.2 G/dL (12.0-16.0); AaDO2 625.5 mmHg; COHb 0.3 % (0.5-1.5); MetHb 0.1 % (0.0-1.5); O2Hb 83.4 % (94.0-97.0); SITE, ABG A-Line
[2023-07-19] MEDS ORDERED: LORAZEPAM 1 MG TABLET GT PRN (11:04)
[2023-07-19] MEDS: CHLORDIAZEPOXIDE HCL 25 MG CAPSULE GT SCH (11:04)
[2023-07-19 11:25] LABS: ANISOCYTOSIS 1+; BAND % (MANUAL) 7 % (0.0-5.0); BASOPHILS % (MANUAL) 0 % (0.0-2.0); EOSINOPHILS % (MANUAL) 0 % (0-4); HYPOCHROMASIA 1+; LYMPHOCYTES % (MANUAL) 5 % (16-48); MONOCYTES % (MANUAL) 4 % (0-11.0); NEUTROPHILS % (MANUAL) 84 (42-76); OVALOCYTES 1+; PLATELET ESTIMATE DECREASED; TARGET CELLS 1+; TEAR DROP CELLS 1+
[2023-07-19] MEDS ORDERED: ACETAMINOPHEN 650 MG/20.3 ML UDC GT PRN (11:30)
[2023-07-19] MEDS: NEPRO 1,000 ML BOTTLE GT PRN (12:05)
[2023-07-19] MEDS: MIDODRINE HCL (5MG) 5 MG TABLET GT SCH (12:25)
[2023-07-19 13:22] LABS: HEMOGLOBIN 7.8 g/dL (11.5-14.8)
[2023-07-19] MEDS: diphenhydrAMINE HCL 50 MG/ML VIAL IV ONE (17:30)
[2023-07-20] VITALS (101 sets, daily range): BP systolic 96–124; BP diastolic 13–82; TEMP 96.5–99.5; O2SAT 72–97
[2023-07-20 05:22] LABS: BASOPHILS # (AUTO) 0.2 K/uL (0.0-0.2); EOSINOPHILS % (AUTO) 0.1 % (0.0-6.0); HEMATOCRIT 26 % (33-45); HEMOGLOBIN 8.9 g/dL (11.5-14.8); LYMPHOCYTES # (AUTO) 0.9 K/uL (0.8-4.8); LYMPHOCYTES % (AUTO) 3.4 % (20.0-44.0); MEAN CORPUSCULAR HEMOGLOBIN 30 PG (26.0-33.0); MEAN CORPUSCULAR HGB CONC 34 g/dl (31.0-36.0); MEAN CORPUSCULAR VOLUME 87 fL (82-100); MONOCYTES # (AUTO) 0.3 K/uL (0.1-1.30); MONOCYTES % (AUTO) 1.1 % (2.0-12.0); NEUTROPHILS # (AUTO) 23.9 K/uL (1.8-8.9); NEUTROPHILS % (AUTO) 94.4 % (43.0-81.0); RED CELL DISTRIBUTION WIDTH 19.5 % (11.5-15.0); WHITE BLOOD COUNT (AUTO) 25.3 K/uL (4.3-11.0)
[2023-07-20 05:29] LABS: PLATELET COUNT (AUTO) 26 K/uL (150-450)
[2023-07-20 05:33] LABS: CALCIUM, SERUM 7.6 mg/dL (8.5-10.1); CREATININE 4.1 mg/dL (0.6-1.3)
[2023-07-20 05:48] LABS: INR 1.65 (0.91-1.10); PARTIAL THROMBOPLASTIN TIME 55.7 SEC (24.3-34.3); PROTHROMBIN TIME 16.9 SECS (9.2-11.1)
[2023-07-20 05:49] LABS: D-DIMER 21.56 mg/L(FEU (0.17-0.50)
[2023-07-20 08:05] LABS: ABG BASE EXCESS -5.2 mmol/L; ABG OXYGEN SATURATION 80.5 % (92.0-98.5); ABG PCO2 37.2 mmHg (35.0-45.0); ABG PH 7.346 (7.350-7.450); ABG PO2 47.7 mmHg (75.0-100.0); AaDO2 628.1 mmHg; COHb 0.2 % (0.5-1.5); MetHb 0.4 % (0.0-1.5); SITE, ABG A-Line
[2023-07-20] MEDS: FOLIC ACID 1 MG TABLET GT SCH (08:39)
[2023-07-20] MEDS: MULTIVIT W/MINERALS 1 TAB TABLET GT SCH (08:40)
[2023-07-20] MEDS: THIAMINE HCL 100 MG TABLET GT SCH (08:40)
[2023-07-20 10:30] LABS: ANISOCYTOSIS 1+; BASOPHILS % (MANUAL) 0 % (0.0-2.0); EOSINOPHILS % (MANUAL) 0 % (0-4); LYMPHOCYTES % (MANUAL) 11 % (16-48); MONOCYTES % (MANUAL) 5 % (0-11.0); NEUTROPHILS % (MANUAL) 84 (42-76); OVALOCYTES 1+; PLATELET ESTIMATE DECREASED; TARGET CELLS 1+
[2023-07-20] MEDS: PANTOPRAZOLE 40 MG/PACK PACK GT SCH (21:06)
[2023-07-21] VITALS (90 sets, daily range): BP systolic 48–128; BP diastolic 13–77; TEMP 98–100.3; O2SAT 73–87
[2023-07-21 04:35] LABS: BASOPHILS # (AUTO) 0.1 K/uL (0.0-0.2); BASOPHILS % (AUTO) 0.2 % (0.0-2.0); HEMATOCRIT 25 % (33-45); HEMOGLOBIN 8.8 g/dL (11.5-14.8); LYMPHOCYTES # (AUTO) 0.5 K/uL (0.8-4.8); LYMPHOCYTES % (AUTO) 1.9 % (20.0-44.0); MEAN CORPUSCULAR HEMOGLOBIN 30 PG (26.0-33.0); MEAN CORPUSCULAR HGB CONC 35 g/dl (31.0-36.0); MEAN CORPUSCULAR VOLUME 87 fL (82-100); MONOCYTES # (AUTO) 0.5 K/uL (0.1-1.30); MONOCYTES % (AUTO) 1.7 % (2.0-12.0); NEUTROPHILS # (AUTO) 28.1 K/uL (1.8-8.9); NEUTROPHILS % (AUTO) 96.2 % (43.0-81.0); PLATELET COUNT (AUTO) 64 K/uL (150-450); RED BLOOD CELL COUNT(AUTO) 2.91 MIL/uL (4.0-5.2); RED CELL DISTRIBUTION WIDTH 19.8 % (11.5-15.0); WHITE BLOOD COUNT (AUTO) 29.2 K/uL (4.3-11.0)
[2023-07-21 04:48] LABS: CALCIUM, SERUM 7.5 mg/dL (8.5-10.1); CREATININE 3.8 mg/dL (0.6-1.3); MAGNESIUM 1.3 mg/dL (1.8-2.4); PHOSPHORUS 6.5 mg/dL (2.5-4.9)
[2023-07-21 04:50] LABS: POTASSIUM 2.8 mmol/L (3.5-5.1)
[2023-07-21 04:52] LABS: FIBRINOGEN ACTIVITY 271 Mg/dL (213-485); INR 1.79 (0.91-1.10); PROTHROMBIN TIME 18.3 SECS (9.2-11.1)
[2023-07-21 04:57] LABS: D-DIMER > 35.20 mg/L(FEU (0.17-0.50)
[2023-07-21] MEDS: POTASSIUM CL. PREMIX PERIPHER. 50 ML IV SCH (06:25)
[2023-07-21 10:37] LABS: ANISOCYTOSIS 1+; BAND % (MANUAL) 6 % (0.0-5.0); BASOPHILS % (MANUAL) 0 % (0.0-2.0); EOSINOPHILS % (MANUAL) 0 % (0-4); HYPOCHROMASIA 1+; LYMPHOCYTES % (MANUAL) 7 % (16-48); MONOCYTES % (MANUAL) 3 % (0-11.0); NEUTROPHILS % (MANUAL) 84 (42-76); PLATELET ESTIMATE DECREASED; TARGET CELLS 1+
[2023-07-21] MEDS: Magnesium 1GM/D5W 100ML PREMIX 100 ML IV SCH (10:42)
[2023-07-21 11:13] LABS: ABG BASE EXCESS -4.6 mmol/L; ABG OXYGEN SATURATION 78.4 % (92.0-98.5); ABG PO2 45.1 mmHg (75.0-100.0); ABG TOTAL HEMOGLOBIN 9.7 G/dL (12.0-16.0); AaDO2 629.9 mmHg; COHb 0.3 % (0.5-1.5); MetHb 0.2 % (0.0-1.5); PEEP,BG 15 cm H2O; SITE, ABG A-Line; VT, ABG 450 mL
[2023-07-21] MEDS: diphenhydrAMINE HCL 50 MG/ML VIAL IV ONE (16:58)
[2023-07-21] MEDS: BLOOD SUGAR DIAGNOSTIC 1 EACH STRIP IN SCH (18:26)
[2023-07-21] MEDS: INSULIN REGULAR, HUMAN 100 UNIT/ML 3 ML VIAL SQ PRN (18:34)
[2023-07-22] VITALS (59 sets, daily range): BP systolic 115–128; BP diastolic 64–76; TEMP 98.4–98.8; O2SAT 49–88
[2023-07-22] MEDS: VANCOMYCIN 750 MG in IV D5W 250 ML IV SCH (02:11)
[2023-07-22 04:10] LABS: BASOPHILS % (AUTO) 0.1 % (0.0-2.0); EOSINOPHILS % (AUTO) 0.1 % (0.0-6.0); HEMATOCRIT 24 % (33-45); HEMOGLOBIN 8.2 g/dL (11.5-14.8); LYMPHOCYTES # (AUTO) 0.7 K/uL (0.8-4.8); LYMPHOCYTES % (AUTO) 2.9 % (20.0-44.0); MEAN CORPUSCULAR HEMOGLOBIN 30 PG (26.0-33.0); MEAN CORPUSCULAR HGB CONC 34 g/dl (31.0-36.0); MEAN CORPUSCULAR VOLUME 88 fL (82-100); MONOCYTES # (AUTO) 0.6 K/uL (0.1-1.30); MONOCYTES % (AUTO) 2.8 % (2.0-12.0); NEUTROPHILS # (AUTO) 21.4 K/uL (1.8-8.9); NEUTROPHILS % (AUTO) 94.1 % (43.0-81.0); PLATELET COUNT (AUTO) 53 K/uL (150-450); RED BLOOD CELL COUNT(AUTO) 2.71 MIL/uL (4.0-5.2); RED CELL DISTRIBUTION WIDTH 19.5 % (11.5-15.0); WHITE BLOOD COUNT (AUTO) 22.8 K/uL (4.3-11.0)
[2023-07-22 04:18] LABS: CREATININE 3.8 mg/dL (0.6-1.3); MAGNESIUM 1.6 mg/dL (1.8-2.4); PHOSPHORUS 6.6 mg/dL (2.5-4.9); POTASSIUM 3.3 mmol/L (3.5-5.1)
[2023-07-22 04:29] LABS: D-DIMER > 35.20 mg/L(FEU (0.17-0.50); FIBRINOGEN ACTIVITY 261 Mg/dL (213-485); INR 1.68 (0.91-1.10); PARTIAL THROMBOPLASTIN TIME 52.9 SEC (24.3-34.3); PROTHROMBIN TIME 17.2 SECS (9.2-11.1)
[2023-07-22 04:56] LABS: BAND % (MANUAL) 1 % (0.0-5.0); LYMPHOCYTES % (MANUAL) 5 % (16-48); MONOCYTES % (MANUAL) 1 % (0-11.0); NEUTROPHILS % (MANUAL) 93 (42-76); PLATELET ESTIMATE DECREASED
[2023-07-22 04:57] LABS: ANISOCYTOSIS 2+; TARGET CELLS 2+
[2023-07-22 09:23] LABS: *IFE IMMUNOFIXATION RESULT Abnormal
[2023-07-22] MEDS: MAGNESIUM OXIDE 400 MG TABLET GT ONE (10:35)
[2023-07-22] MEDS: NEPRO 1,000 ML BOTTLE GT PRN (10:36)
[2023-07-22] MEDS ORDERED: IV LR 1000 ML 1,000 ML IV PRN (11:00)
[2023-07-22] MEDS: POTASSIUM CHLORIDE 20 MEQ POWDER PACKET GT ONE (16:59)
[2023-07-22] MEDS: MIDAZOLAM HCL 200 MG in IV NS 0.9% 60 ML IV PRN (22:06)
[2023-07-23] VITALS (75 sets, daily range): BP systolic 42–125; BP diastolic 15–87; TEMP 98.5–99.2; O2SAT 37–85
[2023-07-23 03:28] LABS: BASOPHILS % (AUTO) 0.2 % (0.0-2.0); EOSINOPHILS % (AUTO) 0.1 % (0.0-6.0); HEMATOCRIT 24 % (33-45); HEMOGLOBIN 8.3 g/dL (11.5-14.8); LYMPHOCYTES # (AUTO) 0.7 K/uL (0.8-4.8); LYMPHOCYTES % (AUTO) 2.8 % (20.0-44.0); MEAN CORPUSCULAR HEMOGLOBIN 30 PG (26.0-33.0); MEAN CORPUSCULAR HGB CONC 34 g/dl (31.0-36.0); MEAN CORPUSCULAR VOLUME 88 fL (82-100); MONOCYTES # (AUTO) 0.6 K/uL (0.1-1.30); MONOCYTES % (AUTO) 2.3 % (2.0-12.0); NEUTROPHILS # (AUTO) 24.2 K/uL (1.8-8.9); NEUTROPHILS % (AUTO) 94.6 % (43.0-81.0); RED BLOOD CELL COUNT(AUTO) 2.76 MIL/uL (4.0-5.2); RED CELL DISTRIBUTION WIDTH 19.5 % (11.5-15.0); WHITE BLOOD COUNT (AUTO) 25.6 K/uL (4.3-11.0)
[2023-07-23 03:35] LABS: PLATELET COUNT (AUTO) 48 K/uL (150-450)
[2023-07-23 03:41] LABS: CALCIUM, SERUM 8.3 mg/dL (8.5-10.1); CREATININE 3.9 mg/dL (0.6-1.3); MAGNESIUM 1.8 mg/dL (1.8-2.4); PHOSPHORUS 7.6 mg/dL (2.5-4.9); POTASSIUM 3.5 mmol/L (3.5-5.1)
[2023-07-23 03:50] LABS: FIBRINOGEN ACTIVITY 205 Mg/dL (213-485); INR 1.83 (0.91-1.10); PARTIAL THROMBOPLASTIN TIME 50.8 SEC (24.3-34.3); PROTHROMBIN TIME 18.6 SECS (9.2-11.1)
[2023-07-23 04:11] LABS: D-DIMER > 35.20 mg/L(FEU (0.17-0.50)
[2023-07-23 05:35] LABS: ANISOCYTOSIS 1+; BAND % (MANUAL) 5 % (0.0-5.0); BASOPHILS % (MANUAL) 0 % (0.0-2.0); EOSINOPHILS % (MANUAL) 0 % (0-4); HYPOCHROMASIA 1+; LYMPHOCYTES % (MANUAL) 6 % (16-48); MONOCYTES % (MANUAL) 5 % (0-11.0); NEUTROPHILS % (MANUAL) 84 (42-76); PLATELET ESTIMATE DECREASED
[2023-07-23 05:36] LABS: OVALOCYTES 1+; TARGET CELLS 1+
[2023-07-23 08:12] LABS: *ANA ANTI-CENTROMERE B AB <0.2 AI (0.0-0.9); *ANA ANTI-DNA(DS) AB, QN 2 IU/mL (0-9); *ANA ANTI-JO-1 <0.2 AI (0.0-0.9); *ANA ANTICHROMATIN ANTIBODY <0.2 AI (0.0-0.9); *ANA RNP ANTIBODIES 0.2 AI (0.0-0.9); *ANA SJOGREN'S ANTI-SS-A <0.2 AI (0.0-0.9); *ANA SJOGREN'S ANTI-SS-B <0.2 AI (0.0-0.9); *ANAANTI-SCLERODERMA-70 AB <0.2 AI (0.0-0.9); *ANASMITH AB <0.2 AI (0.0-0.9)
[2023-07-23 09:30] LABS: ABG BASE EXCESS -1.3 mmol/L; ABG OXYGEN SATURATION 82.8 % (92.0-98.5); ABG PCO2 45.2 mmHg (35.0-45.0); ABG PH 7.349 (7.350-7.450); ABG PO2 50.6 mmHg (75.0-100.0); ABG TOTAL HEMOGLOBIN 9.3 G/dL (12.0-16.0); AaDO2 617.2 mmHg; COHb 0.3 % (0.5-1.5); MetHb 0.3 % (0.0-1.5); O2Hb 82.3 % (94.0-97.0); SITE, ABG Right Radial
[2023-07-23] MEDS: PANTOPRAZOLE 40 MG VIAL IV SCH (21:31)
[2023-07-24] VITALS (93 sets, daily range): BP systolic 104–120; BP diastolic 57–72; TEMP 97.6–99; O2SAT 9–77
[2023-07-24 04:44] LABS: BASOPHILS # (AUTO) 0.1 K/uL (0.0-0.2); BASOPHILS % (AUTO) 0.2 % (0.0-2.0); HEMATOCRIT 24 % (33-45); HEMOGLOBIN 8.4 g/dL (11.5-14.8); LYMPHOCYTES # (AUTO) 0.7 K/uL (0.8-4.8); LYMPHOCYTES % (AUTO) 2.7 % (20.0-44.0); MEAN CORPUSCULAR HEMOGLOBIN 30 PG (26.0-33.0); MEAN CORPUSCULAR HGB CONC 34 g/dl (31.0-36.0); MEAN CORPUSCULAR VOLUME 88 fL (82-100); MONOCYTES # (AUTO) 0.6 K/uL (0.1-1.30); MONOCYTES % (AUTO) 2.3 % (2.0-12.0); NEUTROPHILS # (AUTO) 24.6 K/uL (1.8-8.9); NEUTROPHILS % (AUTO) 94.8 % (43.0-81.0); RED BLOOD CELL COUNT(AUTO) 2.77 MIL/uL (4.0-5.2); RED CELL DISTRIBUTION WIDTH 19.9 % (11.5-15.0); WHITE BLOOD COUNT (AUTO) 25.9 K/uL (4.3-11.0)
[2023-07-24 04:52] LABS: PLATELET COUNT (AUTO) 47 K/uL (150-450)
[2023-07-24 04:55] LABS: CALCIUM, SERUM 8.1 mg/dL (8.5-10.1); POTASSIUM 3.9 mmol/L (3.5-5.1)
[2023-07-24 05:01] LABS: IRON, SERUM 22 ug/dl (50-175); TOTAL IRON BINDING CAPACITY 113 ug/dl (250-450)
[2023-07-24 05:32] LABS: FERRITIN 1628 ng/mL (8-388)
[2023-07-24] MEDS: PHENYLEPHRINE 10 MG/ML VIAL ONE (08:36)
[2023-07-24 11:27] LABS: BAND % (MANUAL) 6 % (0.0-5.0); BASOPHILS % (MANUAL) 0 % (0.0-2.0); EOSINOPHILS % (MANUAL) 0 % (0-4); LYMPHOCYTES % (MANUAL) 8 % (16-48); MONOCYTES % (MANUAL) 4 % (0-11.0); NEUTROPHILS % (MANUAL) 82 (42-76)
[2023-07-24 11:28] LABS: ANISOCYTOSIS 1+; HYPOCHROMASIA 1+; PLATELET ESTIMATE DECREASED
[2023-07-24] MEDS: Sodium Bicarbonate 150 MEQ in IV D5W 1,000 ML IV SCH (11:56)
[2023-07-25] VITALS (94 sets, daily range): BP systolic 85–111; BP diastolic 51–63; TEMP 97.2–98; O2SAT 6–24
[2023-07-25 04:49] LABS: CALCIUM, SERUM 7.5 mg/dL (8.5-10.1); CREATININE 4.1 mg/dL (0.6-1.3); POTASSIUM 4.2 mmol/L (3.5-5.1)
[2023-07-25 05:10] LABS: BASOPHILS # (AUTO) 0.1 K/uL (0.0-0.2); BASOPHILS % (AUTO) 0.2 % (0.0-2.0); EOSINOPHILS % (AUTO) 0.1 % (0.0-6.0); HEMATOCRIT 24 % (33-45); HEMOGLOBIN 8.1 g/dL (11.5-14.8); LYMPHOCYTES # (AUTO) 0.7 K/uL (0.8-4.8); LYMPHOCYTES % (AUTO) 2.7 % (20.0-44.0); MEAN CORPUSCULAR HEMOGLOBIN 30 PG (26.0-33.0); MEAN CORPUSCULAR HGB CONC 34 g/dl (31.0-36.0); MEAN CORPUSCULAR VOLUME 89 fL (82-100); MONOCYTES # (AUTO) 0.6 K/uL (0.1-1.30); MONOCYTES % (AUTO) 2.2 % (2.0-12.0); NEUTROPHILS # (AUTO) 24.5 K/uL (1.8-8.9); NEUTROPHILS % (AUTO) 94.8 % (43.0-81.0); RED BLOOD CELL COUNT(AUTO) 2.69 MIL/uL (4.0-5.2); RED CELL DISTRIBUTION WIDTH 20.4 % (11.5-15.0); WHITE BLOOD COUNT (AUTO) 25.8 K/uL (4.3-11.0)
[2023-07-25 05:11] LABS: PLATELET COUNT (AUTO) 45 K/uL (150-450)
[2023-07-25 05:33] LABS: FIBRINOGEN ACTIVITY 131 Mg/dL (213-485); INR 2.09 (0.91-1.10); PARTIAL THROMBOPLASTIN TIME 58.1 SEC (24.3-34.3); PROTHROMBIN TIME 21.1 SECS (9.2-11.1)
[2023-07-25 06:13] LABS: BAND % (MANUAL) 1 % (0.0-5.0); LYMPHOCYTES % (MANUAL) 4 % (16-48); MONOCYTES % (MANUAL) 8 % (0-11.0); NEUTROPHILS % (MANUAL) 87 (42-76); PLATELET ESTIMATE DECREASED
[2023-07-25 06:15] LABS: ANISOCYTOSIS 1+; TARGET CELLS 2+
[2023-07-25 08:38] LABS: ABG BASE EXCESS -5.7 mmol/L; ABG OXYGEN SATURATION 82.9 % (92.0-98.5); ABG PCO2 46.8 mmHg (35.0-45.0); ABG PH 7.269 (7.350-7.450); ABG PO2 55.3 mmHg (75.0-100.0); AaDO2 610.9 mmHg; COHb 0.3 % (0.5-1.5); MetHb 0.4 % (0.0-1.5); O2Hb 82.3 % (94.0-97.0); SITE, ABG A-Line
[2023-07-25 10:23] LABS: D-DIMER > 35.20 mg/L(FEU (0.17-0.50)
[2023-07-25] MEDS ORDERED: VANCOMYCIN 750 MG in IV D5W 250 ML IV SCH ×2 (14:00→18:00)
[2023-07-25] MEDS ORDERED: diphenhydrAMINE HCL 50 MG/ML VIAL IV ONE (14:30)
[2023-07-25] MEDS: VANCOMYCIN 750 MG in IV D5W 250 ML IV SCH (17:05)
[2023-07-26] VITALS (95 sets, daily range): BP systolic 94–108; BP diastolic 48–59; TEMP 96.7–98; O2SAT 6–36
[2023-07-26 04:00] LABS: CALCIUM, SERUM 7.1 mg/dL (8.5-10.1); POTASSIUM 4.3 mmol/L (3.5-5.1)
[2023-07-26 04:09] LABS: BASOPHILS # (AUTO) 0.1 K/uL (0.0-0.2); BASOPHILS % (AUTO) 0.2 % (0.0-2.0); HEMATOCRIT 24 % (33-45); HEMOGLOBIN 7.9 g/dL (11.5-14.8); LYMPHOCYTES # (AUTO) 0.8 K/uL (0.8-4.8); LYMPHOCYTES % (AUTO) 3.5 % (20.0-44.0); MEAN CORPUSCULAR HEMOGLOBIN 30 PG (26.0-33.0); MEAN CORPUSCULAR HGB CONC 33 g/dl (31.0-36.0); MEAN CORPUSCULAR VOLUME 90 fL (82-100); MONOCYTES # (AUTO) 0.5 K/uL (0.1-1.30); MONOCYTES % (AUTO) 2.2 % (2.0-12.0); NEUTROPHILS # (AUTO) 22.6 K/uL (1.8-8.9); NEUTROPHILS % (AUTO) 94.1 % (43.0-81.0); RED BLOOD CELL COUNT(AUTO) 2.65 MIL/uL (4.0-5.2); RED CELL DISTRIBUTION WIDTH 20.4 % (11.5-15.0); WHITE BLOOD COUNT (AUTO) 24.1 K/uL (4.3-11.0)
[2023-07-26 04:11] LABS: PLATELET COUNT (AUTO) 47 K/uL (150-450)
[2023-07-26] MEDS: PHENYLEPHRINE 10 MG/ML VIAL ONE (04:36)
[2023-07-26 05:38] LABS: BAND % (MANUAL) 1 % (0.0-5.0); LYMPHOCYTES % (MANUAL) 4 % (16-48); MONOCYTES % (MANUAL) 5 % (0-11.0); NEUTROPHILS % (MANUAL) 90 (42-76)
[2023-07-26 05:39] LABS: ANISOCYTOSIS 2+; PLATELET ESTIMATE DECRE; TARGET CELLS 2+
[2023-07-26 07:20] LABS: FIBRINOGEN ACTIVITY 103 Mg/dL (213-485); INR 2.32 (0.91-1.10); PROTHROMBIN TIME 23.3 SECS (9.2-11.1)
[2023-07-26 07:55] LABS: D-DIMER > 35.20 mg/L(FEU (0.17-0.50)
[2023-07-26] MEDS: VANCOMYCIN 750 MG in IV D5W 250 ML IV SCH (08:19)
[2023-07-26] MEDS: MEROPENEM 500 MG in IV NS 0.9% 50 ML IV SCH (09:52)
[2023-07-26 11:51] LABS: ABG BASE EXCESS -6.8 mmol/L; ABG OXYGEN SATURATION 87.7 % (92.0-98.5); ABG PCO2 48.5 mmHg (35.0-45.0); ABG PO2 65.5 mmHg (75.0-100.0); COHb 0.3 % (0.5-1.5); MetHb 0.6 % (0.0-1.5); O2Hb 86.9 % (94.0-97.0); SITE, ABG A-Line
[2023-07-26] MEDS: PHYTONADIONE INJ 10 MG/1 ML AMPUL SQ ONE (14:50)
[2023-07-27] VITALS (94 sets, daily range): BP systolic 82–110; BP diastolic 38–58; TEMP 96.3–97.6; O2SAT 19–79
[2023-07-27 04:32] LABS: BASOPHILS # (AUTO) 0.2 K/uL (0.0-0.2); BASOPHILS % (AUTO) 0.8 % (0.0-2.0); EOSINOPHILS % (AUTO) 0.1 % (0.0-6.0); HEMATOCRIT 24 % (33-45); LYMPHOCYTES # (AUTO) 0.6 K/uL (0.8-4.8); LYMPHOCYTES % (AUTO) 2.1 % (20.0-44.0); MEAN CORPUSCULAR HEMOGLOBIN 30 PG (26.0-33.0); MEAN CORPUSCULAR HGB CONC 33 g/dl (31.0-36.0); MEAN CORPUSCULAR VOLUME 91 fL (82-100); MONOCYTES # (AUTO) 0.5 K/uL (0.1-1.30); MONOCYTES % (AUTO) 1.8 % (2.0-12.0); NEUTROPHILS # (AUTO) 25.5 K/uL (1.8-8.9); NEUTROPHILS % (AUTO) 95.2 % (43.0-81.0); PLATELET COUNT (AUTO) 51 K/uL (150-450); RED BLOOD CELL COUNT(AUTO) 2.64 MIL/uL (4.0-5.2); RED CELL DISTRIBUTION WIDTH 20.5 % (11.5-15.0); WHITE BLOOD COUNT (AUTO) 26.8 K/uL (4.3-11.0)
[2023-07-27 04:42] LABS: CALCIUM, SERUM 6.8 mg/dL (8.5-10.1); POTASSIUM 4.5 mmol/L (3.5-5.1)
[2023-07-27 05:26] LABS: INR 2.32 (0.91-1.10); PROTHROMBIN TIME 23.3 SECS (9.2-11.1)
[2023-07-27 05:57] LABS: D-DIMER 4.39 mg/L(FEU (0.17-0.50)
[2023-07-27] MEDS: NOREPINEPHRINE 4 MG/4 ML AMPUL IV ONE (06:13)
[2023-07-27] MEDS: PHENYLEPHRINE 10 MG/ML VIAL ONE (06:35)
[2023-07-27 06:39] LABS: BAND % (MANUAL) 4 % (0.0-5.0); BASOPHILS % (MANUAL) 0 % (0.0-2.0); EOSINOPHILS % (MANUAL) 0 % (0-4); LYMPHOCYTES % (MANUAL) 4 % (16-48); MONOCYTES % (MANUAL) 5 % (0-11.0); NEUTROPHILS % (MANUAL) 87 (42-76)
[2023-07-27 06:40] LABS: ANISOCYTOSIS 1+; HYPOCHROMASIA 1+; OVALOCYTES 1+; PLATELET ESTIMATE DECREASED; TARGET CELLS 1+
[2023-07-27 08:51] LABS: ABG BASE EXCESS -8.9 mmol/L; ABG OXYGEN SATURATION 86.4 % (92.0-98.5); ABG PCO2 47.3 mmHg (35.0-45.0); ABG TOTAL HEMOGLOBIN 8.9 G/dL (12.0-16.0); AaDO2 602.7 mmHg; COHb 0.2 % (0.5-1.5); MetHb 0.3 % (0.0-1.5); SITE, ABG A-Line
[2023-07-27] MEDS: DEXTROSE 50%-WATER 50 ML DISP.SYRIN IV PRN (11:16)
[2023-07-28] VITALS (89 sets, daily range): BP systolic 85–110; BP diastolic 41–52; TEMP 95.6–97.2; O2SAT 70
[2023-07-28 04:11] LABS: BASOPHILS # (AUTO) 0.3 K/uL (0.0-0.2); BASOPHILS % (AUTO) 0.9 % (0.0-2.0); EOSINOPHILS % (AUTO) 0.1 % (0.0-6.0); HEMATOCRIT 24 % (33-45); HEMOGLOBIN 8.1 g/dL (11.5-14.8); LYMPHOCYTES # (AUTO) 1.3 K/uL (0.8-4.8); LYMPHOCYTES % (AUTO) 4.2 % (20.0-44.0); MEAN CORPUSCULAR HEMOGLOBIN 31 PG (26.0-33.0); MEAN CORPUSCULAR HGB CONC 34 g/dl (31.0-36.0); MEAN CORPUSCULAR VOLUME 91 fL (82-100); MONOCYTES # (AUTO) 0.4 K/uL (0.1-1.30); MONOCYTES % (AUTO) 1.2 % (2.0-12.0); NEUTROPHILS # (AUTO) 28.2 K/uL (1.8-8.9); NEUTROPHILS % (AUTO) 93.6 % (43.0-81.0); PLATELET COUNT (AUTO) 56 K/uL (150-450); RED BLOOD CELL COUNT(AUTO) 2.65 MIL/uL (4.0-5.2); RED CELL DISTRIBUTION WIDTH 20.4 % (11.5-15.0)
[2023-07-28 04:20] LABS: CALCIUM, SERUM 7.1 mg/dL (8.5-10.1); CREATININE 3.9 mg/dL (0.6-1.3); POTASSIUM 4.4 mmol/L (3.5-5.1); WHITE BLOOD COUNT (AUTO) 30.1 K/uL (4.3-11.0)
[2023-07-28 04:37] LABS: PARTIAL THROMBOPLASTIN TIME 65.8 SEC (24.3-34.3)
[2023-07-28 06:22] LABS: ANISOCYTOSIS 1+; BAND % (MANUAL) 9 % (0.0-5.0); BASOPHILS % (MANUAL) 0 % (0.0-2.0); EOSINOPHILS % (MANUAL) 0 % (0-4); HYPOCHROMASIA 1+; LYMPHOCYTES % (MANUAL) 6 % (16-48); MONOCYTES % (MANUAL) 3 % (0-11.0); NEUTROPHILS % (MANUAL) 82 (42-76); PLATELET ESTIMATE DECREASED; TARGET CELLS 1+
[2023-07-28 07:22] LABS: D-DIMER > 35.00 mg/L(FEU (0.17-0.50)
[2023-07-28 07:23] LABS: FIBRINOGEN ACTIVITY 97 Mg/dL (213-485)
[2023-07-28] MEDS ORDERED: diphenhydrAMINE HCL 50 MG/ML VIAL IV ONE (11:30)
[2023-07-29] VITALS (85 sets, daily range): BP systolic 83–111; BP diastolic 29–59; TEMP 96–96.7; O2SAT 70
[2023-07-29] MEDS: IV 10% DEXTROSE 1,000 ML IV PRN (00:39)
[2023-07-29] MEDS: NOREPINEPHRINE 4 MG/4 ML AMPUL IV ONE (01:48)
[2023-07-29] MEDS: SODIUM BICARBONATE SYR 50 MEQ/50 ML DISP.SYRIN ONE (04:59)
[2023-07-29 05:42] LABS: CREATININE 3.8 mg/dL (0.6-1.3); POTASSIUM 4.5 mmol/L (3.5-5.1)
[2023-07-29 05:53] LABS: INR 2.74 (0.91-1.10); PROTHROMBIN TIME 27.2 SECS (9.2-11.1)
[2023-07-29 05:58] LABS: D-DIMER > 35.00 mg/L(FEU (0.17-0.50)
[2023-07-29 06:09] LABS: FIBRINOGEN ACTIVITY 68 Mg/dL (213-485); PARTIAL THROMBOPLASTIN TIME 88.6 SEC (24.3-34.3)
[2023-07-29] MEDS ORDERED: MIDAZOLAM HCL 200 MG in IV NS 0.9% 60 ML IV PRN (09:30)
[2023-07-29] MEDS: MIDAZOLAM HCL 200 MG in IV NS 0.9% 60 ML IV PRN (16:22)
[2023-07-29] MEDS ORDERED: Sodium Bicarbonate 150 MEQ in IV D5W 1,000 ML IV SCH (16:30)
[2023-07-29] MEDS: Sodium Bicarbonate 150 MEQ in IV D5W 1,000 ML IV SCH (21:08)
[2023-07-30] VITALS (61 sets, daily range): BP systolic 74–102; BP diastolic 29–40; TEMP 96–96.5
[2023-07-30 05:06] LABS: BASOPHILS # (AUTO) 0.1 K/uL (0.0-0.2); BASOPHILS % (AUTO) 0.3 % (0.0-2.0); EOSINOPHILS # (AUTO) 0.3 K/uL (0.0-0.7); EOSINOPHILS % (AUTO) 1.3 % (0.0-6.0); HEMATOCRIT 23 % (33-45); HEMOGLOBIN 7.5 g/dL (11.5-14.8); LYMPHOCYTES # (AUTO) 0.7 K/uL (0.8-4.8); LYMPHOCYTES % (AUTO) 2.8 % (20.0-44.0); MEAN CORPUSCULAR HEMOGLOBIN 30 PG (26.0-33.0); MEAN CORPUSCULAR HGB CONC 32 g/dl (31.0-36.0); MEAN CORPUSCULAR VOLUME 93 fL (82-100); MONOCYTES # (AUTO) 0.2 K/uL (0.1-1.30); MONOCYTES % (AUTO) 0.9 % (2.0-12.0); NEUTROPHILS % (AUTO) 94.7 % (43.0-81.0); RED BLOOD CELL COUNT(AUTO) 2.49 MIL/uL (4.0-5.2); RED CELL DISTRIBUTION WIDTH 21.1 % (11.5-15.0); WHITE BLOOD COUNT (AUTO) 24.3 K/uL (4.3-11.0)
[2023-07-30 05:26] LABS: CALCIUM, SERUM 7.4 mg/dL (8.5-10.1); CREATININE 3.7 mg/dL (0.6-1.3); POTASSIUM 4.4 mmol/L (3.5-5.1)
[2023-07-30 05:33] LABS: PLATELET COUNT (AUTO) 43 K/uL (150-450)
[2023-07-30 06:02] LABS: D-DIMER 1.09 mg/L(FEU (0.17-0.50); INR 2.75 (0.91-1.10); PROTHROMBIN TIME 27.3 SECS (9.2-11.1)
[2023-07-30 06:14] LABS: PARTIAL THROMBOPLASTIN TIME 91.2 SEC (24.3-34.3)
[2023-07-30 11:11] LABS: ANISOCYTOSIS 1+; BAND % (MANUAL) 8 % (0.0-5.0); BASOPHILS % (MANUAL) 0 % (0.0-2.0); EOSINOPHILS % (MANUAL) 2 % (0-4); HYPOCHROMASIA 1+; LYMPHOCYTES % (MANUAL) 6 % (16-48); MONOCYTES % (MANUAL) 5 % (0-11.0); NEUTROPHILS % (MANUAL) 79 (42-76); PLATELET ESTIMATE DECREASED; TARGET CELLS 1+
[2023-07-30] MEDS ORDERED: MORPHINE SULFATE INJ 4 MG/ML DISP.SYRIN IV PRN (15:00)
[2023-07-30] MEDS: MORPHINE SULFATE INJ 4 MG/ML DISP.SYRIN IV PRN (15:53)
[2023-07-30] MEDS: LORAZEPAM INJ 2 MG/ML VIAL IV PRN (15:54)
== END 2023-07-30 16:30 | DRG 870 ==
LOC: ER 06:07 → ICU 09:36
PROVIDERS: ADMIT Nurse Practitioner Family; ATTEND Nurse Practitioner Acute Care
PROC: 05HY33Z Insertion of Infusion Device into Upper Vein, Percutaneous Approach (ICD-10-PCS; 2023-07-10)
PROC: 0DJ08ZZ Inspection of Upper Intestinal Tract, Via Natural or Artificial Opening Endoscopic (ICD-10-PCS; principal; 2023-07-12)
PROC: 05HA33Z Insertion of Infusion Device into Left Brachial Vein, Percutaneous Approach (ICD-10-PCS; 2023-07-12)
PROC: 5A1955Z Respiratory Ventilation, Greater than 96 Consecutive Hours (ICD-10-PCS; 2023-07-12)
PROC: B54NZZA Ultrasonography of Left Upper Extremity Veins, Guidance (ICD-10-PCS; 2023-07-12)
PROC: 0BH18EZ Insertion of Endotracheal Airway into Trachea, Via Natural or Artificial Opening Endoscopic (ICD-10-PCS; 2023-07-12)
PROC: 30233K1 Transfusion of Nonautologous Frozen Plasma into Peripheral Vein, Percutaneous Approach (ICD-10-PCS; 2023-07-12)
PROC: 30233N1 Transfusion of Nonautologous Red Blood Cells into Peripheral Vein, Percutaneous Approach (ICD-10-PCS; 2023-07-12)
PROC: 30233M1 Transfusion of Nonautologous Plasma Cryoprecipitate into Peripheral Vein, Percutaneous Approach (ICD-10-PCS; 2023-07-12)
PROC: 06HM33Z Insertion of Infusion Device into Right Femoral Vein, Percutaneous Approach (ICD-10-PCS; 2023-07-13)
PROC: B54BZZA Ultrasonography of Right Lower Extremity Veins, Guidance (ICD-10-PCS; 2023-07-13)
DX: A41.9 Sepsis, unspecified organism (principal); N17.0 Acute kidney failure with tubular necrosis; D65 Disseminated intravascular coagulation [defibrination syndrome]; I21.4 Non-ST elevation (NSTEMI) myocardial infarction; G93.41 Metabolic encephalopathy; J15.9 Unspecified bacterial pneumonia; R65.21 Severe sepsis with septic shock; J15.69 Pneumonia due to other Gram-negative bacteria; K76.7 Hepatorenal syndrome; J96.01 Acute respiratory failure with hypoxia; K65.2 Spontaneous bacterial peritonitis; E87.1 Hypo-osmolality and hyponatremia; J98.11 Atelectasis; N39.0 Urinary tract infection, site not specified; D62 Acute posthemorrhagic anemia; D61.818 Other pancytopenia; E87.20 Acidosis, unspecified; K76.6 Portal hypertension; B17.9 Acute viral hepatitis, unspecified; R18.8 Other ascites; F10.239 Alcohol dependence with withdrawal, unspecified; D68.4 Acquired coagulation factor deficiency; J90 Pleural effusion, not elsewhere classified; K92.2 Gastrointestinal hemorrhage, unspecified; Z68.42 Body mass index [BMI] 45.0-49.9, adult; Z51.5 Encounter for palliative care; K70.30 Alcoholic cirrhosis of liver without ascites; R57.1 Hypovolemic shock; E66.01 Morbid (severe) obesity due to excess calories; E78.5 Hyperlipidemia, unspecified; E86.1 Hypovolemia; E87.6 Hypokalemia; E87.70 Fluid overload, unspecified; E88.09 Other disorders of plasma-protein metabolism, not elsewhere classified; F10.20 Alcohol dependence, uncomplicated; I10 Essential (primary) hypertension; R04.0 Epistaxis; K43.9 Ventral hernia without obstruction or gangrene; K20.90 Esophagitis, unspecified without bleeding; Z20.822 Contact with and (suspected) exposure to COVID-19; R74.01 Elevation of levels of liver transaminase levels; I25.10 Atherosclerotic heart disease of native coronary artery without angina pectoris; Y90.0 Blood alcohol level of less than 20 mg/100 ml; R53.1 Weakness; D63.1 Anemia in chronic kidney disease; D63.8 Anemia in other chronic diseases classified elsewhere; N18.9 Chronic kidney disease, unspecified; K29.70 Gastritis, unspecified, without bleeding; Z66 Do not resuscitate
CPT/HCPCS: 31720; 36410; 36415; 36600; 70450-TC; 71045-TC; 76700-TC; 80048-TC; 80053-TC; 80061-TC; 80076-TC; 80202-TC; 81001; 82040-TC; 82140-TC; 82247-TC; 82248-TC; 82533; 82550-TC; 82553; 82570-TC; 82607-TC; 82728-TC; 82784; 82803-TC; 82947-TC; 82962-TC; 83540-TC; 83605-TC; 83735-TC; 83970; 84100-TC; 84155; 84165; 84300-TC; 84443-TC; 84478-TC; 84484-TC; 85025-TC; 85027-TC; 85045-TC; 85385-TC; 85396; 85610-TC; 85730-TC; 86225; 86235; 86334; 86431-TC; 86803; 86850-TC; 87040-TC; 87086-TC; 87806; 93307-TC; 94002-TC; 94003-TC; 94799-TC; 95819-TC; 97112-TC; 97530-TC; A4216; A4223; A6253; A6403; C9113; G0378; G0480; J0330; J0456; J0692; J0696; J1200; J1720; J1815; J1940; J2060; J2185; J2248; J2250; J2270; J2354; J2704; J3370; J3371; J3430; J3475; J3480; J3490; J7030; J7040; J7050; J7060; J7070; P9012; P9016; P9017; P9034; P9047